=== PATIENT | female | born 1955 | race Caucasian/White ===

== ENCOUNTER 2016-05-26 08:57 | Emergency (ER) | payer OTHER ==
[2016-05-26] MEDS ORDERED: AMMONIA AROMATIC INHALANT (FLOOR STOCK) As Ordered ONE (08:59)
[2016-05-26] MEDS ORDERED: ONDANSETRON 4MG/2ML VIAL (J2405) As Ordered ONE (09:11)
[2016-05-26] MEDS ORDERED: fentaNYL 100 MCG/2 ML INJECTION (J3010) As Ordered ONE (09:12)
[2016-05-26 09:25] LABS: BASO % 0.4 % (0.0-1.0); EOS % 1.1 % (0.0-3.0); LARGE UNSTAINED CELL # 0.1 K/mm3 (0.0-0.4); LARGE UNSTAINED CELL % 2.2 % (0.0-4.0); LYMPH # 1.3 K/mm3 (1.5-4.5); LYMPH % 26.9 % (24.0-44.0); MEAN CORPUSCULAR HEMOGLOBIN 31.4 pg (27.0-33.0); MEAN CORPUSCULAR VOLUME 92.4 fl (80.0-96.0); MONO # 0.3 K/mm3 (0.0-0.8); NEUTROPHILS % 63.5 % (36.0-66.0); PLATELET COUNT, AUTOMATED 248 k/mm3 (150-450); RED CELL DISTRIBUTION WIDTH 11.7 % (11.5-14.5); WHITE BLOOD COUNT 4.7 K/mm3 (4.0-10.0)
--- NOTE | 2016-05-26 09:47 | REP ---
Left foot series: Four views. History: Lateral malleolar pain after a fall. Findings: Four views of the left foot show some diffuse osteopenia. There is osteoarthritis at the first MTP joint with spurring. Mild plantar calcaneal spurring is noted. No foot fracture is appreciated. Impression: Osteoarthritis and diffuse osteopenia. No foot fracture seen. Signed by Korey Miguel MD 05/26/2016 06:32 P
--- NOTE | 2016-05-26 09:48 | REP ---
Left ankle series: Four views. History: Lateral malleolar pain after fall. Findings: There is a chip fracture nondisplaced involving the tip of the lateral malleolus seen on the frontal radiographs. Ankle mortise is intact. No tibial fracture is seen. There is some midfoot osteoarthritis and mild heel spurring is seen. Impression: Nondisplaced lateral malleolar fracture with associated swelling. Midfoot osteoarthritis. Signed by Korey Miguel MD 05/26/2016 06:33 P
[2016-05-26 09:56] LABS: ANION GAP 7 MEQ/L (8-16); BLOOD UREA NITROGEN 18 MG/DL (7-18); CALCIUM LEVEL 8.8 MG/DL (8.8-10.2); CARBON DIOXIDE LEVEL 32 MEQ/L (21-32); CHLORIDE LEVEL 103 MEQ/L (98-107); CREATININE FOR GFR 0.95 MG/DL (0.55-1.02); GLOMERULAR FILTRATION RATE > 60.0 (>45); GLUCOSE, FASTING 85 MG/DL (80-110); POTASSIUM SERUM 3.8 MEQ/L (3.5-5.1); SODIUM LEVEL 142 MEQ/L (136-145)
--- NOTE | 2016-05-26 10:41 | EDDOCDS ---
Physician Documentation [facility] Name: Fiordaliza Albert Age: 60 yrs Sex: Female : 1955 Arrival Date: 05/26/2016 Time: 08:57 Bed 2 Private MD: Анна Hauser Disposition: 05/26/16 10:26 Discharged to Home/Self Care. Impression: Stress fracture, left ankle. - Condition is Stable. - Discharge Instructions: Ankle Fracture, Ankle Pain. - Prescriptions for Percocet 5- 325 mg Oral Tablet - take 1 tablet by ORAL route every 8 hours As needed MDD: 4 tabs; 15 tablet. - Medication Reconciliation, Work Release Form - 3 day, Local Pharmacy Hours form. - Follow up: Darvin Sandoval; When: Call to arrange an appointment; Reason: Continuance of care. - Problem is new. - Symptoms have improved. Historical: - Allergies: SULFA (SULFONAMIDES); - Home Meds: 1. Citalopram 15 mg Oral 1 tab nightly (Last dose: 05/25/2016) - PMHx: Depression; - PSHx: Tubal ligation; - Social history: Smoking status: Patient states was never smoker of tobacco. No barriers to communication noted, The patient speaks fluent [place] Leonean, Speaks appropriately for age. - Family history: Not pertinent. - : The pt / caregiver states he / she is not on anticoagulants. Home medication list is obtained from the patient. - Exposure Risk Screening:: None identified. Vital Signs: 05/26 09:06 BP 152 / 87; Pulse 85; Resp 18; Temp 97.9(O); Pulse Ox 100% on R/A; Weight 81.65 kg / jrd 180.01 lbs (R); Height 5 ft. 8 in. (172.72 cm) (R); Pain 9/10; 09:15 BP 136 / 75 (auto/); dsf 09:16 Pulse Ox 94% ; dsf 09:31 BP 149 / 88 (auto/); dsf 09:31 Pulse Ox 97% ; dsf 09:45 Pain 2/10; dsf 09:46 BP 139 / 79 (auto/); dsf 09:46 Resp 16; Pulse Ox 97% on R/A; dsf 09:47 BP 144 / 81 (auto/); dsf 09:47 Pulse Ox 97% ; dsf 10:01 BP 137 / 77 (auto/); dsf 10:02 Pulse 67; Resp 20; Temp 98.2(O); Pulse Ox 98% on R/A; Pain 0/10; dsf 10:16 BP 138 / 82 (auto/); dsf 10:16 Pulse Ox 98% ; dsf 09:06 Body Mass Index 27.37 (81.65 kg, 172.72 cm) jrd Procedures: 10:30 Fracture care/splinting: (Stabilizing Care) Splint applied to left leg using Orthoglass fg splint, applied by tech. Examined by me, post splint application: neurovascular intact, brisk capillary refill noted, Patient tolerated well. MDM: 09:06 IV Saline Lock ordered. fg 09:06 fentaNYL (PF) 25 mcg IVP once ordered. fg 09:06 Ondansetron 4 mg IVP once ordered. fg 09:07 CBC with Diff Ordered. EDMS 09:07 Basic Metabolic Profile Ordered. EDMS 09:08 Ankle, Complete Ordered. EDMS 09:08 Foot, Complete Ordered. EDMS 10:04 Financial registration complete. lg 10:37 [facility] Payment Agreement was scanned into [employer] and attached to record. lg Administered Medications: 09:17 Drug: fentaNYL (PF) 25 mcg [fentanyl (PF) 50 mcg/mL injection solution (0.5 mL)] Route: dsf IVP; Site: left antecubital; 09:45 Follow up: Pain 2/10 Adult; see charted VS dsf 09:17 Drug: Ondansetron 4 mg [ondansetron HCl 2 mg/mL intravenous solution (2 mL)] Route: dsf IVP; Site: left antecubital; Signatures: Dispatcher [employer] EDMS Jalen Delatorre, Reg Reg lg Judie Wilcox,RONIT RN dsf Mariia Lane MD MD fg The chart was reviewed and I authenticate all verbal orders and agree with the evaluation and treatment provided.Attachments: 10:37 [facility] Payment Agreement lg MTDD
--- NOTE | 2016-05-26 10:41 | EDDOCDS ---
Nurse's Notes [facility] Name: Fiordaliza Albert Age: 60 yrs Sex: Female : 1955 Arrival Date: 05/26/2016 Time: 08:57 Bed 2 Private MD: Анна Hauser Diagnosis: Stress fracture, left ankle Presentation: 05/26 09:00 Presenting complaint: EMS states: pt slipped and fell at the parking lot at work and dsf inured left ankle. Nurse gave pt 600 mg Motrin. Suicide/Homicide risk assessment- the patient denies having any suicidal and/or homicidal ideations and does not present with any other emotional, behavioral or mental health complaints. Transition of care: patient was not received from another setting of care. 09:00 Method Of Arrival: Ambulance dsf 09:00 Acuity: MARTIN Level 3 dsf 09:08 Adult Sepsis Screening: The patient does not have new or worsening altered mentation. dsf Patient's respiratory rate is less than 22. Systolic blood pressure is greater than 100. Patient has a qSOFA score of 0- Negative Sepsis Screen. Status: Patient is not a social services analyst or dependent. Triage Assessment: 09:05 General: Appears uncomfortable, Behavior is appropriate for age, cooperative. Pain: dsf Location: left lateral malleolus Pain currently is 8 out of 10 on a pain scale. Quality of pain is described as sharp. HIV screening NA for this visit Offered previously. The patient is triaged at the bedside. See Assessment in Nurses Notes section of ED record. Neurological: Level of Consciousness is awake, alert, Oriented to person, place, time. Cardiovascular: Capillary refill < 3 seconds Heart tones S1 S2 present. Respiratory: Airway is patent Respiratory effort is even, unlabored, Respiratory pattern is regular, symmetrical, Breath sounds are clear bilaterally. GI: Abdomen is non- distended Bowel sounds present X 4 quads. Abd is soft and non tender X 4 quads. Derm: Skin is pink, warm & dry. Musculoskeletal: Circulation, motion, and sensation intact Capillary refill < 3 seconds in left toes Range of motion limited in left ankle Reports pain in left lateral malleolus. Historical: - Allergies: SULFA (SULFONAMIDES); - Home Meds: 1. Citalopram 15 mg Oral 1 tab nightly (Last dose: 05/25/2016) - PMHx: Depression; - PSHx: Tubal ligation; - Social history: Smoking status: Patient states was never smoker of tobacco. No barriers to communication noted, The patient speaks fluent Libyan, Speaks appropriately for age. - Family history: Not pertinent. - : The pt / caregiver states he / she is not on anticoagulants. Home medication list is obtained from the patient. - Exposure Risk Screening:: None identified. Screenin:07 Screening information is obtained from the patient. Fall risk: At risk due to prior dsf history of falls, The following interventions are performed due to a positive Fall Risk Screen: Fall Risk is added to Special Handling on the patient Summary Screen. A Fall Risk Bracelet was applied to the patient. Side Rails are placed in the up position. A Call Verma is given with instruction to call for help when getting out of bed. Fall Alert bracelet is placed on the patient. Assistance ADL's: requires no assistance with activities of daily living. Abuse/DV Screen: The patient / caregiver reports he/she is: not in a situation that causes fear, pain or injury. Nutritional screening: No deficits noted. Advance Directives: Currently, there is a health care proxy, Ishan Epstein . home support is adequate. Assessment: 09:00 General: see triage assessment . dsf 09:54 General: Appears in no apparent distress, comfortable, Behavior is appropriate for age, dsf cooperative. Pain: Location: left lateral malleolus Pain currently is 2 out of 10 on a pain scale. Neurological: Level of Consciousness is awake, alert. Cardiovascular: Capillary refill < 3 seconds. Respiratory: Airway is patent Respiratory effort is even, unlabored, Respiratory pattern is regular, symmetrical. Derm: Skin is pink, warm & dry. 10:31 General: Appears in no apparent distress, comfortable, Behavior is appropriate for age, dsf cooperative. Pain: Denies pain. Neurological: Level of Consciousness is awake, alert. Cardiovascular: Capillary refill < 3 seconds. Respiratory: Airway is patent Respiratory effort is even, unlabored, Respiratory pattern is regular, symmetrical. GI: Abdomen is non- distended. Derm: Skin is pink, warm & dry. Musculoskeletal: Capillary refill < 3 seconds in left toes. Vital Signs: 09:06 BP 152 / 87; Pulse 85; Resp 18; Temp 97.9(O); Pulse Ox 100% on R/A; Weight 81.65 kg jrd (R); Height 5 ft. 8 in. (172.72 cm) (R); Pain 9/10; 09:15 BP 136 / 75 (auto/); dsf 09:16 Pulse Ox 94% ; dsf 09:31 BP 149 / 88 (auto/); dsf 09:31 Pulse Ox 97% ; dsf 09:45 Pain 2/10; dsf 09:46 BP 139 / 79 (auto/); dsf 09:46 Resp 16; Pulse Ox 97% on R/A; dsf 09:47 BP 144 / 81 (auto/); dsf 09:47 Pulse Ox 97% ; dsf 10:01 BP 137 / 77 (auto/); dsf 10:02 Pulse 67; Resp 20; Temp 98.2(O); Pulse Ox 98% on R/A; Pain 0/10; dsf 10:16 BP 138 / 82 (auto/); dsf 10:16 Pulse Ox 98% ; dsf 09:06 Body Mass Index 27.37 (81.65 kg, 172.72 cm) [facility] Vitals: 09:05 Log In Time N/A - ambulance arrival. dsf ED Course: 08:58 Patient visited by Bhumika Mathews, Nurse Navigator. lbd 08:58 Анна Hauser is Private Physician. lbd 08:58 Patient moved to Waiting lbd 08:59 Tamara Ashley,RN is Primary Nurse. lbd 08:59 Patient moved to 2 lbd 09:02 Triage Initiated dsf 09:[address] MD is Attending Physician. fg 09:05 Patient visited by Mariia Lane MD. fg 09:17 Basic Metabolic Profile Sent. dsf 09:17 Inserted saline lock: 20 gauge in left antecubital area and blood collected. The kc3 patient tolerated the procedure well. Labs drawn. (by ED staff). Sent per order to lab. 09:18 CBC with Diff Sent. dsf 09:23 Patient moved to Radiology dsf 09:35 Patient moved to 2 [facility] 09:54 Patient visited by Judie Wilcox,RONIT. dsf 10:16 Foot, Complete Returned. EDMS 10:16 Ankle, Complete Returned. EDMS 10:24 Darvin Sandoval is Referral Physician. fg 10:25 Patient visited by Maryan Whitaker PCA. rs6 10:25 Assist provider with fracture care. rs6 10:31 Discontinued lock intact, bleeding controlled, pressure dressing applied, No dsf redness/swelling at site. No procedures done that require assistance. Posterior lower leg splint applied on left leg. Patient with positive distal sensation and brisk distal capillary refill after application. 10:32 The patient / caregiver is instructed regarding the plan of care and ED course. dsf 10:37 Patient visited by Jalen Delatorre Reg. lg 10:37 [facility] Payment Agreement was scanned into [employer] and attached to record. lg Administered Medications: 09:17 Drug: fentaNYL (PF) 25 mcg [fentanyl (PF) 50 mcg/mL injection solution (0.5 mL)] Route: dsf IVP; Site: left antecubital; 09:45 Follow up: Pain 2/10 Adult; see charted VS dsf 09:17 Drug: Ondansetron 4 mg [ondansetron HCl 2 mg/mL intravenous solution (2 mL)] Route: dsf IVP; Site: left antecubital; Intake: Order Results: Lab Order: CBC with Diff; SPEC'M 05/26/16 09:16 Test: WHITE BLOOD COUNT; Value: 4.7; Range: 4.0-10.0; Units: K/mm3; Status: F Test: RED BLOOD COUNT; Value: 4.82; Range: 4.00-5.40; Units: M/mm3; Status: F Test: HEMOGLOBIN; Value: 15.1; Range: 12.0-16.0; Units: g/dl; Status: F Test: HEMATOCRIT; Value: 44.5; Range: 36.0-47.0; Units: %; Status: F Test: MEAN CORPUSCULAR VOLUME; Value: 92.4; Range: 80.0-96.0; Units: fl; Status: F Test: MEAN CORPUSCULAR HEMOGLOBIN; Value: 31.4; Range: 27.0-33.0; Units: pg; Status: F Test: MEAN CORPUSCULAR HGB CONC; Value: 34.0; Range: 32.0-36.5; Units: g/dl; Status: F Test: RED CELL DISTRIBUTION WIDTH; Value: 11.7; Range: 11.5-14.5; Units: %; Status: F Test: PLATELET COUNT, AUTOMATED; Value: 248; Range: 150-450; Units: k/mm3; Status: F Test: NEUTROPHILS %; Value: 63.5; Range: 36.0-66.0; Units: %; Status: F Test: LYMPH %; Value: 26.9; Range: 24.0-44.0; Units: %; Status: F Test: MONO %; Value: 6.0; Range: 0.0-5.0; Abnormal: Above high normal; Units: %; Status: F Test: EOS %; Value: 1.1; Range: 0.0-3.0; Units: %; Status: F Test: BASO %; Value: 0.4; Range: 0.0-1.0; Units: %; Status: F Test: LARGE UNSTAINED CELL %; Value: 2.2; Range: 0.0-4.0; Units: %; Status: F Test: NEUTROPHILS #; Value: 3.0; Range: 1.8-7.7; Units: K/mm3; Status: F Test: LYMPH #; Value: 1.3; Range: 1.5-4.5; Abnormal: Below low normal; Units: K/mm3; Status: F Test: MONO #; Value: 0.3; Range: 0.0-0.8; Units: K/mm3; Status: F Test: EOS #; Value: 0.0; Range: 0.0-0.50; Units: K/mm3; Status: F Test: BASO #; Value: 0.0; Range: 0.0-0.2; Units: K/mm3; Status: F Test: LARGE UNSTAINED CELL #; Value: 0.1; Range: 0.0-0.4; Units: K/mm3; Status: F Lab Order: Basic Metabolic Profile; SPEC'M 05/26/16 09:16 Test: GLUCOSE, FASTING; Value: 85; Range: 80-110; Units: MG/DL; Status: F Test: BLOOD UREA NITROGEN; Value: 18; Range: 7-18; Units: MG/DL; Status: F Test: CREATININE FOR GFR; Value: 0.95; Range: 0.55-1.02; Units: MG/DL; Status: F Test: GLOMERULAR FILTRATION RATE; Value: > 60.0; Range: >45; Status: F Test: SODIUM LEVEL; Value: 142; Range: 136-145; Units: MEQ/L; Status: F Test: POTASSIUM SERUM; Value: 3.8; Range: 3.5-5.1; Units: MEQ/L; Status: F Test: CHLORIDE LEVEL; Value: 103; Range: 98-107; Units: MEQ/L; Status: F Test: CARBON DIOXIDE LEVEL; Value: 32; Range: 21-32; Units: MEQ/L; Status: F Test: ANION GAP; Value: 7; Range: 8-16; Abnormal: Below low normal; Units: MEQ/L; Status: F Test: CALCIUM LEVEL; Value: 8.8; Range: 8.8-10.2; Units: MG/DL; Status: F Test Note: ; Units are mL/min/1.73 m2 Chronic Kidney Disease Staging per NKF: Stage I & II GFR >=60 Normal to Mildly Decreased Stage III GFR 30-59 Moderately Decreased Stage IV GFR 15-29 Severely Decreased Stage V GFR <15 Very Little GFR Left ESRD GFR <15 on CLINICAL MICROBIOLOGIST Radiology Order: Ankle, Complete Test: Ankle, Complete REASON FOR EXAMINATION: lateral mal pain after fall; Left ankle series: Four views.; ; History: Lateral malleolar pain after fall.; ; Findings: There is a chip fracture nondisplaced involving the tip of the lateral; malleolus seen on the frontal radiographs. Ankle mortise is intact. No tibial; fracture is seen. There is some midfoot osteoarthritis and mild heel spurring is; seen.; ; Impression:; ; Nondisplaced lateral malleolar fracture with associated swelling. Midfoot; osteoarthritis.; ; ; ; ; Unreviewed; Radiology Order: Foot, Complete Test: Foot, Complete REASON FOR EXAMINATION: lateral mal pain after fall; Left foot series: Four views.; ; History: Lateral malleolar pain after a fall.; ; Findings: Four views of the left foot show some diffuse osteopenia. There is; osteoarthritis at the first MTP joint with spurring. Mild plantar calcaneal; spurring is noted. No foot fracture is appreciated.; ; Impression:; ; Osteoarthritis and diffuse osteopenia. No foot fracture seen.; ; ; ; ; Unreviewed; Outcome: 10:26 Discharge ordered by Provider. fg 10:32 No special radiology studies were completed. Property sent home with patient. dsf 10:39 Discharge Assessment: Patient awake, alert and oriented x 3. No cognitive and/or dsf functional deficits noted. Patient verbalized understanding of disposition instructions. patient administered narcotics - yes. Pt provided with safe discharge. The following High Risk Discharge criteria are identified: None. Discharged to home via wheelchair, with family. Condition: stable. Discharge instructions given to patient, family, Instructed on discharge instructions, follow up and referral plans. medication usage, no driving heavy equipment, crutch walking, Demonstrated understanding of instructions, crutch walking, pt had her own crutches Pt was receptive of discharge instructions/ teaching. Prescriptions given X 1, Work note provided to patient. 10:40 Patient left the ED. dsf Signatures: Dispatcher [employer] EDMS Bhumika Mathews, Nurse Navigator Unit lbd Jalen Delatorre, Eloy Reg Michaela Lee 4 Judie Wilcox,RONIT RN dsf Jared Olivas, FIRE SAFETY MANAGER FIRE SAFETY MANAGER jrd Maryan Whitaker, FIRE SAFETY MANAGER FIRE SAFETY MANAGER rs6 Mariia [address] MD MD fg Crane, Kelsi,RN RN kc3 Corrections: (The following items were deleted from the chart) 09:08 09:00 Acuity: MARTIN Level 4 dsf dsf 09:53 09:46 Pulse Ox 97%; dsf dsf MTDD
--- NOTE | 2016-05-28 11:41 | EDDOCDS ---
Nurse's Notes [facility] Name: Fiordaliza Albert Age: 60 yrs Sex: Female : 1955 Arrival Date: 05/26/2016 Time: 08:57 Bed 2 Private MD: Анна Hauser Diagnosis: Stress fracture, left ankle Presentation: 05/26 09:00 Presenting complaint: EMS states: pt slipped and fell at the parking lot at work and dsf inured left ankle. Nurse gave pt 600 mg Motrin. Suicide/Homicide risk assessment- the patient denies having any suicidal and/or homicidal ideations and does not present with any other emotional, behavioral or mental health complaints. Transition of care: patient was not received from another setting of care. 09:00 Method Of Arrival: Ambulance dsf 09:00 Acuity: MARTIN Level 3 dsf 09:08 Adult Sepsis Screening: The patient does not have new or worsening altered mentation. dsf Patient's respiratory rate is less than 22. Systolic blood pressure is greater than 100. Patient has a qSOFA score of 0- Negative Sepsis Screen. 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 Triage Assessment: 09:05 General: Appears uncomfortable, Behavior is appropriate for age, cooperative. Pain: dsf Location: left lateral malleolus Pain currently is 8 out of 10 on a pain scale. Quality of pain is described as sharp. HIV screening NA for this visit Offered previously. The patient is triaged at the bedside. See Assessment in Nurses Notes section of ED record. Neurological: Level of Consciousness is awake, alert, Oriented to person, place, time. Cardiovascular: Capillary refill < 3 seconds Heart tones S1 S2 present. Respiratory: Airway is patent Respiratory effort is even, unlabored, Respiratory pattern is regular, symmetrical, Breath sounds are clear bilaterally. GI: Abdomen is non- distended Bowel sounds present X 4 quads. Abd is soft and non tender X 4 quads. Derm: Skin is pink, warm & dry. Musculoskeletal: Circulation, motion, and sensation intact Capillary refill < 3 seconds in left toes Range of motion limited in left ankle Reports pain in left lateral malleolus. Historical: - Allergies: SULFA (SULFONAMIDES); - Home Meds: 1. Citalopram 15 mg Oral 1 tab nightly (Last dose: 05/25/2016) - PMHx: Depression; - PSHx: Tubal ligation; - Social history: Smoking status: Patient states was never smoker of tobacco. No barriers to communication noted, The patient speaks fluent Gibraltarian, Speaks appropriately for age. - Family history: Not pertinent. - : The pt / caregiver states he / she is not on anticoagulants. Home medication list is obtained from the patient. - Exposure Risk Screening:: None identified. Screenin:07 Screening information is obtained from the patient. Fall risk: At risk due to prior dsf history of falls, The following interventions are performed due to a positive Fall Risk Screen: Fall Risk is added to Special Handling on the patient Summary Screen. A Fall Risk Bracelet was applied to the patient. Side Rails are placed in the up position. A Call Verma is given with instruction to call for help when getting out of bed. Fall Alert bracelet is placed on the patient. Assistance ADL's: requires no assistance with activities of daily living. Abuse/DV Screen: The patient / caregiver reports he/she is: not in a situation that causes fear, pain or injury. Nutritional screening: No deficits noted. Advance Directives: Currently, there is a health care proxy, Ishan Epstein . home support is adequate. Assessment: 09:00 General: see triage assessment . dsf 09:54 General: Appears in no apparent distress, comfortable, Behavior is appropriate for age, dsf cooperative. Pain: Location: left lateral malleolus Pain currently is 2 out of 10 on a pain scale. Neurological: Level of Consciousness is awake, alert. Cardiovascular: Capillary refill < 3 seconds. Respiratory: Airway is patent Respiratory effort is even, unlabored, Respiratory pattern is regular, symmetrical. Derm: Skin is pink, warm & dry. 10:31 General: Appears in no apparent distress, comfortable, Behavior is appropriate for age, dsf cooperative. Pain: Denies pain. Neurological: Level of Consciousness is awake, alert. Cardiovascular: Capillary refill < 3 seconds. Respiratory: Airway is patent Respiratory effort is even, unlabored, Respiratory pattern is regular, symmetrical. GI: Abdomen is non- distended. Derm: Skin is pink, warm & dry. Musculoskeletal: Capillary refill < 3 seconds in left toes. Vital Signs: 09:06 BP 152 / 87; Pulse 85; Resp 18; Temp 97.9(O); Pulse Ox 100% on R/A; Weight 81.65 kg jrd (R); Height 5 ft. 8 in. (172.72 cm) (R); Pain 9/10; 09:15 BP 136 / 75 (auto/); dsf 09:16 Pulse Ox 94% ; dsf 09:31 BP 149 / 88 (auto/); dsf 09:31 Pulse Ox 97% ; dsf 09:45 Pain 2/10; dsf 09:46 BP 139 / 79 (auto/); dsf 09:46 Resp 16; Pulse Ox 97% on R/A; dsf 09:47 BP 144 / 81 (auto/); dsf 09:47 Pulse Ox 97% ; dsf 10:01 BP 137 / 77 (auto/); dsf 10:02 Pulse 67; Resp 20; Temp 98.2(O); Pulse Ox 98% on R/A; Pain 0/10; dsf 10:16 BP 138 / 82 (auto/); dsf 10:16 Pulse Ox 98% ; dsf 09:06 Body Mass Index 27.37 (81.65 kg, 172.72 cm) [facility] Vitals: 09:05 Log In Time N/A - ambulance arrival. dsf ED Course: 08:58 Patient visited by Bhumika Mathews, Water Reclamation Systems Operator. lbd 08:58 Анна Hauser is Private Physician. lbd 08:58 Patient moved to Waiting lbd 08:59 Tamara Ashley,RN is Primary Nurse. lbd 08:59 Patient moved to 2 lbd 09:02 Triage Initiated dsf 09:[address] MD is Attending Physician. fg 09:05 Patient visited by Mariia Lane MD. fg 09:17 Basic Metabolic Profile Sent. dsf 09:17 Inserted saline lock: 20 gauge in left antecubital area and blood collected. The kc3 patient tolerated the procedure well. Labs drawn. (by ED staff). Sent per order to lab. 09:18 CBC with Diff Sent. dsf 09:23 Patient moved to Radiology dsf 09:35 Patient moved to 2 [facility] 09:54 Patient visited by Judie Wilcox,RONIT. dsf 10:16 Foot, Complete Returned. EDMS 10:16 Ankle, Complete Returned. EDMS 10:24 Darvin Sandoval is Referral Physician. fg 10:25 Patient visited by Maryan Whitaker PCA. rs6 10:25 Assist provider with fracture care. rs6 10:31 Discontinued lock intact, bleeding controlled, pressure dressing applied, No dsf redness/swelling at site. No procedures done that require assistance. Posterior lower leg splint applied on left leg. Patient with positive distal sensation and brisk distal capillary refill after application. 10:32 The patient / caregiver is instructed regarding the plan of care and ED course. dsf 10:37 Patient visited by Jalen Delatorre Reg. lg 10:37 [facility] Payment Agreement was scanned into [employer] and attached to record. lg 14:04 T-Sheet-- Draft Copy was scanned into [employer] and attached to record. gb Administered Medications: 09:17 Drug: fentaNYL (PF) 25 mcg [fentanyl (PF) 50 mcg/mL injection solution (0.5 mL)] Route: dsf IVP; Site: left antecubital; 09:45 Follow up: Pain 2/10 Adult; see charted VS dsf 09:17 Drug: Ondansetron 4 mg [ondansetron HCl 2 mg/mL intravenous solution (2 mL)] Route: dsf IVP; Site: left antecubital; Intake: Order Results: Lab Order: CBC with Diff; SPEC'M 05/26/16 09:16 Test: WHITE BLOOD COUNT; Value: 4.7; Range: 4.0-10.0; Units: K/mm3; Status: F Test: RED BLOOD COUNT; Value: 4.82; Range: 4.00-5.40; Units: M/mm3; Status: F Test: HEMOGLOBIN; Value: 15.1; Range: 12.0-16.0; Units: g/dl; Status: F Test: HEMATOCRIT; Value: 44.5; Range: 36.0-47.0; Units: %; Status: F Test: MEAN CORPUSCULAR VOLUME; Value: 92.4; Range: 80.0-96.0; Units: fl; Status: F Test: MEAN CORPUSCULAR HEMOGLOBIN; Value: 31.4; Range: 27.0-33.0; Units: pg; Status: F Test: MEAN CORPUSCULAR HGB CONC; Value: 34.0; Range: 32.0-36.5; Units: g/dl; Status: F Test: RED CELL DISTRIBUTION WIDTH; Value: 11.7; Range: 11.5-14.5; Units: %; Status: F Test: PLATELET COUNT, AUTOMATED; Value: 248; Range: 150-450; Units: k/mm3; Status: F Test: NEUTROPHILS %; Value: 63.5; Range: 36.0-66.0; Units: %; Status: F Test: LYMPH %; Value: 26.9; Range: 24.0-44.0; Units: %; Status: F Test: MONO %; Value: 6.0; Range: 0.0-5.0; Abnormal: Above high normal; Units: %; Status: F Test: EOS %; Value: 1.1; Range: 0.0-3.0; Units: %; Status: F Test: BASO %; Value: 0.4; Range: 0.0-1.0; Units: %; Status: F Test: LARGE UNSTAINED CELL %; Value: 2.2; Range: 0.0-4.0; Units: %; Status: F Test: NEUTROPHILS #; Value: 3.0; Range: 1.8-7.7; Units: K/mm3; Status: F Test: LYMPH #; Value: 1.3; Range: 1.5-4.5; Abnormal: Below low normal; Units: K/mm3; Status: F Test: MONO #; Value: 0.3; Range: 0.0-0.8; Units: K/mm3; Status: F Test: EOS #; Value: 0.0; Range: 0.0-0.50; Units: K/mm3; Status: F Test: BASO #; Value: 0.0; Range: 0.0-0.2; Units: K/mm3; Status: F Test: LARGE UNSTAINED CELL #; Value: 0.1; Range: 0.0-0.4; Units: K/mm3; Status: F Lab Order: Basic Metabolic Profile; SPEC'M 05/26/16 09:16 Test: GLUCOSE, FASTING; Value: 85; Range: 80-110; Units: MG/DL; Status: F Test: BLOOD UREA NITROGEN; Value: 18; Range: 7-18; Units: MG/DL; Status: F Test: CREATININE FOR GFR; Value: 0.95; Range: 0.55-1.02; Units: MG/DL; Status: F Test: GLOMERULAR FILTRATION RATE; Value: > 60.0; Range: >45; Status: F Test: SODIUM LEVEL; Value: 142; Range: 136-145; Units: MEQ/L; Status: F Test: POTASSIUM SERUM; Value: 3.8; Range: 3.5-5.1; Units: MEQ/L; Status: F Test: CHLORIDE LEVEL; Value: 103; Range: 98-107; Units: MEQ/L; Status: F Test: CARBON DIOXIDE LEVEL; Value: 32; Range: 21-32; Units: MEQ/L; Status: F Test: ANION GAP; Value: 7; Range: 8-16; Abnormal: Below low normal; Units: MEQ/L; Status: F Test: CALCIUM LEVEL; Value: 8.8; Range: 8.8-10.2; Units: MG/DL; Status: F Test Note: ; Units are mL/min/1.73 m2 Chronic Kidney Disease Staging per NKF: Stage I & II GFR >=60 Normal to Mildly Decreased Stage III GFR 30-59 Moderately Decreased Stage IV GFR 15-29 Severely Decreased Stage V GFR <15 Very Little GFR Left ESRD GFR <15 on [employer] Radiology Order: Ankle, Complete Test: Ankle, Complete REASON FOR EXAMINATION: lateral mal pain after fall; Left ankle series: Four views.; ; History: Lateral malleolar pain after fall.; ; Findings: There is a chip fracture nondisplaced involving the tip of the lateral; malleolus seen on the frontal radiographs. Ankle mortise is intact. No tibial; fracture is seen. There is some midfoot osteoarthritis and mild heel spurring is; seen.; ; Impression:; ; Nondisplaced lateral malleolar fracture with associated swelling. Midfoot; osteoarthritis.; ; ; Signed by; Korey Miguel MD 05/26/2016 06:33 P; Radiology Order: Foot, Complete Test: Foot, Complete REASON FOR EXAMINATION: lateral mal pain after fall; Left foot series: Four views.; ; History: Lateral malleolar pain after a fall.; ; Findings: Four views of the left foot show some diffuse osteopenia. There is; osteoarthritis at the first MTP joint with spurring. Mild plantar calcaneal; spurring is noted. No foot fracture is appreciated.; ; Impression:; ; Osteoarthritis and diffuse osteopenia. No foot fracture seen.; ; ; Signed by; Korey Miguel MD 05/26/2016 06:32 P; Outcome: 10:26 Discharge ordered by Provider. fg 10:32 No special radiology studies were completed. Property sent home with patient. dsf 10:39 Discharge Assessment: Patient awake, alert and oriented x 3. No cognitive and/or dsf functional deficits noted. Patient verbalized understanding of disposition instructions. patient administered narcotics - yes. Pt provided with safe discharge. The following High Risk Discharge criteria are identified: None. Discharged to home via wheelchair, with family. Condition: stable. Discharge instructions given to patient, family, Instructed on discharge instructions, follow up and referral plans. medication usage, no driving heavy equipment, crutch walking, Demonstrated understanding of instructions, crutch walking, pt had her own crutches Pt was receptive of discharge instructions/ teaching. Prescriptions given X 1, Work note provided to patient. 10:40 Patient left the ED. dsf Signatures: Dispatcher [employer] EDMS Bhumika Mathews, Water Reclamation Systems Operator Unit lbd Estelle Jacob, Reg Reg gb Jalen Delatorre, Reg Reg lg Michaela Lee 4 Judie Wilcox,RONIT RN dsf Jared Olivas, EMERGENCY MANAGEMENT COORDINATOR EMERGENCY MANAGEMENT COORDINATOR d Maryan Whitaker, EMERGENCY MANAGEMENT COORDINATOR EMERGENCY MANAGEMENT COORDINATOR rs6 Mariia Lane MD MD fg Crane, Kelsi,RN RN kc3 Corrections: (The following items were deleted from the chart) 09:08 09:00 Acuity: MARTIN Level 4 dsf dsf 09:53 09:46 Pulse Ox 97%; dsf dsf Chart Complete MTDD
--- NOTE | 2016-05-28 11:41 | EDDOCDS ---
Physician Documentation [facility] Name: Fiordaliza Albert Age: 60 yrs Sex: Female : 1955 Arrival Date: 05/26/2016 Time: 08:57 Bed 2 Private MD: Анна Hauser Disposition: 05/26/16 10:26 Discharged to Home/Self Care. Impression: Stress fracture, left ankle. - Condition is Stable. - Discharge Instructions: Ankle Fracture, Ankle Pain. - Prescriptions for Percocet 5- 325 mg Oral Tablet - take 1 tablet by ORAL route every 8 hours As needed MDD: 4 tabs; 15 tablet. - Medication Reconciliation, Work Release Form - 3 day, Local Pharmacy Hours form. - Follow up: Darvin Sandoval; When: Call to arrange an appointment; Reason: Continuance of care. - Problem is new. - Symptoms have improved. Historical: - Allergies: SULFA (SULFONAMIDES); - Home Meds: 1. Citalopram 15 mg Oral 1 tab nightly (Last dose: 05/25/2016) - PMHx: Depression; - PSHx: Tubal ligation; - Social history: Smoking status: Patient states was never smoker of tobacco. No barriers to communication noted, The patient speaks fluent Estonian, Speaks appropriately for age. - Family history: Not pertinent. - : The pt / caregiver states he / she is not on anticoagulants. Home medication list is obtained from the patient. - Exposure Risk Screening:: None identified. Vital Signs: 05/26 09:06 BP 152 / 87; Pulse 85; Resp 18; Temp 97.9(O); Pulse Ox 100% on R/A; Weight 81.65 kg / jrd 180.01 lbs (R); Height 5 ft. 8 in. (172.72 cm) (R); Pain 9/10; 09:15 BP 136 / 75 (auto/); dsf 09:16 Pulse Ox 94% ; dsf 09:31 BP 149 / 88 (auto/); dsf 09:31 Pulse Ox 97% ; dsf 09:45 Pain 2/10; dsf 09:46 BP 139 / 79 (auto/); dsf 09:46 Resp 16; Pulse Ox 97% on R/A; dsf 09:47 BP 144 / 81 (auto/); dsf 09:47 Pulse Ox 97% ; dsf 10:01 BP 137 / 77 (auto/); dsf 10:02 Pulse 67; Resp 20; Temp 98.2(O); Pulse Ox 98% on R/A; Pain 0/10; dsf 10:16 BP 138 / 82 (auto/); dsf 10:16 Pulse Ox 98% ; dsf 09:06 Body Mass Index 27.37 (81.65 kg, 172.72 cm) jrd Procedures: 10:30 Fracture care/splinting: (Stabilizing Care) Splint applied to left leg using Orthoglass fg splint, applied by tech. Examined by me, post splint application: neurovascular intact, brisk capillary refill noted, Patient tolerated well. MDM: 09:06 IV Saline Lock ordered. fg 09:06 fentaNYL (PF) 25 mcg IVP once ordered. fg 09:06 Ondansetron 4 mg IVP once ordered. fg 09:07 CBC with Diff Ordered. EDMS 09:07 Basic Metabolic Profile Ordered. EDMS 09:08 Ankle, Complete Ordered. EDMS 09:08 Foot, Complete Ordered. EDMS 10:04 Financial registration complete. lg 10:37 [facility] Payment Agreement was scanned into [employer] and attached to record. lg 14:04 T-Sheet-- Draft Copy was scanned into [employer] and attached to record. gb Administered Medications: 09:17 Drug: fentaNYL (PF) 25 mcg [fentanyl (PF) 50 mcg/mL injection solution (0.5 mL)] Route: dsf IVP; Site: left antecubital; 09:45 Follow up: Pain 2/10 Adult; see charted VS dsf 09:17 Drug: Ondansetron 4 mg [ondansetron HCl 2 mg/mL intravenous solution (2 mL)] Route: dsf IVP; Site: left antecubital; Signatures: Dispatcher [employer] EDMS Estelle Jacob, Reg Reg gb Jalen Delatorre, Reg Reg lg Judie Wilcox,RN RN dsf Mariia Lane MD MD fg The chart was reviewed and I authenticate all verbal orders and agree with the evaluation and treatment provided.Attachments: 10:37 [facility] Payment Agreement lg 14:04 T-Sheet-- Draft Copy gb Chart Complete MTDD
--- NOTE | 2016-05-28 11:41 | EDDOCDS ---
Physician Documentation [facility] Name: Fiordaliza Albert Age: 60 yrs Sex: Female : 1955 Arrival Date: 05/26/2016 Time: 08:57 Bed 2 Private MD: Анна Hauser Disposition: 05/26/16 10:26 Discharged to Home/Self Care. Impression: Stress fracture, left ankle. - Condition is Stable. - Discharge Instructions: Ankle Fracture, Ankle Pain. - Prescriptions for Percocet 5- 325 mg Oral Tablet - take 1 tablet by ORAL route every 8 hours As needed MDD: 4 tabs; 15 tablet. - Medication Reconciliation, Work Release Form - 3 day, Local Pharmacy Hours form. - Follow up: Darvin Sandoval; When: Call to arrange an appointment; Reason: Continuance of care. - Problem is new. - Symptoms have improved. Historical: - Allergies: SULFA (SULFONAMIDES); - Home Meds: 1. Citalopram 15 mg Oral 1 tab nightly (Last dose: 05/25/2016) - PMHx: Depression; - PSHx: Tubal ligation; - Social history: Smoking status: Patient states was never smoker of tobacco. No barriers to communication noted, The patient speaks fluent Dominican, Speaks appropriately for age. - Family history: Not pertinent. - : The pt / caregiver states he / she is not on anticoagulants. Home medication list is obtained from the patient. - Exposure Risk Screening:: None identified. Vital Signs: 05/26 09:06 BP 152 / 87; Pulse 85; Resp 18; Temp 97.9(O); Pulse Ox 100% on R/A; Weight 81.65 kg / jrd 180.01 lbs (R); Height 5 ft. 8 in. (172.72 cm) (R); Pain 9/10; 09:15 BP 136 / 75 (auto/); dsf 09:16 Pulse Ox 94% ; dsf 09:31 BP 149 / 88 (auto/); dsf 09:31 Pulse Ox 97% ; dsf 09:45 Pain 2/10; dsf 09:46 BP 139 / 79 (auto/); dsf 09:46 Resp 16; Pulse Ox 97% on R/A; dsf 09:47 BP 144 / 81 (auto/); dsf 09:47 Pulse Ox 97% ; dsf 10:01 BP 137 / 77 (auto/); dsf 10:02 Pulse 67; Resp 20; Temp 98.2(O); Pulse Ox 98% on R/A; Pain 0/10; dsf 10:16 BP 138 / 82 (auto/); dsf 10:16 Pulse Ox 98% ; dsf 09:06 Body Mass Index 27.37 (81.65 kg, 172.72 cm) jrd Procedures: 10:30 Fracture care/splinting: (Stabilizing Care) Splint applied to left leg using Orthoglass fg splint, applied by tech. Examined by me, post splint application: neurovascular intact, brisk capillary refill noted, Patient tolerated well. MDM: 09:06 IV Saline Lock ordered. fg 09:06 fentaNYL (PF) 25 mcg IVP once ordered. fg 09:06 Ondansetron 4 mg IVP once ordered. fg 09:07 CBC with Diff Ordered. EDMS 09:07 Basic Metabolic Profile Ordered. EDMS 09:08 Ankle, Complete Ordered. EDMS 09:08 Foot, Complete Ordered. EDMS 10:04 Financial registration complete. lg 10:37 [facility] Payment Agreement was scanned into [employer] and attached to record. lg 14:04 T-Sheet-- Draft Copy was scanned into [employer] and attached to record. gb Administered Medications: 09:17 Drug: fentaNYL (PF) 25 mcg [fentanyl (PF) 50 mcg/mL injection solution (0.5 mL)] Route: dsf IVP; Site: left antecubital; 09:45 Follow up: Pain 2/10 Adult; see charted VS dsf 09:17 Drug: Ondansetron 4 mg [ondansetron HCl 2 mg/mL intravenous solution (2 mL)] Route: dsf IVP; Site: left antecubital; Signatures: Dispatcher [employer] EDMS Estelle Jacob, Reg Reg gb Jalen Delatorre, Reg Reg lg Judie Wilcox,RN RN dsf Mariia Lane MD MD fg The chart was reviewed and I authenticate all verbal orders and agree with the evaluation and treatment provided.Attachments: 10:37 [facility] Payment Agreement lg 14:04 T-Sheet-- Draft Copy gb Chart Complete MTDD
== END 2016-05-26 10:40 | disposition home or self-care (01) ==
LOC: M ED 08:57
DX: S82.65XA Nondisplaced fracture of lateral malleolus of left fibula, initial encounter for closed fracture (principal); W01.0XXA Fall on same level from slipping, tripping and stumbling without subsequent striking against object, initial encounter; Y92.481 Parking lot as the place of occurrence of the external cause; Y93.89 Activity, other specified; Y99.8 Other external cause status; F32.9 Major depressive disorder, single episode, unspecified; Z79.899 Other long term (current) drug therapy; Z88.2 Allergy status to sulfonamides
CPT/HCPCS: 29515; 36415; 73610; 73630; 80048; 85025; 96374; 96375; 99285; J2405; J3010

== ENCOUNTER → 2018-02-22 | Outpatient (CLI) | payer OTHER | LOC: M WUC 17:36 | DX: R91.8 Other nonspecific abnormal finding of lung field (principal); J20.9 Acute bronchitis, unspecified; R06.02 Shortness of breath | CPT/HCPCS: 71046 ==

== ENCOUNTER 2018-06-08 17:05 | Emergency (ER) | payer OTHER ==
[~2018-06-08] VITALS: Ht 170.2 cm; Wt 77.3 kg
[2018-06-08] MEDS ORDERED: CITA10TA5 (17:16)
[2018-06-08] MEDS ORDERED: ONDANSETRON 4MG/2ML VIAL (J2405) IV ONE (17:30)
[2018-06-08] MEDS ORDERED: MORPHINE 4 MG/ML 1ML VIAL/SYRINGE (J2270) IV ONE (17:30)
--- NOTE | 2018-06-08 18:15 | REP ---
RIGHT SHOULDER, THREE VIEWS: HISTORY: Trauma. COMPARISON: 05/17/2006. There is a nondisplaced fracture of the proximal humerus. There is no dislocation. IMPRESSION:Nondisplaced fracture of the proximal humerus. Electronically Signed by Jer García MD 06/08/2018 06:34 P
[2018-06-08] MEDS ORDERED: NORCOTAB PO (18:23)
[2018-06-08 19:01] VITALS: BP 133/68
== END 2018-06-08 19:05 | disposition home or self-care (01) ==
LOC: EDBD 17:05 → EDSEX 17:05 → M ED 17:05
DX: S42.291A Other displaced fracture of upper end of right humerus, initial encounter for closed fracture (principal); W00.9XXA Unspecified fall due to ice and snow, initial encounter; Y92.099 Unspecified place in other non-institutional residence as the place of occurrence of the external cause; Y93.9 Activity, unspecified; Y99.9 Unspecified external cause status; F32.9 Major depressive disorder, single episode, unspecified; Z79.899 Other long term (current) drug therapy; Z88.2 Allergy status to sulfonamides
CPT/HCPCS: 73030; 96374; 96375; 99284; J2270; J2405

== ENCOUNTER → 2018-12-28 | Outpatient (REF) | payer OTHER ==
[~2018-12-28] MED LIST: ANAS1TAB2 PO; B-12100011 SL; CALC600C3 PO; CBD OIL; CITA10TA5; D 50CAP3 PO; FISH1CAP23 PO; HYDR-3715 PO; KELP150T2 PO; MULTCAP PO; VITA100020 PO
== END ==
LOC: M LAB REF 13:14
PROVIDERS: ATTEND Radiology Diagnostic Radiology
DX: D05.12 Intraductal carcinoma in situ of left breast (principal)

== ENCOUNTER → 2019-04-13 | Outpatient (CLI) | payer OTHER ==
[~2019-04-13] MED LIST changes: -ANAS1TAB2 PO
--- NOTE | 2019-04-16 10:13 | MEDONC ---
MEDICAL ONCOLOGY CLINIC NOTE DATE OF ENCOUNTER: 04/13/2019 IDENTIFICATION AND CHIEF COMPLAINT: Fiordaliza Rangel is a 63-year-old woman with recently-diagnosed infiltrating ductal carcinoma of the left breast, estrogen receptor positive, progesterone receptor positive, HER2/lisha non-overexpressing, stage I, [id number], who returns to the medical oncology practice for an additional brief discussion regarding adjuvant therapy. The patient reports "I see the radiation oncologist later today. I'm not sure why I had to come to see you, since you don't have all the results back yet." HISTORY OF PRESENT ILLNESS: Fiordaliza Rangel is a 63-year-old woman who was in her usual state of health until December 26, 2018, when she underwent screening mammography in [place], [place]. Findings were of a suspicious 5-mm nodule in the lower inner quadrant of the left breast. She underwent stereotactic core biopsy on December 28, 2018, under the care of Earl Abreu MD. The specimen was submitted to [facility], (Accession number [id number]), and examination of this reported well-differentiated invasive ductal carcinoma of the breast. The greatest linear extent of tumor was reported at 4 mm, with a tubular differentiation score of 2, nuclear pleomorphism score of 1, and mitotic rate score of 1. Angiolymphatic invasion was not seen. Estrogen receptors were positive at 99%, and progesterone receptors were positive at 95%. HER2/lisha was negative by immunohistochemistry. The patient was referred to Felicia Mccray MD, of the department of surgery in [place] and was initially evaluated on January 12, 2019. The patient was then taken to the operating room by Dr. Mccray for a lumpectomy with sentinel node dissection on March 23, 2019. Pathology report from that procedure was a focal ductal, solid, cribriform, and micropapillary types, with nuclear grade 2, and margins of resection negative. Left axillary sentinel lymph node biopsy was negative for metastatic carcinoma. The patient tolerated the surgery well but did experience local dehiscence at the surgical site in the left axilla and in the medial aspect of the breast, requiring repeat Steri-Strip placement. She has had no infectious complications and reports that she continues to recover well from surgery. She returns at this time for a brief additional discussion regarding adjuvant therapy. She was initially evaluated by medical oncology as an outpatient on April 06, 2019. She has had no fevers, chills, nor sweats; and her Karnofsky performance is estimated at 100%. ALLERGIES: The patient reports allergy to SULFA DRUGS. CURRENT MEDICATIONS: Vitamin D3 5000 units p.o. q. day, citalopram 15 mg p.o. q. day, vitamin B12 1 mg sublingually every day, Kelp 150 mcg p.o. q. day, multivitamin one tablet p.o. q. day, vitamin E 1000 units p.o. q. day, fish oil 1360 mg by mouth daily. PAST MEDICAL HISTORY: The patient has past history significant for hyperlipidemia, as well as osteopenia. There is history of fracture of the right arm in June 2018 status post repair and history of inguinal hernia status post repair while in high school. She has undergone bilateral knee arthroscopies for degenerative joint disease. She is 6, para 2, with 5 miscarriages and two healthy children. There is a distant history of cyst removal from the back. She reports that her right arm fracture has left her with residual decreased sensation in the right hand. There is a history of early-stage breast cancer as detailed above. 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 She is , and her two children are grown, one son living in [place] and a daughter living in the [facility]. Tobacco: The patient has never used tobacco. Alcohol: The patient rarely consumes alcohol. Illicit drugs: No history of illicit drug use. FAMILY HISTORY: The patient's parents in a motor vehicle accident in their 50s. The patient has seven siblings, three with multiple sclerosis and one with a diagnosis of lupus. REVIEW OF SYSTEMS: Neurologic: The patient reports decreased sensation in the right hand. No history of seizure disorder. No other focal neurologic deficits. No tremor. Respiratory: No history of tuberculosis. No cough. No shortness of breath. No chest pain. Cardiac: No history of myocardial infarction. No exertional chest pressure. No orthopnea. No leg edema. Gastrointestinal: No recent nausea, vomiting, abdominal pain, or diarrhea. No history of jaundice. Genitourinary: No report of hematuria. No report of nephrolithiases. No dysuria. Endocrine: No intolerance of heat or cold and no reported polyuria, polydipsia, polyphagia. Constitutional: No recent fevers, chills, or sweats. Weight has been stable. The remainder of the review of systems was obtained and was negative. PHYSICAL EXAMINATION: The patient is a well-developed, well-nourished woman, awake, alert, and fully oriented, friendly and cooperative, in no distress. Temperature 97.0, pulse 77, respirations 18, blood pressure 141/84, oxygen saturation 98% on room air. Skin: Full turgor, anicteric, and without lesions. HEENT examination: Normocephalic, atraumatic. Pupils equal, round, reactive to light and accommodate. Extraocular muscles intact. Sclerae anicteric. Oropharynx without lesions. Neck: Supple without thyromegaly. Lymphatics: No pathologic lymphadenopathy noted. No cervical, supraclavicular, axillary, nor inguinal regions. Lungs: Clear to auscultation. Spine: Nontender. Cardiac examination: Regular rhythm. Point of maximal impulse nondisplaced. S1, S2, without gallop, rub, or murmur appreciated. Full pulses. Breast examination: The breast examination was performed previously on April 06, 2019. At that time, there was no dominant mass in the right breast. The left breast was significant for a 4-cm healing incision in the left axilla and a 3.5-cm incision in the 9 o'clock position relative to the nipple. The incision site was firm but without discrete masses and was nontender without erythema. Abdomen: Active bowel sounds, soft, nontender without appreciable organomegaly. No guarding or rebound elicited. The liver percusses to 11 cm. The spleen is not palpable and percusses to 6 cm. Pelvic examination: Deferred. Rectal examination: Deferred. Extremities: Without clubbing, cyanosis, or edema. Neurological examination: Mental status intact. Cranial nerves intact. Motor and sensory intact aside from decreased sensation in the right fingertips. LABORATORY DATA: Breast biopsy at [facility], Accession number [id number], reports focal ductal carcinoma in situ as detailed above. Left axillary sentinel lymph node biopsy was negative for metastatic carcinoma. Comments regarding the pathology of the breast tissue report "There is no evidence of residual invasive carcinoma in the re-excision. Focal ductal carcinoma in situ, largest focus is 5 mm identified. This is 1 mm from the inferior margin and 3 mm from the posterior margin. All other margins are negative." Pathology from [facility] consultation report regarding breast specimen received at [facility] on January 12, 2019, reports well-differentiated invasive ductal carcinoma CBC dated April 06, 2019, includes white blood count 6800 per mcL, hemoglobin 14.6 g/dL, hematocrit 44.7%, platelet count 257,000, BUN 17, creatinine 0.90 mg per dL, calcium 9.7 mg per dL, total bilirubin 0.3 mg per dL, AST 19, ALT 24, alkaline phosphatase normal at 58, albumin 3.5, CEA level 0.6 ng/mL. IMPRESSION: Invasive ductal carcinoma of the left breast, [id number], status post lumpectomy and axillary sentinel node dissection. The patient has a very favorable prognosis, as she is hormone receptor positive, HER2/lisha nonoverexpressing with a primary lesion less than 0.5 cm in maximal dimension. This presentation has been reviewed in a peer-reviewed paper by [employer] (Clinical Breast Cancer 2010; Volume 11, Number 5, pages 325-331). An analysis of patients with these features showed a greater than 96% disease-free survival at 5 years for this population. NCCN guidelines recommend no adjuvant chemotherapy for this population with hormone receptor positive, node negative, HER2/lisha non-overexpressing tumors less than 0.5 cm in maximal dimension. It does, however, remains useful to obtain an Oncotype DX analysis, and this has been requested. However, the patient reports that she is unlikely to proceed with chemotherapy, and it is not anticipated that chemotherapy would be recommended unless the Oncotype DX score was very high. Consequently, anastrozole will be prescribed at this time, although the patient will not begin anastrozole until the Oncotype DX score has been reported and reviewed with her. PLAN: Mrs. Rangel will proceed with radiation oncology evaluation at this time. Oncotype DX score is pending. Anastrozole 1 mg by mouth daily has been prescribed, and it is anticipated she will be using this agent for a minimum of 5 years. She was scheduled to return to this practice for reevaluation in 2 months' time or sooner if the need arises. She requested to be contacted by telephone when the Oncotype DX score is available, and this will be done. Electronically Signed by Fidel Lopes MD 04/16/2019 06:03 P DD: Fidel Lopes MD 04/13/2019 12:41 P DT: aml 04/16/2019 09:34 A CC: ESTHER Carballo MD
== END ==
LOC: M ONCR 12:35
PROVIDERS: ATTEND Radiology Radiation Oncology
DX: C50.912 Malignant neoplasm of unspecified site of left female breast (principal)

== ENCOUNTER → 2019-05-01 | Outpatient (RCR) | payer OTHER ==
--- NOTE | 2019-04-20 16:25 | RADONC ---
RADIATION ONCOLOGY SIMULATION NOTE DATE: 04/18/2019 CHART NUMBER: [id number] SIMULATION NOTE: Ms. Rangel was taken to the CT scan for CT simulation of her left breast field. CT was accomplished without difficulty or discomfort. Radiation treatment planning is underway and radiation treatments will begin subsequently. An immobilization device was created without difficulty or discomfort. It will be used throughout the course of treatment. I was physically present throughout the course of CT simulation.
== END ==
LOC: M ONCR 04-18 14:18
PROVIDERS: ATTEND Radiology Radiation Oncology
DX: C50.312 Malignant neoplasm of lower-inner quadrant of left female breast (principal)

== ENCOUNTER 2019-05-28 07:50 | Outpatient (RCR) | payer OTHER ==
--- NOTE | 2019-05-08 06:41 | RADONC ---
RADIATION ONCOLOGY PROGRESS NOTE DATE: 05/07/2019 CHART #: [id number] Ms. Rangel is presently at a dose of 900 cGy to her left breast and is tolerating treatments quite well at this point with no significant difficulties related to her radiation therapy. She is having no breast or bone pain. REVIEW OF SYSTEMS: The patient's review of systems is noncontributory. Denies nausea, vomiting, fevers, chills, night sweats, diplopia, headaches, anxiety or depression, anorexia, weight loss, visual disturbances, chest pain, urinary or bowel difficulties, bone pain, or neurological problems. PHYSICAL EXAMINATION: The patient's skin is in good condition with no evidence of moist or dry desquamation. The remainder of her physical exam remains unchanged. Ms. Rangel is tolerating treatments quite well and radiation will continue as scheduled.
--- NOTE | 2019-05-15 08:20 | RADONC ---
RADIATION ONCOLOGY PROGRESS NOTE DATE: 05/14/2019 CHART NUMBER: [id number] Ms. Rangel is presently at a dose of 1800 cGy to her left breast and is tolerating treatments quite well at this point with no complaints related to her radiation therapy. She is having no breast or bone pain. REVIEW OF SYSTEMS: The patient's review of systems is noncontributory. She denies nausea, vomiting, fevers, chills, night sweats, diplopia, headaches, anxiety or depression, anorexia, weight loss, visual disturbances, chest pain, urinary or bowel difficulties, bone pain, or neurological problems. PHYSICAL EXAMINATION: The patient's skin is in good condition with no evidence of moist or dry desquamation. The remainder of her physical exam remains unchanged. Ms. Ranegl is tolerating treatments quite well and radiation will continue as scheduled.
--- NOTE | 2019-05-21 08:45 | RADONC ---
RADIATION ONCOLOGY PROGRESS NOTE DATE: 05/21/2019 CHART NUMBER: [id number] Ms. Rangel is presently at a dose of 2700 cGy to her left breast and overall is tolerating treatments quite well with no significant difficulties related to her radiation therapy other than anxiety and depression. The patient's review of systems is noncontributory except for some emotional breakdowns. She denies nausea, vomiting, fevers, chills, night sweats, diplopia, headaches, anxiety or depression, anorexia, weight loss, visual disturbances, chest pain, urinary or bowel difficulties, bone pain, or neurological problems. PHYSICAL EXAMINATION: The patient's skin is in good condition with no evidence of moist or dry desquamation. The remainder of her physical exam remains unchanged. Ms. Rangel is tolerating treatments well and radiation will continue as scheduled. I have brought in our nurse navigator Tyra to see if we can set her up with some support groups or counseling. I hope we can be of some benefit to her with this. Once again the meantime radiation will continue as scheduled and we will be as supportive as possible here.
[~2019-05-28 07:50] MED LIST changes: +ANAS1TAB2 PO
--- NOTE | 2019-05-29 14:28 | RADONC ---
RADIATION ONCOLOGY PROGRESS NOTE DATE: 05/28/2019 CHART #: [id number] Ms. Rangel is thus far at a dose of 3420 cGy to her left breast and is presenting today before treatment complaining of discomfort especially in the inframammary region. She is having no bone pain or other complaints. REVIEW OF SYSTEMS: The patient's review of systems is positive for some breast discomfort but is otherwise noncontributory. Denies nausea, vomiting, fevers, chills, night sweats, diplopia, headaches, anxiety or depression, anorexia, weight loss, visual disturbances, chest pain, urinary or bowel difficulties, bone pain, or neurological problems. PHYSICAL EXAMINATION: The patient's skin shows brisk tanning and erythema over the entire breast region. In the inframammary area, There is the beginnings dry desquamation. The remainder of her physical exam remains unchanged. In light of the fact that the patient is allergic to sulfa drugs and therefore Silvadene, I have given the option of taking a treatment break. I let her know in detail that this will continue to worsen, especially if she continues with radiation it can become quite painful. 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 After a lengthy discussion, the patient decided to take off at least today and tomorrow. She will see how she is feeling on Tuesday or . I let her know that if she needs the whole week off it would be reasonable. She still has almost 3 weeks of treatment to go.
== END 2019-06-01 ==
LOC: M ONCR 07:50
PROVIDERS: ATTEND Radiology Radiation Oncology
DX: C50.312 Malignant neoplasm of lower-inner quadrant of left female breast (principal)

== ENCOUNTER 2019-06-11 08:24 | Inpatient (IN) | payer OTHER ==
[~2019-06-11] VITALS: Ht 170.2 cm; Wt 83.9 kg
[~2019-06-11 08:24] MED LIST changes: -CITA10TA5; +CITA10TA5 PO
[2019-06-11] MEDS ORDERED: AMMONIA AROMATIC INHALANT (FLOOR STOCK) As Ordered ONE (08:28)
[2019-06-11 08:51] LABS: BASO % 0.4 % (0.0-1.0); EOS # 0.1 10^3/uL (0.0-0.5); EOS % 2.4 % (0.0-3.0); HEMATOCRIT 46.3 % (36.0-47.0); MEAN CORPUSCULAR HEMOGLOBIN 30.4 pg (27.0-33.0); MEAN CORPUSCULAR HGB CONC 32.4 g/dl (32.0-36.5); MEAN CORPUSCULAR VOLUME 93.9 fl (80.0-96.0); MONO # 0.6 10^3/uL (0.0-0.8); NEUTROPHILS # 3.2 10^3/uL (1.5-8.5); NEUTROPHILS % 64.8 % (36.0-66.0); PLATELET COUNT, AUTOMATED 206 10^3/uL (150-450); RED BLOOD COUNT 4.93 10^6/uL (4.00-5.40)
--- NOTE | 2019-06-11 08:57 | REP ---
Clinical: Syncope . Comparison: 05/17/2006 . Findings: The ventricles, sulci, and cisterns are normal in position and appearance. Lofton-white differentiation is maintained. No acute intracranial hemorrhage, mass/mass effect, pathology or trauma/injury. No evidence for acute infarction. No extra-axial fluid collection. Calvarium is intact. Paranasal sinuses and mastoid air cells are clear. Impression: Normal noncontrast head CT. No evidence for acute intracranial pathology or trauma/injury. Electronically Signed by Cristian Myles MD 06/11/2019 08:48 A
[2019-06-11] MEDS: DOCUSATE SODIUM 100 MG CAP PO SCH ×2 (09:00→20:52)
[2019-06-11 09:18] LABS: BLOOD UREA NITROGEN 15 MG/DL (7-18); CALCIUM LEVEL 9.7 MG/DL (8.8-10.2); CARBON DIOXIDE LEVEL 28 MEQ/L (21-32); CHLORIDE LEVEL 106 MEQ/L (98-107); CK-MB VALUE MASS < 1.0 NG/ML (<3.6); CPK CREATINE PHOSPHOKINASE 81 U/L (26-192); CREATININE FOR GFR 0.89 MG/DL (0.55-1.30); FREE T4 1.07 NG/DL (0.76-1.46); GLOMERULAR FILTRATION RATE > 60.0 (>45); GLUCOSE, FASTING 100 MG/DL (70-100); MB/CK RELATIVE INDEX 1.23 (< OR =4); POTASSIUM SERUM 3.4 MEQ/L (3.5-5.1); SODIUM LEVEL 139 MEQ/L (136-145); TROPONIN I < 0.02 NG/ML (< 0.10)
[2019-06-11 09:33] LABS: INR 1.02; PROTHROMBIN TIME 13.2 SECONDS (11.8-14.0)
[2019-06-11 09:34] LABS: PARTIAL THROMBOPLASTIN TIME 28.4 SECONDS (25.0-38.4)
[2019-06-11] MEDS ORDERED: B-12100010 PO (10:14)
[2019-06-11] MEDS ORDERED: VITA500079 PO (10:14)
[2019-06-11] MEDS ORDERED: OMEG10002 PO (10:14)
[2019-06-11] MEDS ORDERED: MAALOX 30 ML SUSP *UDC PO PRN (10:45)
--- NOTE | 2019-06-11 12:12 | HPEPDOC ---
General Date of Admission Jun 11, 2019 at 10:38 Date of Service: Jun 11, 2019 Chief Complaint The patient is a 63-year-old female admitted with a reason for visit of Breast Cancer,Syncope. Source: Patient History of Present Illness 53 year old female with PMH of left breast cancer s/p lumpectomy in dec 2018 with axillary lymph node dissection currently undergoing radiation therapy was at the radiation therapy suite this am. SHe just finished her treatment and was waiting in the waiting room to see the oncologist when thee nurse found her slumped over in the chair non responsive. Hugh stock was called and patient transferred to the ED. SHe had pulse and spontaneous respirations. As per ED physician on first presentation she was non responsive her eyes were closed and flickering she did not respond to smelling salt. Her vitals were stable. She was admitted for Syncope. The pateint says that she remembers feeling dizzy after she got out of the radiation table and remembers going o the waiting room and sitting in the chair. Then the next thing she remembers is seeing lots of people around her being lifted to a stretcher and then remembers the ED clearly. She did have a headache this morning which as per is due to her sinuses which she often has when the weather changes. The headache is mostly at the back of the eyes and feeling like heaviness. SHe did not loose control of bowel or bladder, no noted seizure like activity. She did have 3 other episodes of passing out in her life. She is being admitted for evaluation for syncope. Home Medications Scheduled Anastrozole (Anastrozole) 1 Mg Tablet, 1 MG PO DAILY for breast cancer adjuvant therapy Take 1 mg po daily for at least 5 years Calcium Carbonate/Vitamin D3 (Calcium 600+D Softgel) 1 Each Capsule, 1 CAP PO DAILY, (Reported) Cholecalciferol (Vitamin D3) (Vitamin D3) 5,000 Unit Tab.rapdis, 5,000 UNIT PO DAILY, (Reported) Citalopram Hydrobromide (Citalopram HBr) 10 Mg Tab, 20 MG PO QHS, (Reported) Cyanocobalamin (Vitamin B-12) (Vitamin B-12) 1,000 Mcg Capsule, 1,000 MCG PO DAILY, (Reported) Iodine (Kelp) 150 Mcg Tablet, 150 MCG PO DAILY, (Reported) Multivitamin (Multivitamins) 1 Each Capsule, 1 CAP PO DAILY, (Reported) [place]-3/Dha/Epa/Fish Oil (Fish Oil 1,000 mg Softgel) 1 Each Capsule, 2,000 MG PO DAILY, (Reported) Vitamin E Acetate (Vitamin E) 1,000 Unit Capsule, 1,000 UNIT PO DAILY, (Reported) Allergies Coded Allergies: Sulfa (Sulfonamide Antibiotics) (Verified Allergy, Intermediate, hives, 04/13/19) Past Medical History Medical History Left breast cancer s/p lumpectomy and axillary dissection now getting RT, judy callahan disease, sinus problems, arthritis Surgical History Bilateral knee arthroscopies and meniscus surgeries, occipital injections for headache, abdominal hernia repair, abril;mpectomy left breast with left axillary lymph node dissection. Family History Significant Family History: Other (MS in 2 brothers, 1 sister, Father with stroke, Another sister with autoimmune diesease, another sister with SLE.) Social History * Smoker: non-smoker Alcohol: rarely Drugs: denies A-FIB/CHADSVASC A-FIB History Current/History of A-Fib/PAF?: No Review of Systems Constitutional: Denies: Chills, Fever, Night Sweats Eyes: Denies: Pain, Vision change ENT: Reports: Head Aches Skin: Reports: Rash (on the left breast after radiation like sunburn); Denies: Lesions, Breakdown Pulmonary: Denies: Dyspnea, Cough Cardiovascular: Reports: Lt Headedness; Denies: Chest Pain, Palpitations, Orthopnea, Paroxysmal Noc. Dyspnea Gastrointestinal: Denies: Nausea, Vomiting, Abdominal Pain, Diarrhea Genitourinary: Denies: Dysuria, Frequency, Incontinence, Retention Hematologic: Denies: Bruising, Bleeding Excessively Musculoskeletal: Reports: Neck Pain, Joint Pain Neurological: Denies: Weakness, Numbness, Change in speech, Confusion Psych: Reports: Mood Normal; Denies: Depression, Memory Issues Physical Examination General Exam: Positive: Alert, Cooperative, No Acute Distress Eye Exam: Positive: PERRLA, Conjunctiva & lids normal, EOMI; Negative: Sclera icteric ENT Exam: Positive: Atraumatic, Mucous membr. moist/pink, Pharynx Normal Neck Exam: Positive: Supple; Negative: JVD, thyromegaly Chest Exam: Positive: Clear to auscultation, Normal air movement Heart Exam: Positive: Rate Normal, Regular Rhythm, Normal S1, Normal S2; Negative: Murmurs, Rubs Abdomen Exam: Positive: Normal bowel sounds, Soft; Negative: Tenderness, Hepatospenomegaly Extremity Exam: Positive: Normal pulses; Negative: Clubbing, Cyanosis, Edema Skin Exam: Positive: Other skin issue (left breast with erythema) Neuro Exam: Positive: Normal Speech, Normal Tone, Sensation Intact Psych Exam: Positive: Mental status NL, Mood NL, Oriented x 3 Vital Signs Vital Signs Date Time Temp Pulse Resp B/P (MAP) Pulse Ox O2 Delivery O2 Flow Rate FiO2 06/11/19 11:22 64 99 06/11/19 11:00 171/82 (111) 06/11/19 10:22 16 06/11/19 08:51 Room Air 06/11/19 08:36 98.8 Laboratory Data Labs 24H Laboratory Tests 2 06/11/19 08:35: Bedside Glucose (Misc Panel) 113 06/11/19 08:38: Immature Granulocyte % (Auto) 0.4, Neutrophils (%) (Auto) 64.8, Lymphocytes (%) (Auto) 20.0L, Monocytes (%) (Auto) 12.0H, Eosinophils (%) (Auto) 2.4, Basophils (%) (Auto) 0.4, Neutrophils # (Auto) 3.2, Lymphocytes # (Auto) 1.0L, Monocytes # (Auto) 0.6, Eosinophils # (Auto) 0.1, Basophils # (Auto) 0.0, Nucleated Red Blood Cells % (auto) 0.0, Prothrombin Time 13.2, Prothromb Time International Ratio 1.02, Activated Partial Thromboplast Time 28.4, Anion Gap 5L, Glomerular Filtration Rate > 60.0, Calcium Level 9.7, Total Creatine Kinase 81, Creatine Kinase MB < 1.0, Creatine Kinase MB Relative Index 1.23, Troponin I < 0.02, Thyroid Stimulating Hormone (TSH) 1.250, Free Thyroxine 1.07 CBC/BMP Laboratory Tests 06/11/19 08:38 Assessment/Plan 53 year old female with PMH of left breast cancer s/p lumpectomy in dec 2018 wi th axillary lymph node dissection currently undergoing radiation therapy was at the radiation therapy suite this am. SHe just finished her treatment and was waiting in the waiting room to see the oncologist when thee nurse found her slumped over in the chair non responsive. Max cart was called and patient transferred to the ED. SHe had pulse and spontaneous respirations. As per ED physician on first presentation she was non responsive her eyes were closed and flickering she did not respond to smelling salt. Her vitals were stable. She was admitted for Syncope. Syncope most probably vasovagal or orthostatic will check orthostatic vitals CT head negative in view of breast Ca i did a MRi brain with contrast which is also negative will monitor on telemetry for 24 hours for any cardiac events. Ekg normal sinus rhythm with RBBB. Breast ca s/p lumpectomy now undergoing radiation therapy will continue tomorrow. Hypokalemia replaced. Plan / VTE VTE Prophylaxis Ordered?: Yes MARLA HICKMAN MD Jun 11, 2019 12:12
--- NOTE | 2019-06-11 12:33 | REP ---
Clinical: Syncope/near-syncopal episode . Comparison: None . Findings: The mediastinum and cardiac silhouette are stable and within normal limits for portable technique. The lung hankins are clear without acute consolidation, effusion, or pneumothorax. Skeletal structures are intact. Impression: No acute cardiopulmonary process appreciated. Electronically Signed by Cristian Myles MD 06/11/2019 12:23 P
[2019-06-11 14:36] VITALS: BP_SYST 134; BP_SYST 136; BP_DIAS 72; BP_DIAS 73
[2019-06-11 16:00] VITALS: BP 136/72
[2019-06-11] MEDS ORDERED: POTASSIUM CHLORIDE 10 MEQ SR TABLET PO ONE (16:00)
[2019-06-11] MEDS ORDERED: PROHANCE 279.3MG/ML 15ML VIAL (A9576) As Ordered ONE (18:13)
--- NOTE | 2019-06-11 19:38 | ECGEPIP ---
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
--- NOTE | 2019-06-11 20:53 | REPVR ---
PROCEDURE INFORMATION: Exam: MR Head Without and With Contrast Exam date and time: 06/11/2019 7:07 PM Age: 63 years old Clinical indication: Dizziness and syncope and collapse; Patient HX: Dizziness, syncope, HX breast CA; Additional info: Syncope with h/o breast cancer TECHNIQUE: Imaging protocol: MR of the head without and with intravenous contrast. Contrast material: PROHANCE; Contrast volume: 14 ml; Contrast route: 22G; COMPARISON: CT Head without contrast 06/11/2019 8:40 AM FINDINGS: Mild age-related volume loss. Major vascular flow voids at the skull base are preserved. No extra-axial fluid collection. No midline shift or intracranial mass effect. Mild nonspecific white matter gliosis, probable chronic microvascular ischemia. No diffusion restriction. No pathologic intracranial enhancement. Incidental developmental venous anomalies involving the high posterior right frontal lobe and the right occipital lobe. Minimal paranasal sinus disease. No mastoid effusion. IMPRESSION: No acute intracranial abnormality. Electronically signed by: Sukumar Mills On 06/11/2019 20:53:47 PM
[2019-06-11] MEDS ORDERED: CitaloPRAM (CeleXA) 20 MG TAB PO SCH (21:00)
[2019-06-12 06:34] LABS: BASO % 0.5 % (0.0-1.0); EOS # 0.1 10^3/uL (0.0-0.5); EOS % 3.5 % (0.0-3.0); HEMATOCRIT 47.5 % (36.0-47.0); HEMOGLOBIN 15.3 g/dl (12.0-15.5); LYMPH % 26.5 % (24.0-44.0); MEAN CORPUSCULAR HEMOGLOBIN 30.7 pg (27.0-33.0); MEAN CORPUSCULAR HGB CONC 32.2 g/dl (32.0-36.5); MEAN CORPUSCULAR VOLUME 95.4 fl (80.0-96.0); MONO # 0.4 10^3/uL (0.0-0.8); MONO % 11.5 % (0.0-5.0); NEUTROPHILS # 2.2 10^3/uL (1.5-8.5); NEUTROPHILS % 57.7 % (36.0-66.0); PLATELET COUNT, AUTOMATED 194 10^3/uL (150-450); RED BLOOD COUNT 4.98 10^6/uL (4.00-5.40); WHITE BLOOD COUNT 3.7 10^3/uL (4.0-10.0)
[2019-06-12 06:57] LABS: BLOOD UREA NITROGEN 15 MG/DL (7-18); CALCIUM LEVEL 9.1 MG/DL (8.8-10.2); CARBON DIOXIDE LEVEL 26 MEQ/L (21-32); CHLORIDE LEVEL 108 MEQ/L (98-107); CREATININE FOR GFR 0.86 MG/DL (0.55-1.30); GLOMERULAR FILTRATION RATE > 60.0 (>45); GLUCOSE, FASTING 84 MG/DL (70-100); POTASSIUM SERUM 4.3 MEQ/L (3.5-5.1); SODIUM LEVEL 140 MEQ/L (136-145)
[2019-06-12] MEDS: DOCUSATE SODIUM 100 MG CAP PO SCH (07:56)
[2019-06-12 08:00] VITALS: BP 138/76
[2019-06-12] MEDS ORDERED: ENOXAPARIN 40 MG/0.4 ML SYRINGE (J1650) SC SCH (09:00)
[2019-06-12] MEDS ORDERED: CYANOCOBALAMIN 500 MCG TAB PO SCH (09:00)
--- NOTE | 2019-06-12 12:41 | DS.PDOC ---
Discharge Summary General Date of Admission Jun 11, 2019 at 10:38 Date of Discharge 06/12/19 Discharge Summary PROCEDURES PERFORMED DURING STAY: [None]. DISCHARGE DIAGNOSES: Vasovagal syncope Hypokalemia SECONDARY DIAGNOSIS: Breast cancers/p lumpectomy and axillary dissection undergoing Radiation therapy . COMPLICATIONS/CHIEF COMPLAINT: Breast Cancer,Syncope. HISTORY OF PRESENT ILLNESS: See history and physical exam. HOSPITAL COURSE: 53 year old female with PMH of left breast cancer s/p lumpectom y in dec 2018 with axillary lymph node dissection currently undergoing radiation therapy was at the radiation therapy suite this am. SHe just finished her treatment and was waiting in the waiting room to see the oncologist when thee nurse found her slumped over in the chair non responsive. Max cart was called and patient transferred to the ED. She had pulse and spontaneous respirations. As per ED physician on first presentation she was non responsive her eyes were closed and flickering she did not respond to smelling salt. Her vitals were stable. She was admitted for Syncope. Syncope most probably vasovagal orthostatic vitals were negative. CT head negative MRi brain with and without contranst was negative Telemetry no cardiac events in 24 hours. Breast ca s/p lumpectomy now undergoing radiation therapy will continue tomorrow. Hypokalemia replaced. DISCHARGE MEDICATIONS: Please see below. ALLERGIES: Please see below. PHYSICAL EXAMINATION ON DISCHARGE: VITAL SIGNS: Please see below. GENERAL: Awake alert oriented x 3, sitting up in chair in distress. HEENT: Normocephalic atraumatic , moist mucous membranes, anicteric eyes. NECK: Supple , no JVD, CARDIOVASCULAR EXAMINATION: S1, S2 regular no rub, murmur or gallop RESPIRATORY EXAMINATION: bilateral vesicular breath sounds. clear to auscultation ABDOMINAL EXAMINATION: Soft nontender, no organomegaly, normal bowel sounds EXTREMITIES: No edema NEUROLOGICAL EXAMINATION: No focal neurodeficits. LABORATORY DATA: Please see below. ACTIVITY: [As tolerated]. DIET: As tolerated DISCHARGE PLAN: home DISPOSITION: 01 Home, Self-Care. DISCHARGE INSTRUCTIONS: PMD in 2 weeks Radiation and oncology as per outpatient schedule DISCHARGE CONDITION: [Stable]. TIME SPENT ON DISCHARGE: 35 minutes. Vital Signs/I&Os Vital Signs Date Time Temp Pulse Resp B/P (MAP) Pulse Ox O2 Delivery O2 Flow Rate FiO2 06/12/19 08:00 98.1 77 19 138/76 (96) 99 Room Air I&O- Last 24 Hours up to 6 AM 06/12/19 06:00 Intake Total 600 ml Output Total 2050 ml Balance -1450 ml Laboratory Data Labs 24H Laboratory Tests 2 06/12/19 05:57: Immature Granulocyte % (Auto) 0.3, Neutrophils (%) (Auto) 57.7, Lymphocytes (%) (Auto) 26.5, Monocytes (%) (Auto) 11.5H, Eosinophils (%) (Auto) 3.5H, Basophils (%) (Auto) 0.5, Neutrophils # (Auto) 2.2, Lymphocytes # (Auto) 1.0L, Monocytes # (Auto) 0.4, Eosinophils # (Auto) 0.1, Basophils # (Auto) 0.0, Nucleated Red Blood Cells % (auto) 0.0, Anion Gap 6L, Glomerular Filtration Rate > 60.0, Calcium Level 9.1 CBC/BMP Laboratory Tests 06/12/19 05:57 Discharge Medications Scheduled Anastrozole (Anastrozole) 1 Mg Tablet, 1 MG PO DAILY for breast cancer adjuvant therapy Take 1 mg po daily for at least 5 years Calcium Carbonate/Vitamin D3 (Calcium 600+D Softgel) 1 Each Capsule, 1 CAP PO DAILY, (Reported) Cholecalciferol (Vitamin D3) (Vitamin D3) 5,000 Unit Tab.rapdis, 5,000 UNIT PO DAILY, (Reported) Citalopram Hydrobromide (Citalopram HBr) 10 Mg Tab, 20 MG PO QHS, (Reported) Cyanocobalamin (Vitamin B-12) (Vitamin B-12) 1,000 Mcg Capsule, 1,000 MCG PO DAILY, (Reported) Iodine (Kelp) 150 Mcg Tablet, 150 MCG PO DAILY, (Reported) Multivitamin (Multivitamins) 1 Each Capsule, 1 CAP PO DAILY, (Reported) [place]-3/Dha/Epa/Fish Oil (Fish Oil 1,000 mg Softgel) 1 Each Capsule, 2,000 MG PO DAILY, (Reported) Vitamin E Acetate (Vitamin E) 1,000 Unit Capsule, 1,000 UNIT PO DAILY, (Reported) Allergies Coded Allergies: Sulfa (Sulfonamide Antibiotics) (Verified Allergy, Intermediate, hives, 04/13/19) MARLA HICKMAN MD Jun 12, 2019 11:55
== END 2019-06-12 10:37 | disposition home or self-care (01) | DRG 312 ==
LOC: M ED 08:24 → M ED INP 10:38 → ENRESERV 13:54 → M PCU 14:37
PROVIDERS: ADMIT Internal Medicine Nephrology; ATTEND Internal Medicine Nephrology
DX: R55 Syncope and collapse (principal); E87.6 Hypokalemia; Z79.899 Other long term (current) drug therapy; Z88.2 Allergy status to sulfonamides; C50.912 Malignant neoplasm of unspecified site of left female breast

== ENCOUNTER 2019-06-27 07:55 | Outpatient (RCR) | payer OTHER ==
--- NOTE | 2019-06-04 12:30 | RADONC ---
RADIATION ONCOLOGY PROGRESS NOTE DATE: 06/04/2019 CHART NUMBER: [id number] PROGRESS NOTE: Ms. Rangel is thus far at a dose of 3420 cGy and was last treated on 05/25/2019. I saw her last Tuesday and the patient was complaining of tenderness and pain of the skin. She had a brisk skin reaction with bright erythema and tanning present. The patient has been on rest for a week and is here now for reevaluation. The patient is complaining of continued breast pain, although she reports it is better. She tells me she had difficulty sleeping and is quite anxious about the thought of restarting radiation today. I have given the patient an additional couple of days on treatment break. We will reevaluate her either on Tuesday or the choices hers. I said I prefer not to let her have two full weeks off. PHYSICAL EXAMINATION: The patient's skin actually is in good condition. There is erythema and tanning present but no evidence of moist or dry desquamation. The remainder of her physical exam remains unchanged. Once again, Ms. Rangel will remain on rest til either Tuesday or , and radiation should resume at that point. We will be undertaking clinical setup of her electron beam boost field at that time as well.
--- NOTE | 2019-06-07 13:58 | RADONC ---
RADIATION ONCOLOGY SIMULATION NOTE DATE: 06/07/2019 CHART #: [id number] Ms. Rangel was taken to the linear accelerator today for clinical setup of her electron beam left breast boost field. Setup was accomplished without difficulty or discomfort. Radiation treatment planning is underway and radiation treatments will begin subsequently. An immobilization device was created and will be used throughout the course of this treatment. I was physically present throughout the course of clinical setup simulation.
--- NOTE | 2019-06-19 08:10 | RADONC ---
RADIATION ONCOLOGY DATE: 06/18/2019 CHART NUMBER: [id number] Ms. Cadet is a 63 year old woman carries diagnosis of left breast ca. So far she received 4680 cGy to the left chest wall. She is doing very well. She has no complaints. Last week, she had a syncopal attack, She was evaluated. There is no cause for it on examination. SYSTEMIC REVIEW; She denies fever headache dizziness chills or fatigue. PHYSICAL EXAMINATION There is moderate edema of the skin in the left breast and there is hyperpigmentation in the intramammary area and left axilla. She is using aloe from the plant and also using cornstarch for the intramammary area. ASSESMENT & PLAN Overall, she is doing fine and she is going to start boost after one more treatment. She will continue treatment as planned. MTDD
--- NOTE | 2019-06-26 08:55 | RADONC ---
RADIATION ONCOLOGY PROGRESS NOTE DATE: 06/25/2019 CHART #: [id number] Ms. Rangel is presently at a dose of 5660 cGy to her left breast primary site and is tolerating treatments quite well at this point with no complaints related to radiation therapy. She is having no breast or bone pain. REVIEW OF SYSTEMS: The patient's review of systems is noncontributory. Denies nausea, vomiting, fevers, chills, night sweats, diplopia, headaches, anxiety or depression, anorexia, weight loss, visual disturbances, chest pain, urinary or bowel difficulties, bone pain, or neurological problems. PHYSICAL EXAMINATION: The patient's skin is in good condition with no evidence of moist or dry desquamation. The remainder of her physical exam remains unchanged. Ms. Rangel is tolerating treatments quite well and radiation is scheduled for completion on Tuesday.
[~2019-06-27 07:55] MED LIST changes: +B-12100010 PO; +OMEG10002 PO; +VITA500079 PO
--- NOTE | 2019-06-28 10:45 | RADONC ---
RADIATION ONCOLOGY TREATMENT SUMMARY: DATE: 06/26/2019 CHART NUMBER: [id number] DIAGNOSIS: Left breast cancer. STAGE: I A, T1a, N0, M0, well-differentiated grade 1, ER positive, AK positive, HER2/lisha negative. ECOG PERFORMANCE STATUS: 0 Ms. Rangel is a delightful 63-year-old white female with the diagnosis what appears to be a stage I A, T1a, N0, M0 well-differentiated infiltrating ductal carcinoma of the left breast which is ER positive, AK positive and HER2/lisha negative, for consideration of postoperative radiation therapy for conservative breast management. We treated the patient to the left breast for a total dose of 4860 cGy delivered in 27 fractions of 180 cGy each over 50 elapsed days from 04/30/2019 through 06/19/2019. The patient's left breast was treated on a linear accelerator utilizing a combination of 6X and 10X photon beams utilizing a 3D conformal technique with medial and lateral tangential hankins. Following completion of 4860 cGy of the entire left breast, the primary site was boosted for an additional 1200 cGy delivered in 6 fractions of 200 cGy each over 7 elapsed days from 06/20/2019 to 06/27/2019. The primary site boost was treated on the linear accelerator utilizing a 12 MEV electron beam prescribed to the 90% isodose line via en face technique. This brought the primary site to a total dose of 6060 cGy delivered in 33 fractions over 57 elapsed days from 04/30/2019 through 06/27/2019. Ms. Rangel tolerated her treatments fairly well but she did require short treatment break secondary to skin reaction. She was then able to complete therapy as prescribed. I have scheduled the patient to see me again in 1 month for further followup. She will also continue to be followed by her other physicians as well. Thank you for allowing us to participate in the care of this very pleasant woman. If I could be of any further assistance or provide you any information, please free to contact me anytime. As always warm regards, cc: MD Анна Cartagena NP Kara Kort, MD
== END 2019-06-30 ==
LOC: M ONCR 07:55
PROVIDERS: ATTEND Radiology Radiation Oncology
DX: C50.312 Malignant neoplasm of lower-inner quadrant of left female breast (principal)

== ENCOUNTER → 2019-10-30 | Outpatient (CLI) | payer OTHER ==
[~2019-10-30] MED LIST changes: +FISH OIL TRIPLE1 CA1 PO; -FISH1CAP23 PO
[2019-10-30 11:57] LABS: BASO % 0.5 % (0.0-1.0); EOS # 0.1 10^3/uL (0.0-0.5); EOS % 2.4 % (0.0-3.0); HEMATOCRIT 43.5 % (36.0-47.0); HEMOGLOBIN 13.9 g/dl (12.0-15.5); LYMPH # 1.3 10^3/uL (1.5-5.0); LYMPH % 29.8 % (24.0-44.0); MEAN CORPUSCULAR HEMOGLOBIN 30.9 pg (27.0-33.0); MEAN CORPUSCULAR VOLUME 96.7 fl (80.0-96.0); MONO # 0.4 10^3/uL (0.0-0.8); MONO % 10.2 % (0.0-5.0); NEUTROPHILS # 2.4 10^3/uL (1.5-8.5); NEUTROPHILS % 56.9 % (36.0-66.0); PLATELET COUNT, AUTOMATED 217 10^3/uL (150-450); WHITE BLOOD COUNT 4.2 10^3/uL (4.0-10.0)
[2019-10-30 12:52] LABS: ALBUMIN 3.2 GM/DL (3.2-5.2); ALT/SGPT 22 U/L (12-78); BILIRUBIN,TOTAL 0.4 MG/DL (0.2-1.0); BLOOD UREA NITROGEN 15 MG/DL (7-18); CARBON DIOXIDE LEVEL 29 MEQ/L (21-32); CHLORIDE LEVEL 106 MEQ/L (98-107); CREATININE FOR GFR 0.89 MG/DL (0.55-1.30); GLOMERULAR FILTRATION RATE > 60.0 (>45); GLUCOSE, FASTING 94 MG/DL (70-100); POTASSIUM SERUM 4.5 MEQ/L (3.5-5.1); SODIUM LEVEL 138 MEQ/L (136-145)
== END ==
LOC: M PLALAB 09:39
PROVIDERS: ATTEND Internal Medicine Hematology
DX: C50.919 Malignant neoplasm of unspecified site of unspecified female breast (principal)

== ENCOUNTER → 2020-02-07 | Outpatient (REF) | payer OTHER ==
[2020-02-07 17:08] LABS: C REACTIVE PROTEIN QUANTITATIV < 0.30 MG/DL (0.00-0.30); RHEUMATOID FACTOR QUANT < 10.0 IU/ML (<15.0)
[2020-02-09 13:11] LABS: ANTINUCLEAR ANTIBODIES DIRECT Negative (Negative)
== END ==
LOC: M LAB REF 16:15
PROVIDERS: ATTEND Internal Medicine
DX: M25.50 Pain in unspecified joint (principal)

== ENCOUNTER → 2020-03-08 | Outpatient (CLI) | payer OTHER ==
[~2020-03-08] MED LIST changes: +CBD OIL TOP; +VITA1CAP25 PO
== END ==
LOC: M LABSMTC 10:41
PROVIDERS: ATTEND Orthopaedic Surgery
DX: Z01.812 Encounter for preprocedural laboratory examination (principal); Z20.828 Contact with and (suspected) exposure to other viral communicable diseases
CPT/HCPCS: C9803; U0003

== ENCOUNTER → 2020-12-09 | Outpatient (REF) | payer OTHER | LOC: M LAB REF 16:14 | PROVIDERS: ATTEND Internal Medicine | DX: R20.2 Paresthesia of skin (principal) ==

== ENCOUNTER → 2020-12-10 | Outpatient (CLI) | payer OTHER ==
--- NOTE | 2020-12-10 15:49 | REP ---
INDICATION: DYSPENA. COMPARISON: None. TECHNIQUE: Two views FINDINGS: The lungs are clear. The heart is not enlarged. There is no failure or PE the mediastinum, pleural surfaces and bony structures are unremarkable. No interval change compared the previous study 06/11/2019. IMPRESSION: No active process. <Electronically signed by Edinson Raymundo > 12/10/20 [id number]
== END ==
LOC: M WUC 15:28
PROVIDERS: ATTEND Internal Medicine
DX: R06.00 Dyspnea, unspecified (principal)

== ENCOUNTER → 2020-12-24 | Outpatient (CLI) | payer OTHER ==
--- NOTE | 2020-12-24 08:43 | REPMRS ---
Patient History The patient states she had a clinical breast exam in 11/2020. Patient is postmenopausal, has history of cancer in the left breast at age 63, had previous chest radiation therapy at age 63, and had first child at age 33. Family history of colorectal cancer at age 75 in paternal grandmother. Malignant stereotactic core biopsy of the left breast, December 28, 2018. Took hormonal contraceptives for 4 years. Taking tamoxifen for 2 years. Patient states no breast complaints today. Patient has signed MRS History Sheet. Digital Woman Screen Mammo: December 24, 2020 - Exam #: [id number] Bilateral CC and MLO view(s) were taken. Technologist: Chantel Ny, Technologist Prior study comparison: December 20, 2019, bilateral digital mammo screening bilat, performed at [facility]. December 18, 2018, bilateral digital mammo screening bilat, performed at [facility]. December 11, 2017, bilateral digital mammo screening bilat, performed at [facility]. FINDINGS: There are scattered fibroglandular densities. The Volpara volumetric breast density category is:B. Post treatment dermal thickening and stromal thickening have improved. There has been no change in the appearance of the mammogram from the prior studies. There is a mild amount of scattered fibroglandular density which is fairly symmetric. There is no interval development of dominant mass, architectural distortion, or grouped microcalcification suggestive of malignancy. 3-D tomosynthesis shows no additional findings. Assessment: BI-RADS/ACR category 2 mammogram. Benign Findings. Recommendation Routine screening mammogram of both breasts in 1 year (for women over age 40). This mammogram was interpreted with the aid of an FDA-approved computer-aided dectection system. Electronically Signed By: Dimitri Miguel MD 12/24/20 0843
== END ==
LOC: M WHC 07:12
PROVIDERS: ATTEND Internal Medicine Hematology & Oncology
DX: Z12.31 Encounter for screening mammogram for malignant neoplasm of breast (principal); Z85.3 Personal history of malignant neoplasm of breast; Z92.3 Personal history of irradiation; Z80.0 Family history of malignant neoplasm of digestive organs

== ENCOUNTER → 2020-12-24 | Outpatient (CLI) | payer OTHER ==
--- NOTE | 2020-12-24 08:57 | DEXAMM ---
INDICATION: M85.80 [facility] OF BONE DENSITY AND STRUCTURE. COMPARISON: December 18, 2018 and November 11, 2006. Comparison study TECHNIQUE: Bone density was measured using dual-energy x-ray absorptionmetry (DEXA). FINDINGS: AP SPINE L1-L4 BMD 1.102 g/cm2 Young Adult T-Score -0.7 Age Matched Z-Score 0.9. LT FEMUR, TOTAL BMD 0.911 g/cm2 Young Adult T-Score -0.8 Age Matched Z-Score 0.5. LT NECK BMD 0.845 g/cm2 Young Adult T-Score -1.4 Age Matched Z-Score 0.1. RT FEMUR, TOTAL BMD 0.890 g/cm2 Young Adult T-Score -0.9 Age Matched Z-Score 0.3. RT NECK BMD 0.836 g/cm2 Young Adult T-Score -1.5 Age Matched Z-Score 0.1. IMPRESSION: There is normal bone density of the spine. There is low bone density of the left hip. There is low bone density of the right hip. The density of the spine has decreased 3.9% since the initial exam on November 14, 2006. The density of the spine decreased 4.1% since most recent exam on December 18, 2018. The density of the left hip has decreased 11.8% since initial exam on November 14, 2006. The density of the left hip has increased 0.9% since most recent exam on December 18, 2018. The density of the right hip has decreased 12.5% since the initial exam on November 14, 2006. The density of the right hip has increased 2.9% since the most recent exam on December 18, 2018. FOLLOW-UP: Recommendation for the next bone density exam: 2 years. <Electronically signed by Dimitri Miguel > 12/24/20 0830
== END ==
LOC: M WHC 07:22
PROVIDERS: ATTEND Internal Medicine
DX: M85.852 Other specified disorders of bone density and structure, left thigh (principal); M85.851 Other specified disorders of bone density and structure, right thigh

== ENCOUNTER → 2021-01-17 | Outpatient (CLI) | payer OTHER ==
[2021-01-17 10:51] LABS: ALBUMIN 3.3 GM/DL (3.2-5.2); ALT/SGPT 19 U/L (12-78); BILIRUBIN,TOTAL 0.6 MG/DL (0.2-1.0); BLOOD UREA NITROGEN 19 MG/DL (7-18); CALCIUM LEVEL 8.7 MG/DL (8.8-10.2); CARBON DIOXIDE LEVEL 29 MEQ/L (21-32); CHLORIDE LEVEL 106 MEQ/L (98-107); CHOLESTEROL LEVEL 192 MG/DL (<200); CHOLESTEROL RISK RATIO 2.285 (<5); CREATININE FOR GFR 0.89 MG/DL (0.55-1.30); GLOMERULAR FILTRATION RATE > 60.0 (>45); GLUCOSE, FASTING 86 MG/DL (70-100); HDL CHOLESTEROL 84 MG/DL (>40); LDL CHOLESTEROL 91 MG/DL (<100); NON-HDL-C 108 MG/DL; POTASSIUM SERUM 4.4 MEQ/L (3.5-5.1); SODIUM LEVEL 141 MEQ/L (136-145); TOTAL PROTEIN 5.9 GM/DL (6.4-8.2); TRIGLYCERIDES LEVEL 84 MG/DL (<150)
== END ==
LOC: M LAB 08:43
PROVIDERS: ATTEND Internal Medicine
DX: E78.00 Pure hypercholesterolemia, unspecified (principal)

== ENCOUNTER 2021-04-02 15:54 | Observation (INO) | payer OTHER ==
[~2021-04-02] VITALS: Ht 170.2 cm; Wt 79.5 kg
--- OUTSIDE RECORDS SUMMARY | 2021-04-02 15:59 | CCD | Continuity of Care Document ---
Author Author Fiordaliza Greene M.D. Organization Unknown Address [phone] [address] Phone [phone] Care Team Providers Care Director Volunteer Services Name Role Phone Milad Carsonllmark [employer] AUTM [phone] Problems Active Problems Provider Date Osteopenia Danielle Greene M.D. Onset: 7 Elevated blood-pressure reading without diagnosis of h ypertension Dominique Carson, PIPE LINE INSPECTOR Onset: 02/07/2020 Pure hypercholesterolemia Dominique Carson, PIPE LINE INSPECTOR Onset: 020 Vitamin D deficiency Dominique Sarabiara, PIPE LINE INSPECTOR Onset: 02/07/2020 Overweight Dominique Carson, PIPE LINE INSPECTOR Onset: 02/07/2020 Malignant neoplasm of lower-inner quadrant of female breast Анна Hauser,PIPE LINE INSPECTOR Onset: 02/07/2020 Social History Type Date Description Comments Sex Unknown ETOH Use Occasionally consumes wine ETOH Use Denies alcohol use 12/10/20 Tobacco Use Start: Unknown Patient has never smoked Allergies, Adverse Reactions, Alerts Active Allergies Criticality Reaction | Severity Comments Date Sulfa Unable to assess criticality RASH 11/10/2010 Tomatoes Unable to assess criticality 12/10/2019 Papaya Extract Unable to assess criticality 12/10/2019 Cashews Unable to assess criticality 12/10/2019 Atorvastatin Unable to assess criticality myalgias 02/07/2020 Pistachios Unable to assess criticality Facial swelling, Hives 12/10/2020 Medications Active Medications SIG Qnty Indications Ordering Provide r Date Citalopram Hydrobromide 20mg Table ts take 1 by mouth every day 90tabs Danielle Greene M.D. 03/2021 Rosuvastatin Calcium 5mg Tablets 1 by mouth every day 90tabs Danielle Greene M.D. 12/11/19 21 Kelp 100mg Tablets 550mg a da y Danielle Greene M.D. 12/10/2020 Co Q 10 100mg Capsules 1 by mouth every day Danielle Greene M.D. 12/11/19 21 CBD Cream apply to areas of pain as needed [facility] 12/18/2018 Vitamin D Tablets more in winter than summer Анна Hauser FNP 12/09/2017 Calcium 600+D 600-400 Tablets 2 qd po [facility] 2015 Multivitamins Tablets 1 po q d Анна Hauser FNP 11/10/2010 Fish Oil 1200mg Capsules 2 po qd Анна Hauser FNP 11/10/2010 Vitamin B Complex Capsules 1 qd [facility] 11/10/2010 Anastrozole 1mg Tablets qd Danielle Greene M.D. History Medications Gabapentin 100mg Capsules 1-2 po qhs 30caps Danielle Greene M.D. 12/10/2020 - Medications Administered in Office Medication SIG Qnty Indications Ordering Provider Date Immunization Adminstration,1 Vaccine/Tox oid Injection Danielle Greene M.D. 11/30 Immunizations CPT Code Status Date Vaccine Lot # [id number] Given 12/30/2020 Influenza,Unspecified [id number] Given 12/10/2020 Adacel- Tetanus Diphtheria P ertussis [id number] U-Flu Given 12/18/2018 Influenza,Unspecified 32847 Given 11/10/2010 Adacel- Tetanus Diphtheria P ertussis [id number] Vital Signs Date Vital Result Comment 01/26/2021 1:33pm BP Systolic 112 mmHg RT Arm BP Diastolic 68 mmHg RT Arm Heart Rate 80 /min Height 66.75 inches 5'6.75" Weight 182.00 lb BMI (Body Mass Index) 28.7 kg/m2 12/10/2020 10:25am BP Systolic 132 mmHg RT Arm BP Diastolic 90 mmHg RT Arm Heart Rate 76 /min Height 66.75 inches 5'6.75" Weight 184.38 lb O2 Saturation Level with Exercise 95 % RM Air BMI (Body Mass Index) 29.1 kg/m2 Results Test Acquired Date Facility Test Result H/L Range Note CMP W/Egfr 01/17/2021 [facility] [address] [place] [address] [phone] Glucose, Fasting 86 mg/dL Normal 70-100 Blood Urea Nitrogen 19 mg/dL High 7-18 Creatinine For GFR 0.89 mg/dL Normal 0.55-1.30 Glomerular Filtration Rate > 60.0 Normal >45 1 Sodium Level 141 mEq/L Normal 136-145 Potassium Serum 4.4 mEq/L Normal 3.5-5.1 Chloride Level 106 mEq/L Normal 98-107 Carbon Dioxide Level 29 mEq/L Normal 21-32 Anion Gap 6 mEq/L Low 8-16 Calcium Level 8.7 mg/dL Low 8.8-10.2 Ast/Sgot 20 U/L Normal 7-37 Alt/SGPT 19 U/L Normal 12-78 Alkaline Phosphatase 49 U/L Normal 45-117 Bilirubin,Total 0.6 mg/dL Normal 0.2-1.0 Total Protein 5.9 GM/DL Low 6.4-8.2 Albumin 3.3 GM/DL Normal 3.2-5.2 Albumin/Globulin Ratio 1.3 Normal 1.2-2.2 Lipid Profile 01/17/[address] [address] [phone] Triglycerides Level 84 mg/dL Normal <150 Cholesterol Level 192 mg/dL Normal <200 HDL Cholesterol 84 mg/dL Normal >40 LDL Cholesterol 91 mg/dL Normal <100 Non-HDL-C 108 mg/dL Normal Cholesterol Risk Ratio 2.285 Normal <5 Laboratory test finding 12/25/2020 [place] [facility] demetrio lockhart Financial Operations Analyst: [place] [address] [phone] Fecal Immunochemical Test NEGATIVE Negati ve Laboratory test finding 12/09/2020 [place] [facility] demetrio lockhart Financial Operations Analyst: [place] [address] [phone] Vitamin D 25-Hydroxy 59.7 ng/ml 24.0 - 80.0 2 Complete Blood Count 12/09/2020 [facility] Financial Operations Analyst: [place] [address] [phone] WBC 4.2 x10*3/UL 4.1 - 10.9 RBC 4.76 x10*6/UL 4.20 - 6.30 Hemoglobin 14.8 g/dL 12.0 - 18.0 Hematocrit 43.7 % 37.0 - 51.0 MCV 91.8 fL 80.0 - 97.0 MCH 31.1 pg 26.0 - 32.0 MCHC 33.9 g/dL 31.0 - 38.0 RDW 12.8 % 11.6 - 13.7 PLT 240 x10*3/UL 140 - 440 MPV 7.7 FL Low 7.8 - 11.0 Lymph % 33.6 % 10.0 - 58.5 Mid % 7.0 % 1.7 - 9.3 Neut % 59.4 % 37.0 - 92.0 Lymph # 1.4 x10*3/UL 0.6 - 4.1 Mid # 0.3 x10*3/UL 0.1 - 0.6 Neut # 2.5 x10*3/UL 2.0 - 7.8 Basic Metabolic Panel 12/09/2020 [facility] Financial Operations Analyst: [place] [address] [phone] Glucose 89 mg/dL 74 - 99 3 BUN 20 mg/dL High 7 - 18 Creatinine 1.0 mg/dL 0.6 - 1.3 Sodium 142 mEq/L 136 - 145 Potassium 4.1 mEq/L 3.5 - 5.1 Chloride 104 mEq/L 98 - 107 Carbon Dioxide 29 mEq/L 21 - 32 Calcium 9.6 mg/dL 8.5 - 10.1 GFR 55 mL/min Low >60 GFR >= 60 mL/min >60 4 Lipid Profile 12/09/2020 [facility] Financial Operations Analyst: [place] [address] [phone] Cholesterol 282 mg/dL High 131 - 200 Triglycerides 101 mg/dL 30 - 150 HDL Cholesterol 76 mg/dL High 35 - 60 LDL (Calculated) 186 CALC High 50 - 159 Laboratory test finding 12/09/2020 [place] [facility] demetrio lockhart Financial Operations Analyst: [place] [address] [phone] Thyroid Stimulating Hormone 1.34 uIU/mL 0.3 6 - 3.74 Laboratory test finding 12/09/2020 [place] [facility] demetrio lockhart Financial Operations Analyst: [place] [address] [phone] Magnesium 2.3 mg/dL 1.8 - 2.4 Laboratory test finding 12/09/2020 [facility] [address] [place], [place] [address] [phone] Vitamin B12 Level 1003 pg/mL High 247-911 5 1 Units are mL/min/1.73 m2 Chronic Kidney Disease Staging per NKF: Stage I & II GFR >=60 Normal to Mildly Decreased Stage III GFR 30-59 Moderately Decreased Stage IV GFR 15-29 Severely Decreased Stage V GFR <15 Very Little GFR Left ESRD GFR <15 on EVP BUSINESS DEVELOPMENT 2 This test was performed V[employer]ight Vitamin D immunoassay kit. Values obtained with different assay methods should not be used interchangeably. 3 100-125 mg/dL PRE-DIABET ES/FASTING >126 mg/dL DIABETES/FASTING 4 CHRONIC KIDNEY DISEASE STAGI NG PER NKF STAGE I & II GFR >= 60 NORMAL TO MILDLY DECREASED STAGE III GFR 30-59 MODERATELY DECREASED STAGE IV GFR 15-29 SEVERELY DECREASED STAGE V GFR <15 VERY LITTLE GFR LEFT ESRD GFR <15 ON EVP BUSINESS DEVELOPMENT 5 VITAMIN B12 NORMAL RANGE NORMAL 247 - 911 PG/ML INDETERMINATE 211 - 246 PG/ML DEFICIENT LESS THAN 211 PG/ML Procedures Date Code Description Status 12/24/2020 [id number] Mammogram Completed 12/24/2020 [id number] Bone Mineral Density Test Comple popeye 12/10/2020 19196 Brief Emotional/Beha v Assessment W/ Scoring Doc Per Standard Inst Completed 12/10/2020 52293 Est Prevent Med (65Yrs&Ovr) Comp leted 12/10/2020 11931 EKG/Interpretation & Report Comp leted 12/20/2019 [id number] Mammogram Completed 12/28/2018 [id number] Mammogram Completed 12/26/2018 [id number] Mammogram Completed 12/18/2018 [id number] Bone Mineral Density Test Comple popeye 12/18/2018 [id number] Mammogram Completed 12/12/2017 [id number] Mammogram Completed 12/09/2016 [id number] Bone Mineral Density Test Comple popeye 12/09/2016 [id number] Mammogram Completed 12/09/2015 [id number] Mammogram Completed 12/06/2014 [id number] Mammogram Completed 12/05/2013 [id number] Bone Mineral Density Test Comple popeye 12/05/2013 [id number] Mammogram Completed 12/04/2012 [id number] Mammogram Completed 12/02/2011 [id number] Mammogram Completed 11/30/2010 [id number] Mammogram Completed 11/27/2008 [id number] Mammogram Completed 11/27/2008 [id number] Bone Mineral Density Test Comple popeye 11/27/2007 [id number] Mammogram Completed 11/14/2006 [id number] Mammogram Completed Medical Devices Description No Information Available Encounters Type Date Location Provider Dx Diagnosis Office Visit 12/10/2020 10:30a [facility] Maykel Greene M.D. Z00.00 Encntr for general adult med ical exam w/o abnormal findings E16.2 Hypoglycemia, unspecified R06.00 Dyspnea, unspecified E78.00 Pure hypercholesterolemia, u nspecified G62.9 Polyneuropathy, unspecified F32.89 Other specified depressive e pisodes Z68.29 Body mass index [BMI] 29.0-2 9.9, adult E66.09 Other obesity due to excess calories C50.312 Malig neoplasm of lower-inne r quadrant of left female breast I12.9 Hypertensive chronic kidney disease w stg 1-4/unsp chr kdny N18.31 Chronic kidney disease, stag e 3a Z23 Encounter for immunization M85.80 Oth disrd of bone density an d structure, unspecified site Assessments Date Code Description Provider 12/25/2020 Z12.12 Encounter for screening for guru gnant neoplasm of rectum Dominique Carson, MADY 12/10/2020 Z00.00 Encounter for genera l adult medical examination without abnormal findings Danielle Greene M.D. 12/10/2020 E16.2 Hypoglycemia, unspecified Danielle Greene M.D. 12/10/2020 R06.00 Dyspnea, unspecified Danielle Arcos M.D. 12/10/2020 E78.00 Pure hypercholesterolemia, unspe cified Danielle Greene M.D. 12/10/2020 G62.9 Polyneuropathy, unspecified Yulissa Greene M.D. 12/10/2020 F32.89 Other specified depressive episo bjorn Danielle Greene M.D. 12/10/2020 Z68.29 Body mass index [BMI] 29.0-29.9, adult Danielle Greene M.D. 12/10/2020 E66.09 Other obesity due to excess jeff carrie Danielle Greene M.D. 12/10/2020 C50.312 Malignant neoplasm o f lower-inner quadrant of left female breast Danielle Greene M.D. 12/10/2020 I12.9 Hypertensive chronic kidney disease with stage 1 through stage 4 chronic kidney disease, or unspecified chronic kidney disease Danielle Greene M.D. 12/10/2020 N18.31 Chronic kidney disease, stage 3a Danielle Greene M.D. 12/10/2020 Z23 Encounter for immunization Danielle Greene M.D. 12/10/2020 M85.80 Other specified diso rders of bone density and structure, unspecified site Danielle Greene M.D. 12/09/2020 E78.00 Pure hypercholesterolemia, unspe cified Danielle Greene M.D. 12/09/2020 E78.00 Pure hypercholesterolemia, unspe cified Lab Schedule 12/09/2020 R20.2 Paresthesia of skin Danielle singer M.D. 12/09/2020 R20.2 Paresthesia of skin Lab Schedule 12/09/2020 E16.2 Hypoglycemia, unspecified Danielle Greene M.D. 12/09/2020 E16.2 Hypoglycemia, unspecified Lab Sc hedule 12/09/2020 E55.9 Vitamin D deficiency, unspecifie d Danielle Greene M.D. 12/09/2020 E55.9 Vitamin D deficiency, unspecifie d Lab Schedule Plan of Treatment Future Appointment(s):* 12/16/2021 8:00 am - Danielle Greene M.D. at [facility] Functional Status Description No Information Available Mental Status Description No Information Available Referrals Refer to Dr Reason for Referral Status Appt Date [facility] EXERCISE NUCLEAR STRESS TEST DX: DYSPNEA ON EXERTION NO PRIOR AUTH REQ PER MARITZA Navarrete AT [facility] Created [address] Peters [address] [place] [id number] [phone]
--- OUTSIDE RECORDS SUMMARY | 2021-04-02 15:59 | CCD | Continuity of Care Document ---
Author Author Lab Schedule, Fiordaliza Organization Unknown Address [address] [address] Phone Unavailable Care Team Providers Care Container Filler Name Role Phone Dominique Carson AUTM [phone] Problems Active Problems Provider Date Osteopenia Danielle Greene M.D. Onset: 7 Elevated blood-pressure reading without diagnosis of h ypertension Dominique Yamileth, KINDERGARTEN PREP TEACHER Onset: 02/07/2020 Pure hypercholesterolemia Dominique Yamileth, KINDERGARTEN PREP TEACHER Onset: 020 Vitamin D deficiency Dominique Yamileth, KINDERGARTEN PREP TEACHER Onset: 02/07/2020 Overweight Dominique Carson, KINDERGARTEN PREP TEACHER Onset: 02/07/2020 Malignant neoplasm of lower-inner quadrant of female breast Анна Hauser FNP Onset: 02/07/2020 Social History Type Date Description [...] r Date Citalopram Hydrobromide 20mg Table ts Take 1/2-1 By Mouth Every Day 90tabs Danielle Greene M.D. 12/10/2020 Gabapentin 100mg Capsules 1-2 po qhs 30caps Danielle Greene M.D. 12/10/2020 Rosuvastatin Calcium 5mg Tablets 1 by mouth every day 30tabs Danielle Greene M.D. 12/11/19 21 Kelp 100mg Tablets 550mg a da y Danielle Greene M.D. 12/10/2020 Co Q 10 100mg Capsules 1 by mouth every day Danielle Greene M.D. 12/11/19 21 CBD Cream apply to areas of pain as needed [facility] 12/18/2018 Vitamin D Tablets more in winter than summer [facility] 12/09/2017 Calcium 600+D 600-400 Tablets 2 qd po [facility] 2015 Multivitamins Tablets 1 po q d [facility] 11/10/2010 Fish Oil 1200mg Capsules 2 po qd [facility] 11/10/2010 Vitamin B Complex Capsules 1 qd [facility] 11/10/2010 Anastrozole 1mg Tablets qd Danielle Greene M.D. Medications Administered in Office Medication SIG Qnty Indications Ordering Provider Date Immunization Adminstration,1 Vaccine/Tox oid Injection Danielle Greene M.D. 11/30 Immunizations CPT Code Status Date Vaccine Lot # [id number] Given 12/10/2020 Adacel- Tetanus Diphtheria P ertussis (Age64 & Under) [id number] U-Flu Given 12/18/2018 Influenza,Unspecified 67927 Given 11/10/2010 Adacel- Tetanus Diphtheria P ertussis (Age64 & Under) [id number] Vital Signs Date Vital Result Comment 12/10/2020 10:25am BP Systolic 132 mmHg RT Arm BP Diastolic 90 mmHg RT Arm Heart Rate 76 /min Height 66.75 inches 5'6.75" Weight 184.38 lb O2 Saturation Level with Exercise 95 % RM Air BMI (Body Mass Index) 29.1 kg/m2 04/23/2020 1:59pm BP Systolic 128 mmHg LT Arm BP Diastolic 86 mmHg LT Arm Heart Rate 88 /min Height 66.75 inches 5'6.75" Weight 187.50 lb BMI (Body Mass Index) 29.6 kg/m2 Results Test Acquired Date Facility Test Result H/L Range Note Laboratory test finding 12/25/2020 [facility] Advisor demetrio lockhart Potato Seed Cutter: Dr Lisandro [place] [id number] [phone] Fecal Immunochemical Test NEGATIVE Negati ve Laboratory test finding 12/09/2020 [facility] Advisor demetrio lockhart Potato Seed Cutter: [place] [address] [phone] Vitamin D 25-Hydroxy 59.7 ng/ml 24.0 - 80.0 1 Complete Blood Count 12/09/2020 [facility] [facility] demetrio laguna Potato Seed Cutter: [place] [address] [phone] WBC 4.2 x10*3/UL 4.1 - 10.9 RBC [...] 2.0 - 7.8 Basic Metabolic Panel 12/09/2020 [facility] Potato Seed Cutter: [place] [address] [phone] Glucose 89 mg/dL 74 - 99 2 BUN 20 mg/dL High 7 - 18 Creatinine 1.0 mg/dL 0.6 - 1.3 Sodium 142 mEq/L 136 - 145 Potassium 4.1 mEq/L 3.5 - 5.1 Chloride 104 mEq/L 98 - 107 Carbon Dioxide 29 mEq/L 21 - 32 Calcium 9.6 mg/dL 8.5 - 10.1 GFR 55 mL/min Low >60 GFR >= 60 mL/min >60 3 Lipid Profile 12/09/2020 [facility] Potato Seed Cutter: Dr Lisandro Sanchez [place], [place] [id number] [phone] Cholesterol 282 mg/dL High 131 - 200 Triglycerides 101 mg/dL 30 - 150 HDL Cholesterol 76 mg/dL High 35 - 60 LDL (Calculated) 186 CALC High 50 - 159 Laboratory test finding 12/09/2020 [facility] Advisor demetrio lockhart Potato Seed Cutter: Dr Lisandro Sanchez [place], [place] [id number] [phone] Thyroid Stimulating Hormone 1.34 uIU/mL 0.3 6 - 3.74 Laboratory test finding 12/09/2020 [facility] Advisor demetrio lockhart Potato Seed Cutter: Dr Lisandro Sanchez [place], [place] [id number] [phone] Magnesium 2.3 mg/dL 1.8 - 2.4 Laboratory test finding 12/09/2020 [facility] [address] [place], [place] [address] [phone] Vitamin B12 Level 1003 pg/mL High 247-911 4 1 This test was performed usin [employer] IP Vitamin D immunoassay kit. Values obtained with different assay methods should not be used interchangeably. 2 100-125 mg/dL PRE-DIABET ES/FASTING >126 mg/dL DIABETES/FASTING 3 CHRONIC KIDNEY DISEASE STAGI NG PER NKF STAGE I & II GFR >= 60 NORMAL TO MILDLY DECREASED STAGE III GFR 30-59 MODERATELY DECREASED STAGE IV GFR 15-29 SEVERELY DECREASED STAGE V GFR <15 VERY LITTLE GFR LEFT ESRD GFR <15 ON PRODUCTION ILLUSTRATOR 4 VITAMIN B12 NORMAL RANGE NORMAL 247 - 911 PG/ML INDETERMINATE 211 - 246 PG/ML DEFICIENT LESS THAN 211 PG/ML Procedures Date Code Description Status 12/24/2020 [id number] Mammogram Completed 12/24/2020 [id number] Bone Mineral Density Test Comple popeye 12/10/2020 29982 Brief Emotional/Beha v Assessment W/ Scoring Doc Per Standard Inst Completed 12/10/2020 02600 Est Prevent Med (65Yrs&Ovr) Comp leted 12/10/2020 16098 EKG/Interpretation & Report Comp leted 12/20/2019 [id number] Mammogram Completed 12/28/2018 [id number] Mammogram Completed 12/26/2018 [id number] Mammogram Completed 12/18/2018 [id number] Bone Mineral Density Test Comple popeye 12/18/2018 [id number] Mammogram Completed 12/12/2017 [id number] Mammogram Completed 12/09/2016 [id number] Bone Mineral Density Test Comple popeye 12/09/2016 [id number] Mammogram Completed 12/09/2015 [id number] Mammogram Completed 12/06/2014 [id number] Mammogram Completed 12/05/2013 [id number] Bone Mineral Density Test Comple popeye 12/05/2013 [id number] Mammogram Completed 12/04/2012 [id number] Mammogram Completed 12/02/2011 [id number] Mammogram Completed 11/30/2010 [id number] Mammogram Completed 11/27/2008 [id number] Mammogram Completed 11/27/2008 [id number] Bone Mineral Density Test Comple popeye 11/27/2007 [id number] Mammogram Completed 11/14/2006 [id number] Mammogram Completed Medical Devices Description No Information Available Encounters Type Date Location Provider Dx Diagnosis Office Visit 12/10/2020 10:30a [facility] Z00.00 Encntr for general adult [...] guru gnant neoplasm of rectum Dominique Carson, KINDERGARTEN PREP TEACHER 12/10/2020 Z00.00 Encounter for genera l adult [...] Greene M.D. 12/09/2020 E78.00 Pure hypercholesterolemia, unspe cijulia Greene M.D. 12/09/2020 E78.00 Pure hypercholesterolemia, unspe cified Lab Schedule 12/09/2020 R20.2 Paresthesia of skin Danielle singer M.D. 12/09/2020 R20.2 Paresthesia of skin Lab Schedule 12/09/2020 E16.2 Hypoglycemia, unspecified Danielle Greene M.D. 12/09/2020 E16.2 Hypoglycemia, unspecified Lab Sc hedule 12/09/2020 E55.9 Vitamin D deficiency, unspecifie d Danielle Greene M.D. 12/09/2020 E55.9 Vitamin D deficiency, unspecifie d Lab Schedule Plan of Treatment Future Appointment(s):* 01/26/2021 1:30 pm - Danielle Greene M.D. at [facility] * 12/16/2021 8:00 am - [facility] 12/10/2020 - Danielle Greene M.D.* Z00.00 Encounter for general adult medical examination without abnormal findings * E16.2 Hypoglycemia, unspecified * R06.00 Dyspnea, unspecified * E78.00 Pure hypercholesterolemia, unspecified* New Labs:* Lipid Panel, Scheduled: 12/07/21 * CPK Creatine Phosphokinase, Scheduled: 12/07/21 * Comprehensive Metabolic Profil, Scheduled: 12/07/21 * G62.9 Polyneuropathy, unspecified * F32.89 Other specified depressive episodes * Z68.29 Body mass index [BMI] 29.0-29.9, adult * E66.09 Other obesity due to excess calories * C50.312 Malignant neoplasm of lower-inner quadrant of left female breast * I12.9 Hypertensive chronic kidney disease with stage 1 through stage 4 chronic kidney disease, or unspecified chronic kidney disease * N18.31 Chronic kidney disease, stage 3a * Z23 Encounter for immunization * M85.80 Other specified disorders of bone density and structure, unspecified site * All * New Medication:* Citalopram Hydrobromide 20 mg - Take 1/2-1 By Mouth Every Day * Gabapentin 100 mg - 1-2 po qhs * Rosuvastatin Calcium 5 mg - 1 by mouth every day * Kelp 100 mg - 550mg a day * Co Q 10 100 mg - 1 by mouth every day * Comments:* 12. Health maintenance. Due for bone density. Up to date with mammograms because of her h/o breast cancer. Due for FIT cards for colon cancer screening. Vaccines are recommended. She believes she had the Pneumovax last year, will try to get record for us. Adacel boostered today. She's had the shingles shots. She's had the COVID and she gets an annual flu shot. Diet/exercise, calcium, BSE reviewed. Functional Status Description No Information Available Mental Status Description No Information Available Referrals Refer to Dr Reason for Referral Status Appt Date [facility] EXERCISE NUCLEAR STRESS TEST DX: DYSPNEA ON EXERTION NO PRIOR AUTH REQ PER MARITZA Navarrete AT [facility] Created [address] Peters [address] [place] [address] [phone]
--- OUTSIDE RECORDS SUMMARY | 2021-04-02 15:59 | CCD | Continuity of Care Document ---
Author Author Fiordaliza Greene M.D. Organization Unknown Address [address] [address] Phone [phone] Care Team Providers Care Coat Padder Name Role Phone Milad Carsonllmark COATESP AUTM [phone] Problems Active Problems Provider Date Osteopenia Danielle Greene M.D. Onset: 7 Elevated blood-pressure reading without diagnosis of h ypertension Dominique Carson, COLD ROLL PACKER SHEET IRON Onset: 02/07/2020 Pure hypercholesterolemia Dominique Carson, COLD ROLL PACKER SHEET IRON Onset: 020 Vitamin D deficiency Dominique Sarabiara, COLD ROLL PACKER SHEET IRON Onset: 02/07/2020 Overweight Dominique Carson, COLD ROLL PACKER SHEET IRON Onset: 02/07/2020 Malignant neoplasm of lower-inner quadrant of female breast Анна Hauser,COLD ROLL PACKER SHEET IRON Onset: 02/07/2020 Social History Type Date Description [...] to areas of pain as needed Анна Hilliard FNP 12/18/2018 Vitamin D Tablets more in winter than summer Анна Hauser FNP 12/09/2017 Calcium 600+D 600-400 Tablets 2 qd po Анна Hauser FNP 2015 Multivitamins Tablets 1 po q d Анна Hauser FNP 11/10/2010 Fish Oil 1200mg Capsules 2 po qd Анна Hauser FNP 11/10/2010 Vitamin B Complex Capsules 1 qd Анна Hauser FNP 11/10/2010 Anastrozole 1mg Tablets qd Danielle Greene M.D. Medications Administered in Office Medication SIG Qnty Indications Ordering Provider Date Immunization Adminstration,1 Vaccine/Tox oid Injection Danielle Greene M.D. 11/30 Immunizations CPT Code Status Date Vaccine Lot # [id number] Given 12/10/2020 Adacel- Tetanus Diphtheria P ertussis [id number] U-Flu Given 12/18/2018 Influenza,Unspecified [id number] Given 11/10/2010 Adacel- Tetanus Diphtheria P ertussis [id number] Vital Signs Date Vital Result Comment 12/10/2020 [...] Result H/L Range Note CMP W/Egfr 01/17/[address] [address] [phone] Glucose, Fasting 86 mg/dL Normal 70-100 Blood [...] Ratio 1.3 Normal 1.2-2.2 Lipid Profile 01/17/[address] [address] [phone] Triglycerides Level 84 mg/dL Normal <150 Cholesterol Level 192 mg/dL Normal <200 HDL Cholesterol 84 mg/dL Normal >40 LDL Cholesterol 91 mg/dL Normal <100 Non-HDL-C 108 mg/dL Normal Cholesterol Risk Ratio 2.285 Normal <5 Laboratory test finding 12/25/2020 [facility] [employer] demetrio lockhart Cash Processing Specialist: [place] [address] [phone] Fecal Immunochemical Test NEGATIVE Negati ve Laboratory test finding 12/09/2020 [facility] [employer] [facility]et[employer] lockhart Cash Processing Specialist: [place] [address] [phone] Vitamin D 25-Hydroxy 59.7 ng/ml 24.0 - 80.0 2 Complete Blood Count 12/09/2020 [facility] Cash Processing Specialist: [place] [address] [phone] WBC 4.2 x10*3/UL 4.1 - 10.9 RBC [...] 2.0 - 7.8 Basic Metabolic Panel 12/09/2020 [facility] Cash Processing Specialist: [place] [address] [phone] Glucose 89 mg/dL 74 - 99 3 [...] 60 mL/min >60 4 Lipid Profile 12/09/2020 [facility] Cash Processing Specialist: [place] [address] [phone] Cholesterol 282 mg/dL High 131 - 200 Triglycerides 101 mg/dL 30 - 150 HDL Cholesterol 76 mg/dL High 35 - 60 LDL (Calculated) 186 CALC High 50 - 159 Laboratory test finding 12/09/2020 [facility] [employer] demetrio lockhart Cash Processing Specialist: [place] [address] [phone] Thyroid Stimulating Hormone 1.34 uIU/mL 0.3 6 - 3.74 Laboratory test finding 12/09/2020 [facility] [employer] demetrio lockhart Cash Processing Specialist: [place] [address] [phone] Magnesium 2.3 mg/dL 1.8 - 2.4 Laboratory test finding 12/09/2020 [facility] [address] [place] [address] [phone] Vitamin B12 Level 1003 pg/mL High 247-911 5 1 Units are mL/min/1.73 m2 Chronic Kidney Disease Staging per NKF: Stage I & II GFR >=60 Normal to Mildly Decreased Stage III GFR 30-59 Moderately Decreased Stage IV GFR 15-29 Severely Decreased Stage V GFR <15 Very Little GFR Left ESRD GFR <15 on AEROSOL SUPERVISOR 2 This test was performed [employer] Vitamin D immunoassay kit. Values obtained with [...] LITTLE GFR LEFT ESRD GFR <15 ON AEROSOL SUPERVISOR 5 VITAMIN B12 NORMAL RANGE NORMAL 247 - 911 PG/ML INDETERMINATE 211 - 246 PG/ML DEFICIENT LESS THAN 211 PG/ML Procedures Date Code Description Status 12/24/2020 [id number] Mammogram Completed 12/24/2020 [id number] Bone Mineral Density Test Comple popeye 12/10/2020 68609 Brief Emotional/Beha v Assessment W/ Scoring Doc Per Standard Inst Completed 12/10/2020 52626 Est Prevent Med (65Yrs&Ovr) Comp leted 12/10/2020 88078 EKG/Interpretation & Report Comp leted 12/20/2019 [id number] Mammogram Completed 12/28/2018 [id number] Mammogram Completed 12/26/2018 [id number] Mammogram Completed 12/18/2018 [id number] Bone Mineral Density Test Comple popeye 12/18/2018 [id number] Mammogram Completed 12/12/2017 [id number] Mammogram Completed 12/09/2016 [id number] Bone Mineral Density Test Comple popeye 12/09/2016 [id number] Mammogram Completed 12/09/2015 [id number] Mammogram Completed 12/06/2014 [id number] Mammogram Completed 12/05/2013 [id number] Bone Mineral Density Test Comple popeye 12/05/2013 [id number] Mammogram Completed 12/04/2012 [id number] Mammogram Completed 12/02/2011 [id number] Mammogram Completed 11/30/2010 [id number] Mammogram Completed 11/27/2008 [id number] Mammogram Completed 11/27/2008 [id number] Bone Mineral Density Test Comple popeye 11/27/2007 [id number] Mammogram Completed 11/14/2006 [id number] Mammogram Completed Medical Devices Description No Information Available Encounters Type Date Location Provider Dx Diagnosis Office Visit 12/10/2020 10:30a [facility] Maykel Greene M.D. Z00.00 Encntr [...] screening for guru gnant neoplasm of rectum MADY Rueda 12/10/2020 Z00.00 Encounter for genera l adult [...] 1:30 pm - Danielle Greene M.D. at [facility] * 12/16/2021 8:00 am - [facility] 12/10/2020 - Danielle Greene [...] Dr Reason for Referral Status Appt Date [facility] EXERCISE NUCLEAR STRESS TEST DX: DYSPNEA ON EXERTION NO PRIOR AUTH REQ PER MARITZA Navarrete AT [facility] Created [address] Peters [address] [place] [address] [phone]
--- OUTSIDE RECORDS SUMMARY | 2021-04-02 15:59 | CCD | Continuity of Care Document ---
Author Author Fiordaliza Greene M.D. Organization Unknown Address [address] [address] Phone [phone] Care Team Providers Care Gas Meter Repairer Name Role Phone Milad Carsonllmark COATESP AUTM [phone] Problems Active Problems Provider Date Osteopenia Danielle Greene M.D. Onset: 7 Elevated blood-pressure reading without diagnosis of h ypertension Dominique Carson, BOOKSTORE MANAGER Onset: 02/07/2020 Pure hypercholesterolemia Dominique Carson, BOOKSTORE MANAGER Onset: 020 Vitamin D deficiency Dominique Sarabiara, BOOKSTORE MANAGER Onset: 02/07/2020 Overweight Dominique Carson, BOOKSTORE MANAGER Onset: 02/07/2020 Malignant neoplasm of lower-inner quadrant of female breast Анна Hauser,BOOKSTORE MANAGER Onset: 02/07/2020 Social History Type Date Description [...] to areas of pain as needed [facility] 12/18/2018 Vitamin D Tablets more in winter than summer Анна Hauser FNP 12/09/2017 Calcium 600+D 600-400 Tablets 2 qd po [facility] 2015 Multivitamins Tablets 1 po q d Анна Hauser FNP 11/10/2010 Fish Oil 1200mg Capsules 2 po qd Анна Hauser FNP 11/10/2010 Vitamin B Complex Capsules 1 qd [facility] 11/10/2010 Anastrozole 1mg Tablets qd Danielle Greene M.D. History Medications Gabapentin 100mg Capsules 1-2 po qhs 30caps Danielle Greene M.D. 12/10/2020 - Medications Administered in Office Medication SIG Qnty Indications Ordering Provider Date Immunization Adminstration,1 Vaccine/Tox oid Injection Danielle Greene M.D. 11/30 Immunizations CPT Code Status Date Vaccine Lot # U-[id number] Given 12/30/2020 Influenza,Unspecified [id number] Given 12/10/2020 Adacel- Tetanus Diphtheria P ertussis [id number] U-Flu Given 12/18/2018 Influenza,Unspecified 10636 Given 11/10/2010 Adacel- Tetanus Diphtheria P ertussis [id number] Vital Signs Date Vital Result Comment 01/26/2021 [...] Result H/L Range Note CMP W/Egfr 01/17/2021 [facility] [address] [place] [address] [phone] Glucose, Fasting 86 mg/dL Normal 70-100 Blood [...] Ratio 1.3 Normal 1.2-2.2 Lipid Profile 01/17/[address] [address] [phone] Triglycerides Level 84 mg/dL Normal <150 Cholesterol Level 192 mg/dL Normal <200 HDL Cholesterol 84 mg/dL Normal >40 LDL Cholesterol 91 mg/dL Normal <100 Non-HDL-C 108 mg/dL Normal Cholesterol Risk Ratio 2.285 Normal <5 Laboratory test finding 12/25/2020 [place] [employer] demetrio lockhart Dog Day Care Attendant: [place] [address] [phone] Fecal Immunochemical Test NEGATIVE Negati ve Laboratory test finding 12/09/2020 [place] [employer] demetrio lockhart Dog Day Care Attendant: [place] [address] [phone] Vitamin D 25-Hydroxy 59.7 ng/ml 24.0 - 80.0 2 Complete Blood Count 12/09/2020 [place] [facility] Dog Day Care Attendant: [place] [address] [phone] WBC 4.2 x10*3/UL 4.1 - 10.9 RBC [...] 2.0 - 7.8 Basic Metabolic Panel 12/09/2020 [facility] Dog Day Care Attendant: [place] [address] [phone] Glucose 89 mg/dL 74 - 99 3 [...] 60 mL/min >60 4 Lipid Profile 12/09/2020 [facility] Dog Day Care Attendant: [place] [address] [phone] Cholesterol 282 mg/dL High 131 - 200 Triglycerides 101 mg/dL 30 - 150 HDL Cholesterol 76 mg/dL High 35 - 60 LDL (Calculated) 186 CALC High 50 - 159 Laboratory test finding 12/09/2020 [place] [employer] demetrio lockhart Dog Day Care Attendant: [place] [address] [phone] Thyroid Stimulating Hormone 1.34 uIU/mL 0.3 6 - 3.74 Laboratory test finding 12/09/2020 [place] [employer] demetrio lockhart Dog Day Care Attendant: [place] [address] [phone] Magnesium 2.3 mg/dL 1.8 - 2.4 Laboratory test finding 12/09/2020 [facility] [address] [place], [place] [address] [phone] Vitamin B12 Level 1003 pg/mL High 247-911 5 1 Units are mL/min/1.73 m2 Chronic Kidney Disease Staging per NKF: Stage I & II GFR >=60 Normal to Mildly Decreased Stage III GFR 30-59 Moderately Decreased Stage IV GFR 15-29 Severely Decreased Stage V GFR <15 Very Little GFR Left ESRD GFR <15 on SCHOOL TRAFFIC SUPERVISOR 2 This test was performed [employer] Vitamin D immunoassay kit. Values obtained with [...] LITTLE GFR LEFT ESRD GFR <15 ON SCHOOL TRAFFIC SUPERVISOR 5 VITAMIN B12 NORMAL RANGE NORMAL 247 - 911 PG/ML INDETERMINATE 211 - 246 PG/ML DEFICIENT LESS THAN 211 PG/ML Procedures Date Code Description Status 01/26/2021 58682 Office/Outpatient Established Mo d MDM 30-39 Min Completed 12/24/2020 [id number] Mammogram Completed 12/24/2020 [id number] Bone Mineral Density Test Comple popeye 12/10/2020 08255 Est Prevent Med (65Yrs&Ovr) Comp leted 12/10/2020 75984 Brief Emotional/Beha v Assessment W/ Scoring Doc Per Standard Inst Completed 12/10/2020 67756 EKG/Interpretation & Report Comp leted 12/20/2019 [id number] Mammogram Completed 12/28/2018 [id number] Mammogram Completed 12/26/2018 [id number] Mammogram Completed 12/18/2018 [id number] Bone Mineral Density Test Comple popeye 12/18/2018 [id number] Mammogram Completed 12/12/2017 [id number] Mammogram Completed 12/09/2016 [id number] Bone Mineral Density Test Comple popeye 12/09/2016 [id number] Mammogram Completed 12/09/2015 [id number] Mammogram Completed 12/06/2014 [id number] Mammogram Completed 12/05/2013 [id number] Bone Mineral Density Test Comple popeye 12/05/2013 [id number] Mammogram Completed 12/04/2012 [id number] Mammogram Completed 12/02/2011 [id number] Mammogram Completed 11/30/2010 [id number] Mammogram Completed 11/27/2008 [id number] Mammogram Completed 11/27/2008 [id number] Bone Mineral Density Test Comple popeye 11/27/2007 [id number] Mammogram Completed 11/14/2006 [id number] Mammogram Completed Medical Devices Description No Information Available Encounters Type Date Location Provider Dx Diagnosis Office Visit 01/26/2021 1:30p [place] [facility] M.D. R06.00 Dyspnea, unspecified E16.2 Hypoglycemia, unspecified E78.00 Pure hypercholesterolemia, u nspecified G62.9 Polyneuropathy, unspecified Z68.28 Body mass index [BMI] 28.0-2 8.9, adult E66.09 Other obesity due to excess calories F32.89 Other specified depressive e pisodes C50.312 Malig neoplasm of lower-inne r quadrant of left female breast M85.80 Oth disrd of bone density an d structure, unspecified site I10 Essential (primary) hyperten nesha Office Visit 12/10/2020 10:30a [place] Intern[facility] lockhart M.D. Z00.00 Encntr for general adult med [...] unspecified site Assessments Date Code Description Provider 01/26/2021 R06.00 Dyspnea, unspecified Danielle Arcos M.D. 01/26/2021 E16.2 Hypoglycemia, unspecified Danielle Greene M.D. 01/26/2021 E78.00 Pure hypercholesterolemia, unspe cified Danielle Greene M.D. 01/26/2021 G62.9 Polyneuropathy, unspecified Yulissa Greene M.D. 01/26/2021 Z68.28 Body mass index [BMI] 28.0-28.9, adult Danielle Greene M.D. 01/26/2021 E66.09 Other obesity due to excess jeff carrie Danielle Greene M.D. 01/26/2021 F32.89 Other specified depressive episo bjorn Danielle Greene M.D. 01/26/2021 C50.312 Malignant neoplasm o f lower-inner quadrant of left female breast Danielle Greene M.D. 01/26/2021 M85.80 Other specified diso rders of bone density and structure, unspecified site Danielle Greene M.D. 01/26/2021 I10 Essential (primary) hypertension Danielle Greene M.D. 12/25/2020 Z12.12 Encounter for screening for guru [...] Lab Schedule Plan of Treatment Future Appointment(s):* 05/18/2021 8:30 am - Danielle Greene M.D. at [facility] * 12/16/2021 8:00 am - Danielle Greene M.D. at [facility] 01/26/2021 - Danielle Greene M.D.* R06.00 Dyspnea, unspecified * E16.2 Hypoglycemia, unspecified * E78.00 Pure hypercholesterolemia, unspecified* New Labs:* Lipid Profile, Scheduled: 05/18/21 * G62.9 Polyneuropathy, unspecified * Z68.28 Body mass index [BMI] 28.0-28.9, adult * E66.09 Other obesity due to excess calories * F32.89 Other specified depressive episodes * C50.312 Malignant neoplasm of lower-inner quadrant of left female breast * M85.80 Other specified disorders of bone density and structure, unspecified site * I10 Essential (primary) hypertension * All * Comments:* 10. Health Maintenance. I have approved the COVID booster for her. She has already had the flu shot. FIT cards are negative. She is up to date with her Mammogram, bone density as above. She has had the Adacel, she has had Shingrix. She believe she has had the pneumonia shots but we have not yet gotten any documentation of that. Functional Status Description No Information Available Mental Status Description No Information Available Referrals Refer to Dr Reason for Referral Status Appt Date [facility] EXERCISE NUCLEAR STRESS TEST DX: DYSPNEA ON EXERTION NO PRIOR AUTH REQ PER MARITZA Navarrete AT [facility] Created [address] [place] [address] [phone]
--- OUTSIDE RECORDS SUMMARY | 2021-04-02 16:00 | CCD ---
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 Name Role Phone Iéns Greene MD Unavailable Unavailable Inés Greene MD Unavailable Unavailable Inés Greene MD Unavailable Unavailable Inés Greene MD Unavailable Unavailable Inés Greene MD Unavailable Unavailable Inés Greene MD Unavailable Unavailable Inés Greene MD Unavailable Unavailable Inés Greene MD Unavailable Unavailable Inés Greene MD Unavailable Unavailable Inés Greene MD Unavailable Unavailable Inés Greene MD Unavailable Unavailable Inés Greene MD Unavailable Unavailable Inés Greene MD Unavailable Unavailable Inés Greene MD Unavailable Unavailable Inés Greene MD Unavailable Unavailable Inés Greene MD Unavailable Unavailable Inés Greene MD Unavailable Unavailable Inés Greene MD Unavailable Unavailable Inés Greene MD Unavailable Unavailable Inés Greene MD Unavailable Unavailable Inés Greene MD Unavailable Unavailable Inés Greene MD Unavailable Unavailable Inés Greene MD Unavailable Unavailable Inés Greene MD Unavailable Unavailable Inés Greene MD Unavailable Unavailable JcInés MD Unavailable Unavailable JcInés MD Unavailable Unavailable JcInés MD Unavailable Unavailable JcInés MD Unavailable Unavailable JcInés MD Unavailable Unavailable JcInés MD Unavailable Unavailable JcInés MD Unavailable Unavailable JcInés singer MD Unavailable Unavailable JcInés MD Unavailable Unavailable Inés Greene MD Unavailable Unavailable JcInés MD Unavailable Unavailable JcInés MD Unavailable Unavailable JcInés MD Unavailable Unavailable JcInés MD Unavailable Unavailable JcInés MD Unavailable Unavailable JcInés MD Unavailable Unavailable JcInés MD Unavailable Unavailable JcInés foster MD Unavailable Unavailable JcInés MD Unavailable Unavailable JcInés MD Unavailable Unavailable Inés Greene MD Unavailable Unavailable Inés Greene MD Unavailable Unavailable Inés Greene MD Unavailable Unavailable Inés Greene MD Unavailable Unavailable Inés Greene MD Unavailable Unavailable Inés rGeene MD Unavailable Unavailable Inés Greene MD Unavailable Unavailable Inés Greene MD Unavailable Unavailable Inés Greene MD Unavailable Unavailable Inés Greene MD Unavailable Unavailable Inés Greene MD Unavailable Unavailable Inés Greene MD Unavailable Unavailable Inés Greene MD Unavailable Unavailable Inés Greene MD Unavailable Unavailable Inés Greene MD Unavailable Unavailable Inés Greene MD Unavailable Unavailable Inés Greene MD Unavailable Unavailable Inés Greene MD Unavailable Unavailable Inés Greene MD Unavailable Unavailable Inés Greene MD Unavailable Unavailable Inés Greene MD Unavailable Unavailable Inés Greene MD Unavailable Unavailable Inés Greene MD Unavailable Unavailable Inés Greene MD Unavailable Unavailable Inés Greene MD Unavailable Unavailable Inés Greene MD Unavailable Unavailable Inés Greene MD Unavailable Unavailable Inés Greene MD Unavailable Unavailable Inés Greene MD Unavailable Unavailable JcInés foster MD Unavailable Unavailable JcInés MD Unavailable Unavailable JcInés MD Unavailable Unavailable JcInés MD Unavailable Unavailable JcInés MD Unavailable Unavailable JcInés MD Unavailable Unavailable JcInés MD Unavailable Unavailable JcInés MD Unavailable Unavailable JcInés singer MD Unavailable Unavailable JcInés MD Unavailable Unavailable Inés Greene MD Unavailable Unavailable CjInés MD Unavailable Unavailable JcInés MD Unavailable Unavailable JcInés MD Unavailable Unavailable JcInés MD Unavailable Unavailable JcInés MD Unavailable Unavailable JcInés MD Unavailable Unavailable JcInés MD Unavailable Unavailable JcInés foster MD Unavailable Unavailable JcInés MD Unavailable Unavailable JcInés MD Unavailable Unavailable Inés Greene MD Unavailable Unavailable Inés Greene MD Unavailable Unavailable Inés Greene MD Unavailable Unavailable Inés Greene MD Unavailable Unavailable Inés Greene MD Unavailable Unavailable Inés Greene MD Unavailable Unavailable Inés Greene MD Unavailable Unavailable Inés Greene MD Unavailable Unavailable Inés Greene MD Unavailable Unavailable Inés Greene MD Unavailable Unavailable Inés Greene MD Unavailable Unavailable Inés Greene MD Unavailable Unavailable Inés Greene MD Unavailable Unavailable Inés Greene MD Unavailable Unavailable Inés Greene MD Unavailable Unavailable Inés Greene MD Unavailable Unavailable Inés Greene MD Unavailable Unavailable Inés Greene MD Unavailable Unavailable Inés Greene MD Unavailable Unavailable Inés Greene MD Unavailable Unavailable Inés Greene MD Unavailable Unavailable Inés Greene MD Unavailable Unavailable Inés Greene MD Unavailable Unavailable Inés Greene MD Unavailable Unavailable Inés Greene MD Unavailable Unavailable Inés Greene MD Unavailable Unavailable Inés Greene MD Unavailable Unavailable Inés Greene MD Unavailable Unavailable Inés Greene MD Unavailable Unavailable JcInés foster MD Unavailable Unavailable JcInés MD Unavailable Unavailable JcInés MD Unavailable Unavailable Inés Greene MD Unavailable Unavailable Inés Greene MD Unavailable Unavailable JcInés MD Unavailable Unavailable JcInés MD Unavailable Unavailable JcInés MD Unavailable Unavailable Inés Greene MD Unavailable Unavailable JcInés MD Unavailable Unavailable Inés Greene MD Unavailable Unavailable JcInés MD Unavailable Unavailable JcInés MD Unavailable Unavailable JcInés MD Unavailable Unavailable JcInés MD Unavailable Unavailable JcInés MD Unavailable Unavailable JcInés MD Unavailable Unavailable JcInés MD Unavailable Unavailable JcInés MD Unavailable Unavailable JcInés MD Unavailable Unavailable JcInés MD Unavailable Unavailable Inés Greene MD Unavailable Unavailable Inés Greene MD Unavailable Unavailable Inés Greene MD Unavailable Unavailable Inés Greene MD Unavailable Unavailable Inés Greene MD Unavailable Unavailable Inés Greene MD Unavailable Unavailable Inés Greene MD Unavailable Unavailable Inés Greene MD Unavailable Unavailable Insé Greene MD Unavailable Unavailable Inés Greene MD Unavailable Unavailable Inés Greene MD Unavailable Unavailable Inés Greene MD Unavailable Unavailable Inés Greene MD Unavailable Unavailable Inés Greene MD Unavailable Unavailable Inés Greene MD Unavailable Unavailable Inés Greene MD Unavailable Unavailable Inés Greene MD Unavailable Unavailable Inés Greene MD Unavailable Unavailable Inés Greene MD Unavailable Unavailable Inés Greene MD Unavailable Unavailable Inés Greene MD Unavailable Unavailable Inés Greene MD Unavailable Unavailable Inés Greene MD Unavailable Unavailable Inés Greene MD Unavailable Unavailable Inés Greene MD Unavailable Unavailable Renetta Reeder MD Unavailable Unavailable Renetta Reeder MD Unavailable Unavailable Renetta Reeder MD Unavailable Unavailable Renetta Reeder MD Unavailable Unavailable Renetta Reeder MD Unavailable Unavailable Vaneenenaam, Renetta Boston MD Unavailable Unavailable Vaneenenaam, Renetta Boston MD Unavailable Unavailable Vaneenenaam, Renetta Boston MD Unavailable Unavailable Vaneenenaam, Renetta Boston MD Unavailable Unavailable Vaneenenaam, Renetta Boston MD Unavailable Unavailable Vaneenenaam, Renetta Boston MD Unavailable Unavailable Vaneenenaam, Renetta Boston MD Unavailable Unavailable Vaneenenaam, Renetta Boston MD Unavailable Unavailable Vaneenenaam, Renetta Boston MD Unavailable Unavailable Vaneenenaam, Renetta Boston MD Unavailable Unavailable Vaneenenaam, Renetta Boston MD Unavailable Unavailable Vaneenenaam, Renetta Boston MD Unavailable Unavailable Vaneenenaam, Renetta Boston MD Unavailable Unavailable Vaneenenaam, Renetta Boston MD Unavailable Unavailable Vaneenenaam, Renetta Boston MD Unavailable Unavailable Vaneenenaam, Renetta Boston MD Unavailable Unavailable Vaneenenaam, Renetta Boston MD Unavailable Unavailable Vaneenenaam, Renetta Boston MD Unavailable Unavailable Vaneenenaam, Renetta Boston MD Unavailable Unavailable Vaneenenaam, Renetta Boston MD Unavailable Unavailable Vaneenenaam, Renetta Boston MD Unavailable Unavailable Vaneenenaam, Renetta Boston MD Unavailable Unavailable Vaneenenaam, Renetta Boston MD Unavailable Unavailable Vaneenenaam, Renetta Boston MD Unavailable Unavailable Vaneenenaam, Renetta Boston MD Unavailable Unavailable Vaneenenaam, Renetta Boston MD Unavailable Unavailable Vaneenenaam, Renetta Boston MD Unavailable Unavailable Vaneenenaam, Renetta Boston MD Unavailable Unavailable Vaneenenaam, Renetta Boston MD Unavailable Unavailable Vaneenenaam, Renetta Boston MD Unavailable Unavailable Vaneenenaam, Renetta Boston MD Unavailable Unavailable Vaneenenaam, Renetta Boston MD Unavailable Unavailable Vaneenenaam, Renetta Boston MD Unavailable Unavailable Vaneenenaam, Renetta Boston MD Unavailable Unavailable Vaneenenaam, Renetta Boston MD Unavailable Unavailable Vaneenenaam, Renetta Boston MD Unavailable Unavailable Vaneenenaam, Renetta Boston MD Unavailable Unavailable Vaneenenaam, Renetta Boston MD Unavailable Unavailable Vaneenenaam, Renetta Boston MD Unavailable Unavailable Vaneenenaam, Renetta Boston MD Unavailable Unavailable Vaneenenaam, Renetta Boston MD Unavailable Unavailable Vaneenenaam, Renetta Boston MD Unavailable Unavailable Re-disclosure Warning The records that you are about to access may contain information from federally-assisted alcohol or drug abuse programs. If such information is present, then the following federally mandated warning applies: This information has been disclosed to you from records protected by federal confidentiality rules (42 CFR part 2). The federal rules prohibit you from making any further disclosure of this information unless further disclosure is expressly permitted by the written consent of the person to whom it pertains or as otherwise permitted by 42 CFR part 2. A general authorization for the release of medical or other information is NOT sufficient for this purpose. The Federal rules restrict any use of the information to criminally investigate or prosecute any alcohol or drug abuse patient.The records that you are about to access may contain highly sensitive health information, the redisclosure of which is protected by Article 27-F of the [facility] Public Health law. If you continue you may have access to information: Regarding HIV / AIDS; Provided by facilities licensed or operated by the [facility] Office of Mental Health; or Provided by the [facility] Office for People With Developmental Disabilities. If such information is present, then the following [facility] mandated warning applies: This information has been disclosed to you from confidential records which are protected by state law. State law prohibits you from making any further disclosure of this information without the specific written consent of the person to whom it pertains, or as otherwise permitted by law. Any unauthorized further disclosure in violation of state law may result in a fine or mcfp sentence or both. A general authorization for the release of medical or other information is NOT sufficient authorization for further disc losure. Family History Family Member Name Family Member Gender Family Member Status Date o f Status Description Data Source(s) Unknown Male Problem [facility] ([facility]) Unknown Female Problem [facility] ([facility] Unknown Female Problem [facility] ([facility]) Unknown Female Problem [facility] ([facility]) Unknown Female Problem [facility] ([facility]) Unknown Female Problem [facility] ([facility]) Encounters Encounter Providers Location Date Indications Data Source(s ) Outpatient Referrer: Danielle [email or web address] 09/2020 12:00:00 AM EDT - 02/04/2021 10:47:32 AM EDT [facility] Outpatient Attender: Danielle Hull 01:30:00 PM EDT [facility] ([facility] ) Outpatient Attender: Danielle Hull 10:30:00 AM EDT [facility] ([facility] ) Outpatient Attender: Danielle Hull 01:00:00 PM EST [facility] ([facility] ) Office Visit Attender: Renetta Reeder MD Physical Therap y 04/21/2020 08:30:00 AM EST [facility] ([facility]) Office Visit Attender: Renetta Reeder MD Physical Therap y 03/25/2020 09:30:00 AM EST [facility] ([facility]) Outpatient Attender: Danielle Hull 10:00:00 AM EDT [facility] ([facility] ) Immunizations Vaccine Date Status Description Data Source(s) COVID-19 VACCINE Pfizer 01/30/2021 12:00:00 AM EDT completed [facility] Vaccine Series Complete: YESThis Data wa s Submitted to [facility] Via [employer]. This CVX code allows reporting of a vacc ination when formulation is unknown (for example, when recording a Influenza vaccination when noted on a vaccination card) 12/30/2020 01:39:00 PM EDT completed MEDEN T ([facility]) Tdap 12/10/2020 11:43:00 AM EDT completed M EDENT ([facility]) COVID-19 VACCINE Pfizer 07/20/2020 12:00:00 AM EDT completed [facility] Vaccine Series Complete: YESThis Data wa s Submitted to [facility] Via [employer]. COVID-19 VACCINE Pfizer 06/29/2020 12:00:00 AM EST completed [facility] Vaccine Series Complete: NOThis Data was Submitted to [facility] Via [employer]. Medications Medication Brand Name Start Date Product Form Dose Route Admi nistrative Instructions Pharmacy Instructions Status Indications Reaction Description Data Source(s) Immunization Adminstration,1 Vaccine/Toxoid 12/10/2020 12:00 :00 AM EDT completed [facility] ([facility]) Medication administered onsite Kelp 12/10/2020 12:00:00 AM EDT active [facility] ([facility]) coenzyme Q10 100 MG Oral Capsule Co Q 10 12/10/2020 12:00:00 AM EDT ORAL active [facility] ([facility]) Rosuvastatin calcium 5 MG Oral Tablet Rosuvastatin Calcium 0 12/10/2020 12:00:00 AM EDT ORAL active [facility] ([facility]) Citalopram 20 MG Oral Tablet Citalopram Hydrobromide 12/10/2020 12:00:00 AM EDT ORAL active [facility] ( [facility]) gabapentin 100 MG Oral Capsule Gabapentin 12/10/2020 12:00:00 AM EDT ORAL completed [facility] ([facility]) Acetaminophen 325 MG / Hydrocodone Bitartrate 5 MG Ora l Tablet Hydrocodone-Acetaminophen 02/12/2020 12:00:00 AM EDT ORAL active [facility] ([facility]) Magnesium 02/07/2020 12:00:00 AM EDT active [facility] ([facility]) atorvastatin 20 MG Oral Tablet Atorvastatin Calcium 12/10/2019 1 2:00:00 AM EDT ORAL completed [facility] ([facility]) Insurance Providers Payer name Policy type / Coverage type Policy ID Covered alliance party ID Covered alliance party's relationship to pizano Policy P[place] Plan Information [facility] [id number] SP [id number] [facility] [id number] SP [id number] [facility] [id number] SP [id number] [employer] Compensation [id number] Self [id number] [employer] Workers Compensation [id number] Self [id number] [employer] Workers Compensation [id number] .[id number] Self [id number] [employer] Workers Compensation [id number] Self [employer] Workers Compensation [id number]2.0 Self [id number] [employer] Workers Compensation [id number] .840.1.857875.3.227.99.4595.7992.0 Self [id number] [employer] Workers Compensation [id number] 2.16.840.1.446489.3.227.99.991.349232.0 Self [id number] [employer] Workers Compensation [id number] 2.16.840.1.761580.3.227.99.991.634886.0 Self [id number] [employer] Workers Compensation [id number] 2.16.840.1.304890.3.227.99.991.798349.0 Self [id number] [employer] Workers Compensation [id number] 2.16.840.1.272952.3.227.99.991.781752.0 Self [id number] [facility] [employer] (NF) Workers Compensation 2.16.840.1.057643.3.227.99.991.582131.0 Self [employer] Workers Compensation [id number] Self [id number] [employer] Workers Compensation [id number] Self [id number] [employer] Workers Compensation [id number] Self [id number] [employer] Workers Compensation [id number] Self [id number] [employer] Workers Compensation [id number] 2.16.840.1.805527.3.227.99.991.681431.0 Self [id number] [employer] Workers Compensation [id number] 2.16.840.1.585676.3.227.99.991.303129.0 Self [id number] [employer] Workers Compensation [id number] 2.16.840.1.136153.3.227.99.991.536532.0 Self [id number] [facility] [employer] (NF) Workers Compensation [id number] 2.16.840.1.867842.3.227.99.991.795022.0 Self [id number] [facility] [employer] (NF) Workers Compensation [id number] 2.16.840.1.842347.3.227.99.991.472134.0 Self [id number] [facility] [employer] (NF) Workers Compensation [id number] 2.16.840.1.399068.3.227.99.991.472434.0 Self [id number] [facility] [employer] (NF) Workers Compensation [id number] 2.16.840.1.407916.3.227.99.991.350430.0 Self [id number] [employer] (pr) Medigap Part B [id number] 2.16.840.1.980047.3.227.99 .991.588955.0 Self [id number] [employer] (pr) Medigap Part B [id number] Self [id number] [employer] (pr) Medigap Part B [id number] 2.16840.1.751117.3.227.99 .991.639420.0 Self [id number] [employer] (pr) Medigap Part B [id number] 2.16.840.1.201330.3.227.99 .991.486834.0 Self [id number] [employer] (pr) Medigap Part B [id number] 2.16.840.1.459372.3.227.99 .991.318350.0 Self [id number] [employer] (pr) Medigap Part B [id number] 2.16.840.1.036074.3.227.99 .991.541226.0 Self [id number] [employer] (pr) Medigap Part B [id number] 2.16.840.1.725368.3.227.99 .991.422618.0 Self [id number] [employer] (pr) Commercial [id number] Self [employer] (pr) Medigap Part B [id number] 2.16.840.1.657566.3.227.99 .991.291329.0 Self [id number] [employer] (pr) Medigap Part B [id number] 2.16.840.1.019053.3.227.99 .991.178281.0 Self [id number] [employer] (pr) Medigap Part B [id number] 2.16.840.1.165386.3.227.99 .991.503923.0 Self [id number] [employer] (pr) Medigap Part B [id number] 2.16.840.1.261082.3.227.99 .991.327829.0 Self [id number] [employer] (pr) Medigap Part B [id number] 2.16.840.1.891466.3.227.99 .991.686249.0 Self [id number] [employer] (pr) Medigap Part B [id number] Self [id number] [employer] (pr) Medigap Part B [id number] Self [id number] [employer] (pr) Medigap Part B [id number] Self [id number] [employer] Workers Compensation 2.16.840.1.545281.3.227.99.991.067281.0 Self [employer] Workers Compensation [id number] Self [id number] [employer]) Workers Compensation 2.16.840.1.038390.3.227.99.991.859093.0 Self [employer] Workers Compensation [id number] Self [id number] UMR U [id number] Self [id number] UMR [facility] [id number] SP [id number] UMR [id number] Jessie [id number] UMR [id number] xxxxxxxxx [id number] Umr (New [employer]) Commercial [id number] 2.0.1.799753.3.227.9 9.4595.7992.0 Self [id number] [employer] (pr) Commercial [id number] Self [id number] UMR U [id number] Self [id number] [employer] COMP [id number] SP [id number] UMR O [id number] S [id number] UMR CO [id number] 18 [id number] Umr Commercial [id number] Self [id number] [facility] [id number] 2.0.1.647358.3.227.99.4595.7992.0 Self 0 [id number] [employer] (Old) Medigap Part B [id number] 2.840.1.642925.3.227 .99.4595.7992.0 Self [id number] [facility] Medigap Part B [id number] 2.840.1.985689.3.227.99.4595.7992.0 Self 0 [id number] [employer] (Old) Medigap Part B [id number] 2.840.1.369241.3.227 .99.4595.7992.0 Self [id number] [employer] (HMO) [id number] 2.16.840.1.633519.3.227.99.1767.212.0 Self [id number] [id number] [employer] (HMO) [id number] 2.16.840.1.442621.3.227.99.1767.212.0 Self [id number] [employer] (HMO) [id number] 2.16.840.1.095109.3.227.99.1767.212.0 Self [id number] [employer] Maintenance [employer] (HMO) [id number] 2.16.840.1.953728.3.227.99.1767.212.0 Self Y1 [id number] UMR O [id number] S [id number] UMR O [id number] S [id number] 300 [employer] Medigap Part B [id number] 2.16.840.1.083227.3.227.99.4595.7992.0 Self 0 [id number] [employer] (Old) Medigap Part B [id number] 2.16.840.1.679322.3.227 .99.4595.7992.0 Self [id number] UMR O [id number] S [id number] [employer] PPO O [id number] S [id number] [employer] Medigap Part B [id number] 2.16.840.1.611184.3.227.99.4595.7992.0 Self 0 [id number] [employer] Ppo Commercial [id number] 2.16.840.1.953542.3.227.99.4595.7992.0 Self [id number] [employer] COMP [id number] SP [id number] [facility] [employer] Medigap Part B [id number] 2.16.840.1.080723.3.227.99.4595.7992.0 Self 0 [id number] [employer] Ppo Commercial [id number] 2.16.840.1.126301.3.227.99.4595.7992.0 Self [id number] [employer] Commercial [id number] 2.16.840.1.476461.3.227.99.1767.212.0 S elf [id number] [employer] O [id number] S [id number] [employer] WORK COMP [id number] SP [id number] [facility] [employer] Medigap Part B [id number] Self [employer] Ppo Commercial [id number] Self [employer] [id number] SP [id number] [employer] Commercial 226 Self Problems, Conditions, and Diagnoses Code Display Name Description Problem Type Effective Dates Data Source(s) R06.00 Dyspnea, unspecified Dyspnea, unspecified Diagnosis 02/04/2021 07:10:16 AM EDT [facility] C50.312 Malignant neoplasm of lower-inner quadra nt of female breast Malignant neoplasm of lower-inner quadrant of female breast Problem 12/2019 12:00:00 AM EDT [facility] ([facility]) E66.3 Overweight Overweight Problem 02/07/2020 12:00:00 AM ED T [facility] ([facility]) E55.9 Vitamin D deficiency Vitamin D deficiency Problem 02/07/2020 12:00:00 AM EDT [facility] ([facility]) E78.00 Pure hypercholesterolemia Pure hypercholesterolemia Pr oblem 02/07/2020 12:00:00 AM EDT [facility] ([facility]) R03.0 Elevated blood-pressure reading without diagnosis of hypertension Elevated blood-pressure reading without diagnosis of hypertension Problem 02/07/2020 12:00:00 AM EDT [facility] ([facility]) Surgeries/Procedures Procedure Description Date Indications Data Source(s) OFFICE OUTPATIENT VISIT 25 MINUTES 01/26/2021 12:00:00 AM EDT [facility] ([facility]) Bone Mineral Density Test 12/24/2020 12:00:00 AM EDT [facility] ([facility]) Mammogram 12/24/2020 12:00:00 AM EDT M [facility]ENT ([facility]) ECG ROUTINE ECG W/LEAST 12 LDS W/I&R 12/10/2020 12:00: 00 AM EDT [facility] ([facility]) Brief Emotional/Behav Assessment W/ Scoring Doc Per Standard Inst 12/10/2020 12:00:00 AM EDT [facility] ([facility] ) PERIODIC PREVENTIVE MED EST PATIENT 65YRS&> 12/10/2020 12:00:00 AM EDT [facility] ([facility]) Transplant Tendon Forearm/Wrist 03/13/2020 12:00:00 AM EST [facility] ([facility]) Arthroplasty Interposition IC/CM JTS 03/13/2020 12:00: 00 AM EST [facility] ([facility]) ECG ROUTINE ECG W/LEAST 12 LDS W/I&R 02/07/2020 12:00: 00 AM EDT [facility] ([facility]) Results ID Date Data Source [id number] 01/17/2021 09:28:00 AM EDT [facility] ([facility]) Name Value Range Interpretation Code Description Data Irma rce(s) Supporting Document(s) Triglycerides Level 84 mg/dL [facility] ([facility]) Cholesterol Level 192 mg/dL [facility] ([facility]) LDL Cholesterol 91 mg/dL [facility] ([facility]) HDL Cholesterol 84 mg/dL [facility] ([facility]) Non-HDL-C 108 mg/dL [facility] ([facility]) Cholesterol Risk Ratio 2.285 [facility] ([facility]) ID Date Data Source [id number] 01/17/2021 09:28:00 AM EDT [facility] ([facility]) Name Value Range Interpretation Code Description Data Irma rce(s) Supporting Document(s) Glucose, Fasting 86 mg/dL 70-100 [facility] ([facility]) Blood Urea Nitrogen 19 mg/dL 7-18 [facility] ([facility]) Glomerular Filtration Rate Laboratory test result [facility] ([facility]) <content>Units are mL/min/1.73 m2</content>
<content></content>
<content>Chronic Kidney Disease Staging per NKF:</content>
<content></content>
<content>Stage I & II GFR >=60 Normal to Mildly Decreased</content>
<content>Stage III GFR 30-59 Moderately Decreased</content>
<content>Stage IV GFR 15-29 Severely Decreased</content>
<content>Stage V GFR <15 Very Little GFR Left</content>
<content>ESRD GFR <15 on MICA SPLITTER</content>
<content></content> Creatinine For GFR 0.89 mg/dL 0.55-1.30 [facility] ([facility]) Sodium Level 141 meq/L 136-145 [facility] ([facility]) Potassium Serum 4.4 meq/L 3.5-5.1 [facility] ([facility]) Chloride Level 106 meq/L 98-107 [facility] ([facility]) Carbon Dioxide Level 29 meq/L 21-32 [facility] ([facility]) Anion Gap 6 meq/L 8-16 [facility] ([facility]) Calcium Level 8.7 mg/dL 8.8-10.2 [facility] ([facility]) Ast/Sgot 20 U/L 7-37 [facility] ([facility]) Alt/SGPT 19 U/L 12-78 [facility] ([facility]) Alkaline Phosphatase 49 U/L 45-117 [facility] ([facility]) Bilirubin,Total 0.6 mg/dL 0.2-1.0 [facility] ([facility]) Total Protein 5.9 GM/DL 6.4-8.2 [facility] ([facility]) Albumin 3.3 GM/DL 3.2-5.2 [facility] ([facility]) Albumin/Globulin Ratio 1.3 1.2-2.2 [facility] ([facility]) ID Date Data Source [id number] 12/25/2020 11:34:00 AM EDT [facility] Name Value Range Interpretation Code Description Data Irma rce(s) Supporting Document(s) Hemoglobin.gastrointestinal [Presence] in Stool by Imm unologic method Laboratory test result [facility] ([facility] ID Date Data Source [id number] 12/09/2020 07:51:00 AM EDT [facility] ([facility] Name Value Range Interpretation Code Description Data Irma rce(s) Supporting Document(s) Calcidiol [Mass/volume] in Serum or Plasma 59.7 ng/mL 24.0-80.0 [facility] This test was performed using Fast[employer] I P Vitamin D immunoassay kit. Values obtained with different assay methods should not be used interchangeably. ID Date Data Source [id number] 12/09/2020 07:50:00 AM EDT [facility] Name Value Range Interpretation Code Description Data Irma rce(s) Supporting Document(s) Cobalamin (Vitamin B12) [Mass/volume] in Serum or Plasma 1003 pg/mL 2 47-911 [facility] VITAMIN B12 NORMAL RANGE NORMAL 247 - 911 PG/ML INDETERMINATE 211 - 246 PG/ML DEFICIENT LESS THAN 211 PG/ML ID Date Data Source [id number] 12/09/2020 07:50:00 AM EDT [facility] Name Value Range Interpretation Code Description Data Irma rce(s) Supporting Document(s) Magnesium 2.3 mg/dL 1.8-2.4 [facility]) ID Date Data Source [id number] 12/09/2020 07:50:00 AM EDT [facility] Name Value Range Interpretation Code Description Data Irma rce(s) Supporting Document(s) Thyrotropin [Units/volume] in Serum or Plasma by Detec tion limit <= 0.05 mIU/L 1.34 uIU/mL 0.36-3.74 [facility] ([facility] ) ID Date Data Source [id number] 12/09/2020 07:50:00 AM EDT [facility] ([facility]) Name Value Range Interpretation Code Description Data Irma rce(s) Supporting Document(s) Cholesterol [Mass/volume] in Serum or Plasma 282 mg/dL 131-200 [facility] ([facility]) Triglyceride [Mass/volume] in Serum or Plasma 101 mg/dL 30-150 [facility] ([facility]) Cholesterol in HDL [Mass/volume] in Serum or Plasma 76 mg/dL 35-60 [facility] ([facility]) Cholesterol in LDL [Mass/volume] in Serum or Plasma by calcu lation 186 CALC 50-159 [facility] ([facility]) ID Date Data Source [id number] 12/09/2020 07:50:00 AM EDT [facility] ([facility]) Name Value Range Interpretation Code Description Data Irma rce(s) Supporting Document(s) Glucose [Mass/volume] in Serum or Plasma 89 mg/dL 74-99 [facility] ([facility]) 100-125 mg/dL PRE-DIABETES/FASTING >126 mg/dL DIABETES/FASTING Urea nitrogen [Mass/volume] in Serum or Plasma 20 mg/dL 7-18 [facility] ([facility]) Sodium [Moles/volume] in Serum or Plasma 142 meq/L 136-145 [facility] ([facility]) Creatinine 1.0 mg/dL 0.6-1.3 [facility]) Chloride [Moles/volume] in Serum or Plasma 104 meq/L 98-107 [facility] ([facility]) Potassium [Moles/volume] in Serum or Plasma 4.1 meq/L 3.5-5.1 [facility] ([facility]) Carbon dioxide, total [Moles/volume] in Serum or Plasma 29 meq/L 21 -32 [facility] ([facility]) Calcium [Mass/volume] in Serum or Plasma 9.6 mg/dL 8.5-10.1 [facility] ([facility]) Glomerular filtration rate/1.73 sq M pre dicted among non-blacks [Volume Rate/Area] in Serum or Plasma by Creatinine-based formula (MDRD) 55 mL/min [facility] ([facility]) Glomerular filtration rate/1.73 sq M pre dicted among blacks [Volume Rate/Area] in Serum or Plasma by Creatinine-based formula (MDRD) Laboratory test result [facility] <content>CHRONIC KIDNEY DISEASE STAGING PER NKF</content>
<content></content>
<content>STAGE I & II GFR >= 60 NORMAL TO MILDLY DECREASED</content>
<content>STAGE III GFR 30-59 MODERATELY DECREASED</content>
<content>STAGE IV GFR 15-29 SEVERELY DECREASED</content>
<content>STAGE V GFR <15 VERY LITTLE GFR LEFT</content>
<content>ESRD GFR <15 ON MICA SPLITTER</content>
<content></content> ID Date Data Source [id number] 12/09/2020 07:50:00 AM EDT [facility] ([facility]) Name Value Range Interpretation Code Description Data Irma rce(s) Supporting Document(s) Erythrocytes [#/volume] in Blood by Automated count 4.76 x10*6/UL 4.2 0-6.30 [facility] ([facility]) Hemoglobin [Mass/volume] in Blood 14.8 g/dL 12.0-18.0 [facility] ([facility]) Leukocytes [#/volume] in Blood by Automated count 4.2 x10*3/UL 4.1-10 .9 [facility] Hematocrit [Volume Fraction] of Blood by Automated count 43.7 % 3 7.0-51.0 [facility] ([facility]) MCV 91.8 fL 80.0-97.0 [facility] ([facility]) MCH 31.1 pg 26.0-32.0 [facility] ([facility]) Platelets [#/volume] in Blood by Automated count 240 x10*3/UL 140-440 [facility] MCHC 33.9 g/dL 31.0-38.0 [facility] ([facility]) Erythrocyte distribution width [Ratio] by Automated count 12.8 % 11.6-13.7 [facility] ([facility]) Lymph % 33.6 % 10.0-58.5 [facility]) MPV 7.7 FL 7.8-11.0 [facility]) Neut % 59.4 % 37.0-92.0 [facility]) Mid % 7.0 % 1.7-9.3 [facility]) Lymph # 1.4 x10*3/UL 0.6-4.1 [facility] ([facility]) Neut # 2.5 x10*3/UL 2.0-7.8 [facility] ([facility]) Mid # 0.3 x10*3/UL 0.1-0.6 [facility] ([facility]) ID Date Data Source [id number] 04/23/2020 08:17:00 AM EST [facility] ([facility]) Name Value Range Interpretation Code Description Data Irma rce(s) Supporting Document(s) Cholesterol [Mass/volume] in Serum or Plasma 308 mg/dL 131-200 [facility] ([facility]) Triglyceride [Mass/volume] in Serum or Plasma 115 mg/dL 30-150 [facility] ([facility]) Cholesterol in HDL [Mass/volume] in Serum or Plasma 90 mg/dL 35-60 [facility] ([facility]) Cholesterol in LDL [Mass/volume] in Serum or Plasma by calcu lation 195 CALC 50-159 [facility] ([facility]) ID Date Data Source [id number] 04/23/2020 08:17:00 AM EST [facility] ([facility]) Name Value Range Interpretation Code Description Data Irma rce(s) Supporting Document(s) Glucose [Mass/volume] in Serum or Plasma 72 mg/dL 74-99 [facility] ([facility]) 100-125 mg/dL PRE-DIABETES/FASTING >126 mg/dL DIABETES/FASTING Urea nitrogen [Mass/volume] in Serum or Plasma 21 mg/dL 7-18 [facility] ([facility]) Creatinine 1.0 mg/dL 0.6-1.3 [facility]) Potassium [Moles/volume] in Serum or Plasma 4.1 meq/L 3.5-5.1 [facility] ([facility]) Sodium [Moles/volume] in Serum or Plasma 140 meq/L 136-145 [facility] ([facility]) Calcium [Mass/volume] in Serum or Plasma 9.3 mg/dL 8.5-10.1 [facility] Carbon dioxide, total [Moles/volume] in Serum or Plasma 31 meq/L 21 -32 [facility] ([facility]) Chloride [Moles/volume] in Serum or Plasma 103 meq/L 98-107 [facility] Glomerular filtration rate/1.73 sq M pre dicted among non-blacks [Volume Rate/Area] in Serum or Plasma by Creatinine-based formula (MDRD) 56 mL/min [facility] Glomerular filtration rate/1.73 sq M pre dicted among blacks [Volume Rate/Area] in Serum or Plasma by Creatinine-based formula (MDRD) Laboratory test result [facility] ([facility]) <content>CHRONIC KIDNEY DISEASE STAGING PER NKF</content>
<content></content>
<content>STAGE I & II GFR >= 60 NORMAL TO MILDLY DECREASED</content>
<content>STAGE III GFR 30-59 MODERATELY DECREASED</content>
<content>STAGE IV GFR 15-29 SEVERELY DECREASED</content>
<content>STAGE V GFR <15 VERY LITTLE GFR LEFT</content>
<content>ESRD GFR <15 ON MICA SPLITTER</content>
<content></content> ID Date Data Source [id number] 03/08/2020 12:00:00 PM EST [facility] Name Value Range Interpretation Code Description Data Irma rce(s) Supporting Document(s) SARS coronavirus 2 RNA [facility] This lab was ordered by [facility] and reported by [facility]. ID Date Data Source [id number] 02/07/2020 10:56:00 AM EDT [facility] ([facility] Name Value Range Interpretation Code Description Data Irma rce(s) Supporting Document(s) Rheumatoid Factor Quant Laboratory test result [facility] ([facility]) ID Date Data Source [id number] 02/07/2020 10:56:00 AM EDT [facility] ([facility]) Name Value Range Interpretation Code Description Data Irma rce(s) Supporting Document(s) Antinuclear Antibodies Direct Laboratory test result [facility] ([facility]) Performed at: RN - [facility] [address] [id number] Chaperon: Shala Nam MD, Phone: [phone] ID Date Data Source [id number] 02/07/2020 10:56:00 AM EDT [facility] ([facility]) Name Value Range Interpretation Code Description Data Irma rce(s) Supporting Document(s) C reactive protein [Mass/volume] in Serum or Plasma by High sensitivity method Laboratory test result 0.00-0.30 [facility] ([facility]) ID Date Data Source [id number] 02/07/2020 10:54:00 AM EDT [facility] ([facility]) Name Value Range Interpretation Code Description Data Irma rce(s) Supporting Document(s) Thyrotropin [Units/volume] in Serum or Plasma by Detec tion limit <= 0.05 mIU/L 1.15 uIU/mL 0.36-3.74 [facility] ([facility] ) Creatine kinase [Enzymatic activity/volume] in Serum or Plasma 100 U/L 26-192 [facility] ([facility]) ID Date Data Source [id number] 02/07/2020 10:54:00 AM EDT [facility] ([facility]) Name Value Range Interpretation Code Description Data Irma rce(s) Supporting Document(s) Triglyceride [Mass/volume] in Serum or Plasma 128 mg/dL 30-150 [facility] ([facility]) Cholesterol in HDL [Mass/volume] in Serum or Plasma 91 mg/dL 35-60 [facility] ([facility]) Cholesterol [Mass/volume] in Serum or Plasma 291 mg/dL 131-200 [facility] ([facility]) Cholesterol in LDL [Mass/volume] in Serum or Plasma by calcu lation 174 CALC 50-159 [facility] ([facility]) ID Date Data Source [id number] 02/07/2020 10:54:00 AM EDT [facility] ([facility]) Name Value Range Interpretation Code Description Data Irma rce(s) Supporting Document(s) Erythrocyte sedimentation rate by Westergren method 5 mm/hr 0-15 [facility] ([facility]) ID Date Data Source [id number] 02/07/2020 10:54:00 AM EDT [facility] ([facility]) Name Value Range Interpretation Code Description Data Irma rce(s) Supporting Document(s) Erythrocytes [#/volume] in Blood by Automated count 4.79 x10*6/UL 4.2 0-6.30 [facility] ([facility]) Leukocytes [#/volume] in Blood by Automated count 4.6 x10*3/UL 4.1-10 .9 [facility] ([facility]) Hemoglobin [Mass/volume] in Blood 15.1 g/dL 12.0-18.0 [facility] ([facility]) MCH 31.5 pg 26.0-32.0 [facility] ([facility]) MCV 91.0 fL 80.0-97.0 [facility] ([facility]) Hematocrit [Volume Fraction] of Blood by Automated count 43.6 % 3 7.0-51.0 [facility] Platelets [#/volume] in Blood by Automated count 233 x10*3/UL 140-440 [facility] MCHC 34.6 g/dL 31.0-38.0 [facility] ([facility]) Erythrocyte distribution width [Ratio] by Automated count 12.5 % 11.6-13.7 [facility] ([facility]) MPV 7.4 FL 7.8-11.0 [facility] ([facility]) Lymph % 25.1 % 10.0-58.5 [facility] ([facility]) Mid % 6.1 % 1.7-9.3 [facility] ([facility]) Lymph # 1.1 x10*3/UL 0.6-4.1 [facility] ([facility]) Neut % 68.8 % 37.0-92.0 [facility] ([facility]) Mid # 0.4 x10*3/UL 0.1-0.6 [facility] ([facility]) Neut # 3.1 x10*3/UL 2.0-7.8 [facility] ([facility]) Procedure Social History No Information Vital Signs ID Date Data Source UNK Name Value Range Interpretation Code Description Data Source(s) Systolic blood pressure 112 mm[Hg] 112 mm[facility]Hg] [facility] RT Arm Diastolic blood pressure 68 mm[Hg] 68 mm[Hg] [facility]) RT Arm Heart rate 80 /min 80 /min [facility] ([facility]) Body height 66.75 [in_i] 66.75 [in_i] [facility] ([facility]) 5'6.75" Body weight 182.00 [lb_av] 182.00 [lb_av] [facility] ([facility]) Body mass index (BMI) [Ratio] 28.7 kg/m2 28.7 k g/m2 [facility] ([facility]) Oxygen saturation in Arterial blood by Pulse oximetry --post exerci se 95 % 95 % [facility] ([facility]) RM Air Body mass index (BMI) [Ratio] 29.1 kg/m2 29.1 k g/m2 [facility] ([facility]) Diastolic blood pressure 90 mm[Hg] 90 mm[Hg] [facility] ([facility]) RT Arm Heart rate 76 /min 76 /min [facility] ([facility]) Body height 66.75 [in_i] 66.75 [in_i] [facility] ([facility]) 5'6.75" Body weight 184.38 [lb_av] 184.38 [lb_av] [facility] ([facility]) Systolic blood pressure 132 mm[Hg] 132 mm[Hg] [facility] RT Arm Systolic blood pressure 128 mm[Hg] 128 mm[Hg] M [facility]) LT Arm Diastolic blood pressure 86 mm[Hg] 86 mm[Hg] [facility] ([facility]) LT Arm Body weight 187.50 [lb_av] 187.50 [lb_av] [facility] ([facility]) Body mass index (BMI) [Ratio] 29.6 kg/m2 29.6 k g/m2 [facility] ([facility]) Heart rate 88 /min 88 /min [facility] Body height 66.75 [in_i] 66.75 [in_i] [facility] 5'6.75" Body height 67 [in_i] 67 [in_i] [facility] ([facility]) 5'7" Body temperature 96.8 [degF] 96.8 [degF] [facility] ([facility]) Body weight 180.00 [lb_av] 180.00 [lb_av] [facility] ([facility]) Body mass index (BMI) [Ratio] 28.2 kg/m2 28.2 k g/m2 [facility] ([facility] Heart rate 79 /min 79 /min [facility] ([facility]) Body height 66.75 [in_i] 66.75 [in_i] [facility] 5'6.75" Systolic blood pressure 170 mm[Hg] 170 mm[Hg] M [facility] ([facility]) RT Arm Diastolic blood pressure 90 mm[Hg] 90 mm[Hg] [facility] ([facility]) RT Arm Systolic blood pressure 140 mm[Hg] 140 mm[Hg] [facility] Diastolic blood pressure 88 mm[Hg] 88 mm[Hg] [facility] ([facility]) Body weight 184.00 [lb_av] 184.00 [lb_av] [facility] T ([facility]) Oxygen saturation in Arterial blood by Pulse oximetry --post exerci se 98 % 98 % [facility] ([facility]) RM Air Body mass index (BMI) [Ratio] 29.0 kg/m2 29.0 k g/m2 [facility] ([facility])
[2021-04-02] MEDS ORDERED: ROSU5TAB5 (16:27)
--- OUTSIDE RECORDS SUMMARY | 2021-04-02 17:10 | CCD ---
Author Author [facility] Organization [facility] Address Unknown Phone Unavailable Care Team Providers Care Extrusion Supervisor Name Role Phone Inés Greene MD Unavailable Unavailable Inés Greene [...] MD Unavailable Unavailable JcInés MD Unavailable Unavailable CjInés MD Unavailable Unavailable [...] Unavailable Unavailable Inés Greene MD Unavailable Unavailable Iéns Greene MD Unavailable Unavailable Inés Greene [...] Unavailable Inés Greene MD Unavailable Unavailable Inés Greeen MD Unavailable Unavailable JcInés MD Unavailable Unavailable [...] Renetta Boston MD Unavailable Unavailable Vaneenenaam, Renetta Botson MD Unavailable Unavailable Vaneenenaam, Renetta Boston MD [...] is protected by Article 27-F of the [facility] Public Health law. If you continue you may have access to information: Regarding HIV / AIDS; Provided by facilities licensed or operated by the [facility] Office of Mental Health; or Provided by the [facility] Office for People With Developmental Disabilities. If such information is present, then the following [facility] mandated warning applies: This information has been [...] law may result in a fine or longterm sentence or both. A general authorization for the release of medical or other information is NOT sufficient authorization for further disc losure. Family History Family Member Name Family Member Gender Family Member Status Date o f Status Description Data Source(s) Unknown Male Problem [facility] ([facility]) Unknown Female Problem [facility] ([facility]) Unknown Female Problem [facility] ([facility] Unknown Female Problem [facility] ([facility]) Unknown Female Problem [facility] ([facility]) Unknown Female Problem [facility] ([facility]) Encounters Encounter Providers Location Date Indications Data Source(s ) Outpatient Referrer: Danielle [email or web address] 09/2020 12:00:00 AM EDT - 02/04/2021 10:47:32 AM EDT [facility] Outpatient Attender: Danielle Hull 01:30:00 PM EDT [facility] ([facility] ) Outpatient Attender: Danielle Hull 10:30:00 AM EDT [facility] ([facility] ) Outpatient Attender: Danielle Hull 01:00:00 PM EST [facility] ([facility] ) Office Visit Attender: Renetta Reeder MD Physical Therap y 04/21/2020 08:30:00 AM EST [facility] ([facility]) Office Visit Attender: Renetta Reeder MD Physical Therap y 03/25/2020 09:30:00 AM EST [facility] ([facility]) Outpatient Attender: Danielle Hull 10:00:00 AM EDT [facility] ([facility] ) Immunizations Vaccine Date Status Description Data Source(s) COVID-19 VACCINE Pfizer 01/30/2021 12:00:00 AM EDT completed [facility] Vaccine Series Complete: YESThis Data wa s Submitted to [facility]. This CVX code allows reporting of a vacc ination when formulation is unknown (for example, when recording a Influenza vaccination when noted on a vaccination card) 12/30/2020 01:39:00 PM EDT completed MEDEN T ([facility]) Tdap 12/10/2020 11:43:00 AM EDT completed M EDENT ([facility]) COVID-19 VACCINE Pfizer 07/20/2020 12:00:00 AM EDT completed [facility]IS Vaccine Series Complete: YESThis Data wa s Submitted to [facility]. COVID-19 VACCINE Pfizer 06/29/2020 12:00:00 AM EST completed [facility] Vaccine Series Complete: NOThis Data was Submitted to [facility]. Medications Medication Brand Name Start Date Product Form Dose Route Admi nistrative Instructions Pharmacy Instructions Status Indications Reaction Description Data Source(s) Immunization Adminstration,1 Vaccine/Toxoid 12/10/2020 12:00 :00 AM EDT completed [facility] ([facility]) Medication administered onsite Kelp 12/10/2020 12:00:00 AM EDT active [facility] ([facility]) coenzyme Q10 100 MG Oral Capsule Co Q 10 12/10/2020 12:00:00 AM EDT ORAL active [facility] ([facility]) Rosuvastatin calcium 5 MG Oral Tablet Rosuvastatin Calcium 0 12/10/2020 12:00:00 AM EDT ORAL active [facility] ([facility]) Citalopram 20 MG Oral Tablet Citalopram Hydrobromide 12/10/2020 12:00:00 AM EDT ORAL active [facility] ( [facility]) gabapentin 100 MG Oral Capsule Gabapentin 12/10/2020 12:00:00 AM EDT ORAL completed [facility] ([facility]) Acetaminophen 325 MG / Hydrocodone Bitartrate 5 MG Ora l Tablet Hydrocodone-Acetaminophen 02/12/2020 12:00:00 AM EDT ORAL active [facility] ([facility]) Magnesium 02/07/2020 12:00:00 AM EDT active [facility] ([facility]) atorvastatin 20 MG Oral Tablet Atorvastatin Calcium 12/10/2019 1 2:00:00 AM EDT ORAL completed [facility] ([facility]) Insurance Providers Payer name Policy type / Coverage type Policy ID Covered alliance party ID Covered alliance party's relationship to pizano Policy P[place] Plan Information [facility] [id number] SP [id number] [facility] [id number] SP [id number] [facility] [id number] SP [id number] [employer] Compensation [id number] Self [id number] [employer] Workers Compensation [id number] Self [id number] [employer] Workers Compensation [id number] .[id number] Self [id number] [employer] Workers Compensation [id number] Self [employer] Workers Compensation [id number] Self [id number] [employer] Workers Compensation [id number] .840.1.278327.3.227.99.4595.7992.0 Self [id number] [employer] Workers Compensation [id number] 2.16.840.1.438859.3.227.99.991.414610.0 Self [id number] [employer] Workers Compensation [id number] 2.16.840.1.858914.3.227.99.991.958825.0 Self [id number] [employer] Workers Compensation [id number] 2.16.840.1.349613.3.227.99.991.742993.0 Self [id number] [employer] Workers Compensation [id number] 2.16.840.1.814827.3.227.99.991.208480.0 Self [id number] [facility] [employer] (NF) Workers Compensation 2.16.840.1.898888.3.227.99.991.042426.0 Self [employer] Workers Compensation [id number] Self [id number] [employer]) Workers Compensation [id number] Self [id number] [employer]) Workers Compensation [id number] Self [id number] [employer] Workers Compensation [id number] Self [id number] [employer] Workers Compensation [id number] 2.16.840.1.278368.3.227.99.991.201400.0 Self [id number] [employer] ([employer]) Workers Compensation [id number] 2.16.840.1.099844.3.227.99.991.145610.0 Self [id number] [employer]) Workers Compensation [id number] 2.16.840.1.206697.3.227.99.991.987082.0 Self [id number] [facility] [employer] (NF) Workers Compensation [id number] 2.16.840.1.259643.3.227.99.991.228966.0 Self [id number] [facility] [employer] (NF) Workers Compensation [id number] 2.16.840.1.331131.3.227.99.991.632489.0 Self [id number] [facility] [employer] (NF) Workers Compensation [id number] 2.16.840.1.366272.3.227.99.991.933608.0 Self [id number] [facility] [employer] (NF) Workers Compensation [id number] 2.16.840.1.112390.3.227.99.991.910682.0 Self [id number] [employer] (pr) Medigap Part B [id number] 2.16.840.1.813576.3.227.99 .991.183572.0 Self [id number] [employer] (pr) Medigap Part B [id number] Self [id number] [employer] (pr) Medigap Part B [id number] 2.16840.1.720045.3.227.99 .991.663099.0 Self [id number] [employer] (pr) Medigap Part B [id number] 2.16.840.1.417068.3.227.99 .991.355482.0 Self [id number] [employer] (pr) Medigap Part B [id number] 2.16.840.1.293768.3.227.99 .991.677697.0 Self [id number] [employer] (pr) Medigap Part B [id number] 2.16.840.1.276634.3.227.99 .991.261751.0 Self [id number] [employer] (pr) Medigap Part B [id number] 2.16.840.1.873558.3.227.99 .991.525039.0 Self [id number] [employer] (pr) Commercial [id number] Self [employer] (pr) Medigap Part B [id number] 2.16.840.1.312852.3.227.99 .991.719120.0 Self [id number] [employer] (pr) Medigap Part B [id number] 2.16.840.1.961916.3.227.99 .991.604271.0 Self [id number] [employer] (pr) Medigap Part B [id number] 2.16.840.1.213216.3.227.99 .991.910858.0 Self [id number] [employer] (pr) Medigap Part B [id number] 2.16.840.1.219217.3.227.99 .991.543665.0 Self [id number] [employer] (pr) Medigap Part B [id number] 2.16.840.1.174636.3.227.99 .991.731759.0 Self [id number] [employer] (pr) Medigap Part B [id number] Self [id number] [employer] (pr) Medigap Part B [id number] Self [id number] [employer] (pr) Medigap Part B [id number] Self [id number] [employer] Workers Compensation 2.16.840.1.861290.3.227.99.991.454030.0 Self [employer] Workers Compensation [id number] Self [id number] [employer]) Workers Compensation 2.16.840.1.214159.3.227.99.991.905126.0 Self [employer] Workers Compensation [id number] Self [id number] UMR U [id number] Self [id number] UMR [facility] [id number] SP [id number] UMR [id number] Jessie [id number] UMR [id number] xxxxxxxxx [id number] Umr (New [employer]) Commercial [id number] 2.0.1.731508.3.227.9 9.4595.7992.0 Self [id number] Umr (pr) Commercial [id number] Self [id number] UMR U [id number] Self [id number] [employer] COMP [id number] SP [id number] UMR O [id number] S [id number] UMR CO [id number] 18 [id number] Umr Commercial [id number] Self [id number] [facility] Part B [id number] 2.0.1.636362.3.227.99.4595.7992.0 Self 0 [id number] [employer] (Old) Medigap Part B [id number] 2.840.1.542829.3.227 .99.4595.7992.0 Self [id number] [facility] Med[facility] Part B [id number] 2.840.1.558415.3.227.99.4595.7992.0 Self 0 [id number] [employer] (Old) Medigap Part B [id number] 2.840.1.174328.3.227 .99.4595.7992.0 Self [id number] Umr/Uhc/[employer] Health Maintenance Organization (HMO) [id number] 2.16.840.1.883999.3.227.99.1767.212.0 Self [id number] [id number] [employer]mr/[employer] Health Maintenance Organization (HMO) [id number] 2.16.840.1.274393.3.227.99.1767.212.0 Self [id number] Umr/Uhc/[employer] Health Maintenance Organization (HMO) [id number] 2.16.840.1.710813.3.227.99.1767.212.0 Self [id number] [id number] Umr/Uhc/[employer] Health Maintenance Organization (HMO) [id number] 2.16.840.1.348129.3.227.99.1767.212.0 Self Y1 [id number] UMR O [id number] S [id number] UMR O [id number] S [id number] 300 [employer] Medigap Part B [id number] 2.16.840.1.098128.3.227.99.4595.7992.0 Self 0 [id number] [employer] (Old) Medigap Part B [id number] 2.16.840.1.432197.3.227 .99.4595.7992.0 Self [id number] UMR O [id number] S [id number] [employer] PPO O [id number] S [id number] [employer] Medigap Part B [id number] 2.16.840.1.137719.3.227.99.4595.7992.0 Self 0 [id number] [employer] Ppo Commercial [id number] 2.16.840.1.108939.3.227.99.4595.7992.0 Self [id number] [employer] COMP [id number] SP [id number] [facility]/[place] [employer] Medigap Part B [id number] 2.16.840.1.667170.3.227.99.4595.7992.0 Self 0 [id number] [employer] Ppo Commercial [id number] 2.16.840.1.652717.3.227.99.4595.7992.0 Self [id number] [employer] Commercial [id number] 2.16.840.1.634856.3.227.99.1767.212.0 S elf [id number] [employer] O [id number] S [id number] [employer] AD[employer] WORK COMP [id number] SP [id number] [facility] [employer] Medigap Part B [id number] Self [employer] Ppo Commercial [id number] Self [employer] [id number] SP [id number] [employer] Commercial 226 Self Problems, Conditions, and Diagnoses Code Display Name Description Problem Type Effective Dates Data Source(s) R06.00 Dyspnea, unspecified Dyspnea, unspecified Diagnosis 02/04/2021 07:10:16 AM EDT [facility] C50.312 Malignant neoplasm of lower-inner quadra nt of female breast Malignant neoplasm of lower-inner quadrant of female breast Problem 12/2019 12:00:00 AM EDT [facility] ([facility]) E66.3 Overweight Overweight Problem 02/07/2020 12:00:00 AM ED T [facility] ([facility]) E55.9 Vitamin D deficiency Vitamin D deficiency Problem 02/07/2020 12:00:00 AM EDT [facility] ([facility]) E78.00 Pure hypercholesterolemia Pure hypercholesterolemia Pr oblem 02/07/2020 12:00:00 AM EDT [facility] ([facility]) R03.0 Elevated blood-pressure reading without diagnosis of hypertension Elevated blood-pressure reading without diagnosis of hypertension Problem 02/07/2020 12:00:00 AM EDT [facility] ([facility]) Surgeries/Procedures Procedure Description Date Indications Data Source(s) OFFICE OUTPATIENT VISIT 25 MINUTES 01/26/2021 12:00:00 AM EDT [facility] ([facility]) Bone Mineral Density Test 12/24/2020 12:00:00 AM EDT [facility] ([facility]) Mammogram 12/24/2020 12:00:00 AM EDT M EDENT ([facility]) ECG ROUTINE ECG W/LEAST 12 LDS W/I&R 12/10/2020 12:00: 00 AM EDT [facility] ([facility]) Brief Emotional/Behav Assessment W/ Scoring Doc Per Standard Inst 12/10/2020 12:00:00 AM EDT [facility] ([facility] ) PERIODIC PREVENTIVE MED EST PATIENT 65YRS&> 12/10/2020 12:00:00 AM EDT [facility] ([facility]) Transplant Tendon Forearm/Wrist 03/13/2020 12:00:00 AM EST [facility] ([facility]) Arthroplasty Interposition IC/CM JTS 03/13/2020 12:00: 00 AM EST [facility] ([facility]) ECG ROUTINE ECG W/LEAST 12 LDS W/I&R 02/07/2020 12:00: 00 AM EDT [facility] ([facility]) Results ID Date Data Source [id number] 01/17/2021 09:28:00 AM EDT [facility] ([facility]) Name Value Range Interpretation Code Description Data Irma rce(s) Supporting Document(s) Triglycerides Level 84 mg/dL [facility] ([facility]) Cholesterol Level 192 mg/dL [facility] ([facility]) LDL Cholesterol 91 mg/dL [facility] ([facility]) HDL Cholesterol 84 mg/dL [facility] ([facility]) Non-HDL-C 108 mg/dL [facility] Cholesterol Risk Ratio 2.285 [facility] ([facility]) ID Date Data Source [id number] 01/17/2021 09:28:00 AM EDT [facility] ([facility]) Name Value Range Interpretation Code Description Data Irma rce(s) Supporting Document(s) Glucose, Fasting 86 mg/dL 70-100 [facility] ([facility]) Blood Urea Nitrogen 19 mg/dL 7-18 [facility] ([facility]) Glomerular Filtration Rate Laboratory [facility]) <content>Units are mL/min/1.73 m2</content>
<content></content>
<content>Chronic Kidney Disease Staging per NKF:</content>
<content></content>
<content>Stage I & II GFR >=60 Normal to Mildly Decreased</content>
<content>Stage III GFR 30-59 Moderately Decreased</content>
<content>Stage IV GFR 15-29 Severely Decreased</content>
<content>Stage V GFR <15 Very Little GFR Left</content>
<content>ESRD GFR <15 on METAPHYSICIAN</content>
<content></content> Creatinine For GFR 0.89 mg/dL 0.55-1.30 [facility] ([facility]) Sodium Level 141 meq/L 136-145 [facility] ([facility]) Potassium Serum 4.4 meq/L 3.5-5.1 [facility] ([facility]) Chloride Level 106 meq/L 98-107 [facility] ([facility]) Carbon Dioxide Level 29 meq/L 21-32 [facility] ([facility]) Anion Gap 6 meq/L 8-16 [facility] Calcium Level 8.7 mg/dL 8.8-10.2 [facility] ([facility]) Ast/Sgot 20 U/L 7-37 [facility]) Alt/SGPT 19 U/L 12-78 [facility] Alkaline Phosphatase 49 U/L 45-117 [facility] ([facility]) Bilirubin,Total 0.6 mg/dL 0.2-1.0 [facility] ([facility]) Total Protein 5.9 GM/DL 6.4-8.2 [facility] ([facility]) Albumin 3.3 GM/DL 3.2-5.2 [facility] Albumin/Globulin Ratio 1.3 1.2-2.2 [facility] ([facility]) ID Date Data Source [id number] 12/25/2020 11:34:00 AM EDT [facility] Name Value Range Interpretation Code Description Data Irma rce(s) Supporting Document(s) Hemoglobin.gastrointestinal [Presence] in Stool by Imm unologic method Laboratory test result [facility] ID Date Data Source [id number] 12/09/2020 07:51:00 AM EDT [facility] Name Value Range Interpretation Code Description Data Irma rce(s) Supporting Document(s) Calcidiol [Mass/volume] in Serum or Plasma 59.7 ng/mL 24.0-80.0 [facility] This test was performed using FastPack I P Vitamin D immunoassay kit. Values obtained with different assay methods should not be used interchangeably. ID Date Data Source [id number] 12/09/2020 07:50:00 AM EDT [facility] Name Value Range Interpretation Code Description Data Irma rce(s) Supporting Document(s) Cobalamin (Vitamin B12) [Mass/volume] in Serum or Plasma 1003 pg/mL 2 47-911 [facility] VITAMIN B12 NORMAL RANGE NORMAL 247 - 911 PG/ML INDETERMINATE 211 - 246 PG/ML DEFICIENT LESS THAN 211 PG/ML ID Date Data Source [id number] 12/09/2020 07:50:00 AM EDT [facility] Name Value Range Interpretation Code Description Data Irma rce(s) Supporting Document(s) Magnesium 2.3 mg/dL 1.8-2.4 [facility]) ID Date Data Source [id number] 12/09/2020 07:50:00 AM EDT [facility] Name Value Range Interpretation Code Description Data Irma rce(s) Supporting Document(s) Thyrotropin [Units/volume] in Serum or Plasma by Detec tion limit <= 0.05 mIU/L 1.34 uIU/mL 0.36-3.74 [facility] ([facility] ) ID Date Data Source [id number] 12/09/2020 07:50:00 AM EDT [facility] ([facility]) Name Value Range Interpretation Code Description Data Irma rce(s) Supporting Document(s) Cholesterol [Mass/volume] in Serum or Plasma 282 mg/dL 131-200 [facility] ([facility]) Triglyceride [Mass/volume] in Serum or Plasma 101 mg/dL 30-150 [facility] ([facility]) Cholesterol in HDL [Mass/volume] in Serum or Plasma 76 mg/dL 35-60 [facility] ([facility]) Cholesterol in LDL [Mass/volume] in Serum or Plasma by calcu lation 186 CALC 50-159 [facility] ([facility]) ID Date Data Source [id number] 12/09/2020 07:50:00 AM EDT [facility] ([facility]) Name Value Range Interpretation Code Description Data Irma rce(s) Supporting Document(s) Glucose [Mass/volume] in Serum or Plasma 89 mg/dL 74-99 [facility] ([facility]) 100-125 mg/dL PRE-DIABETES/FASTING >126 mg/dL DIABETES/FASTING Urea nitrogen [Mass/volume] in Serum or Plasma 20 mg/dL 7-18 [facility] ([facility]) Sodium [Moles/volume] in Serum or Plasma 142 meq/L 136-145 [facility] ([facility]) Creatinine 1.0 mg/dL 0.6-1.3 [facility] Chloride [Moles/volume] in Serum or Plasma 104 meq/L 98-107 [facility] ([facility]) Potassium [Moles/volume] in Serum or Plasma 4.1 meq/L 3.5-5.1 [facility] ([facility]) Carbon dioxide, total [Moles/volume] in Serum or Plasma 29 meq/L 21 -32 [facility] ([facility]) Calcium [Mass/volume] in Serum or Plasma 9.6 mg/dL 8.5-10.1 [facility] ([facility]) Glomerular filtration rate/1.73 sq M pre dicted among non-blacks [Volume Rate/Area] in Serum or Plasma by Creatinine-based formula (MDRD) 55 mL/min [facility] ([facility]) Glomerular filtration rate/1.73 sq M pre dicted among blacks [Volume Rate/Area] in Serum or Plasma by Creatinine-based formula (MDRD) Laboratory test result [facility] <content>CHRONIC KIDNEY DISEASE STAGING PER NKF</content>
<content></content>
<content>STAGE I & II GFR >= 60 NORMAL TO MILDLY DECREASED</content>
<content>STAGE III GFR 30-59 MODERATELY DECREASED</content>
<content>STAGE IV GFR 15-29 SEVERELY DECREASED</content>
<content>STAGE V GFR <15 VERY LITTLE GFR LEFT</content>
<content>ESRD GFR <15 ON METAPHYSICIAN</content>
<content></content> ID Date Data Source [id number] 12/09/2020 07:50:00 AM EDT [facility] ([facility]) Name Value Range Interpretation Code Description Data Irma rce(s) Supporting Document(s) Erythrocytes [#/volume] in Blood by Automated count 4.76 x10*6/UL 4.2 0-6.30 [facility] ([facility]) Hemoglobin [Mass/volume] in Blood 14.8 g/dL 12.0-18.0 [facility] ([facility]) Leukocytes [#/volume] in Blood by Automated count 4.2 x10*3/UL 4.1-10 .9 [facility] Hematocrit [Volume Fraction] of Blood by Automated count 43.7 % 3 7.0-51.0 [facility] ([facility]) MCV 91.8 fL 80.0-97.0 [facility] MCH 31.1 pg 26.0-32.0 [facility] ([facility]) Platelets [#/volume] in Blood by Automated count 240 x10*3/UL 140-440 [facility] MCHC 33.9 g/dL 31.0-38.0 [facility] Erythrocyte distribution width [Ratio] by Automated count 12.8 % 11.6-13.7 [facility] ([facility]) Lymph % 33.6 % 10.0-58.5 [facility] MPV 7.7 FL 7.8-11.0 [facility] Neut % 59.4 % 37.0-92.0 [facility]) Mid % 7.0 % 1.7-9.3 [facility] Lymph # 1.4 x10*3/UL 0.6-4.1 [facility] ([facility]) Neut # 2.5 x10*3/UL 2.0-7.8 [facility] ([facility]) Mid # 0.3 x10*3/UL 0.1-0.6 [facility] ([facility]) ID Date Data Source [id number] 04/23/2020 08:17:00 AM EST [facility] ([facility]) Name Value Range Interpretation Code Description Data Irma rce(s) Supporting Document(s) Cholesterol [Mass/volume] in Serum or Plasma 308 mg/dL 131-200 [facility] ([facility]) Triglyceride [Mass/volume] in Serum or Plasma 115 mg/dL 30-150 [facility] ([facility]) Cholesterol in HDL [Mass/volume] in Serum or Plasma 90 mg/dL 35-60 [facility] ([facility]) Cholesterol in LDL [Mass/volume] in Serum or Plasma by calcu lation 195 CALC 50-159 [facility] ([facility]) ID Date Data Source [id number] 04/23/2020 08:17:00 AM EST [facility] ([facility]) Name Value Range Interpretation Code Description Data Irma rce(s) Supporting Document(s) Glucose [Mass/volume] in Serum or Plasma 72 mg/dL 74-99 [facility] ([facility]) 100-125 mg/dL PRE-DIABETES/FASTING >126 mg/dL DIABETES/FASTING Urea nitrogen [Mass/volume] in Serum or Plasma 21 mg/dL 7-18 [facility] ([facility]) Creatinine 1.0 mg/dL 0.6-1.3 [facility] Potassium [Moles/volume] in Serum or Plasma 4.1 meq/L 3.5-5.1 [facility] ([facility]) Sodium [Moles/volume] in Serum or Plasma 140 meq/L 136-145 [facility] ([facility]) Calcium [Mass/volume] in Serum or Plasma 9.3 mg/dL 8.5-10.1 [facility] ([facility]) Carbon dioxide, total [Moles/volume] in Serum or Plasma 31 meq/L 21 -32 [facility] ([facility]) Chloride [Moles/volume] in Serum or Plasma 103 meq/L 98-107 [facility] ([facility]) Glomerular filtration rate/1.73 sq M pre dicted among non-blacks [Volume Rate/Area] in Serum or Plasma by Creatinine-based formula (MDRD) 56 mL/min [facility] ([facility]) Glomerular filtration rate/1.73 sq M pre dicted among blacks [Volume Rate/Area] in Serum or Plasma by Creatinine-based formula (MDRD) Laboratory test result [facility] ([facility]) <content>CHRONIC KIDNEY DISEASE STAGING PER NKF</content>
<content></content>
<content>STAGE I & II GFR >= 60 NORMAL TO MILDLY DECREASED</content>
<content>STAGE III GFR 30-59 MODERATELY DECREASED</content>
<content>STAGE IV GFR 15-29 SEVERELY DECREASED</content>
<content>STAGE V GFR <15 VERY LITTLE GFR LEFT</content>
<content>ESRD GFR <15 ON METAPHYSICIAN</content>
<content></content> ID Date Data Source [id number] 03/08/2020 12:00:00 PM EST [facility] Name Value Range Interpretation Code Description Data Irma rce(s) Supporting Document(s) SARS coronavirus 2 RNA [facility] This lab was ordered by [facility] and reported by [facility]. ID Date Data Source [id number] 02/07/2020 10:56:00 AM EDT [facility] ([facility]) Name Value Range Interpretation Code Description Data Irma rce(s) Supporting Document(s) Rheumatoid Factor Quant Laboratory test result [facility]) ID Date Data Source [id number] 02/07/2020 10:56:00 AM EDT [facility]) Name Value Range Interpretation Code Description Data Irma rce(s) Supporting Document(s) Antinuclear Antibodies Direct Laboratory test result [facility] ([facility]) Performed at: RN - [facility] [address] [id number] [place] [employer]: Shala Nam MD, Phone: [phone] ID Date Data Source [id number] 02/07/2020 10:56:00 AM EDT [facility] ([facility]) Name Value Range Interpretation Code Description Data Irma rce(s) Supporting Document(s) C reactive protein [Mass/volume] in Serum or Plasma by High sensitivity method Laboratory test result 0.00-0.30 [facility] ([facility]) ID Date Data Source [id number] 02/07/2020 10:54:00 AM EDT [facility]) Name Value Range Interpretation Code Description Data Irma rce(s) Supporting Document(s) Thyrotropin [Units/volume] in Serum or Plasma by Detec tion limit <= 0.05 mIU/L 1.15 uIU/mL 0.36-3.74 [facility] ([facility] ) Creatine kinase [Enzymatic activity/volume] in Serum or Plasma 100 U/L 26-192 [facility] ([facility]) ID Date Data Source [id number] 02/07/2020 10:54:00 AM EDT [facility] ([facility]) Name Value Range Interpretation Code Description Data Irma rce(s) Supporting Document(s) Triglyceride [Mass/volume] in Serum or Plasma 128 mg/dL 30-150 [facility] ([facility]) Cholesterol in HDL [Mass/volume] in Serum or Plasma 91 mg/dL 35-60 [facility] ([facility]) Cholesterol [Mass/volume] in Serum or Plasma 291 mg/dL 131-200 [facility] ([facility]) Cholesterol in LDL [Mass/volume] in Serum or Plasma by calcu lation 174 CALC 50-159 [facility] ([facility]) ID Date Data Source [id number] 02/07/2020 10:54:00 AM EDT [facility] ([facility]) Name Value Range Interpretation Code Description Data Irma rce(s) Supporting Document(s) Erythrocyte sedimentation rate by Westergren method 5 mm/hr 0-15 [facility] ([facility]) ID Date Data Source [id number] 02/07/2020 10:54:00 AM EDT [facility] ([facility]) Name Value Range Interpretation Code Description Data Irma rce(s) Supporting Document(s) Erythrocytes [#/volume] in Blood by Automated count 4.79 x10*6/UL 4.2 0-6.30 [facility] ([facility]) Leukocytes [#/volume] in Blood by Automated count 4.6 x10*3/UL 4.1-10 .9 [facility] ([facility]) Hemoglobin [Mass/volume] in Blood 15.1 g/dL 12.0-18.0 [facility] ([facility]) MCH 31.5 pg 26.0-32.0 [facility] ([facility]) MCV 91.0 fL 80.0-97.0 [facility] ([facility]) Hematocrit [Volume Fraction] of Blood by Automated count 43.6 % 3 7.0-51.0 [facility] ([facility]) Platelets [#/volume] in Blood by Automated count 233 x10*3/UL 140-440 [facility] ([facility]) MCHC 34.6 g/dL 31.0-38.0 [facility] ([facility]) Erythrocyte distribution width [Ratio] by Automated count 12.5 % 11.6-13.7 [facility] ([facility]) MPV 7.4 FL 7.8-11.0 [facility] Lymph % 25.1 % 10.0-58.5 [facility] ([facility]) Mid % 6.1 % 1.7-9.3 [facility] ([facility]) Lymph # 1.1 x10*3/UL 0.6-4.1 [facility] ([facility]) Neut % 68.8 % 37.0-92.0 [facility] ([facility]) Mid # 0.4 x10*3/UL 0.1-0.6 [facility] ([facility]) Neut # 3.1 x10*3/UL 2.0-7.8 [facility]) Procedure Social History No Information Vital Signs ID Date Data Source UNK Name Value Range Interpretation Code Description Data Source(s) Systolic blood pressure 112 mm[Hg] 112 mm[Hg] [facility] RT Arm Diastolic blood pressure 68 mm[Hg] 68 mm[Hg] [facility] ([facility]) RT Arm Heart rate 80 /min 80 /min [facility] ([facility]) Body height 66.75 [in_i] 66.75 [in_i] [facility] ([facility]) 5'6.75" Body weight 182.00 [lb_av] 182.00 [lb_av] [facility] T ([facility]) Body mass index (BMI) [Ratio] 28.7 kg/m2 28.7 k g/m2 [facility] ([facility]) Body mass index (BMI) [Ratio] 29.1 kg/m2 29.1 k g/m2 [facility] ([facility]) Systolic blood pressure 132 mm[Hg] 132 mm[Hg] [facility] RT Arm Oxygen saturation in Arterial blood by Pulse oximetry --post exerci se 95 % 95 % [facility] RM Air Diastolic blood pressure 90 mm[Hg] 90 mm[Hg] [facility] ([facility]) RT Arm Heart rate 76 /min 76 /min [facility]) Body height 66.75 [in_i] 66.75 [in_i] [facility] ([facility]) 5'6.75" Body weight 184.38 [lb_av] 184.38 [lb_av] [facility] Systolic blood pressure 128 mm[Hg] 128 mm[Hg] [facility]) LT Arm Diastolic blood pressure 86 mm[Hg] 86 mm[Hg] [facility] ([facility]) LT Arm Heart rate 88 /min 88 /min [facility]) Body height 66.75 [in_i] 66.75 [in_i] [facility] ([facility]) 5'6.75" Body weight 187.50 [lb_av] 187.50 [lb_av] [facility] ([facility]) Body mass index (BMI) [Ratio] 29.6 kg/m2 29.6 k g/m2 [facility] ([facility]) Body height 67 [in_i] 67 [in_i] [facility] ([facility]) 5'7" Body temperature 96.8 [degF] 96.8 [degF] [facility] ([facility]) Body weight 180.00 [lb_av] 180.00 [lb_av] [facility] ([facility]) Body mass index (BMI) [Ratio] 28.2 kg/m2 28.2 k g/m2 [facility] ([facility] Heart rate 79 /min 79 /min [facility] ([facility]) Body height 66.75 [in_i] 66.75 [in_i] [facility] ([facility]) 5'6.75" Systolic blood pressure 170 mm[Hg] 170 mm[Hg] [facility] RT Arm Diastolic blood pressure 90 mm[Hg] 90 mm[Hg] [facility] ([facility]) RT Arm Systolic blood pressure 140 mm[Hg] 140 mm[Hg] [facility] Diastolic blood pressure 88 mm[Hg] 88 mm[Hg] [facility] ([facility]) Body weight 184.00 [lb_av] 184.00 [lb_av] [facility] T ([facility]) Oxygen saturation in Arterial blood by Pulse oximetry --post exerci se 98 % 98 % [facility] ([facility]) RM Air Body mass index (BMI) [Ratio] 29.0 kg/m2 29.0 k g/m2 [facility] ([facility])
--- NOTE | 2021-04-02 17:11 | REP ---
INDICATION: Syncope/near-syncope. COMPARISON: 12/10/2020. TECHNIQUE: Single portable AP view of the chest was performed. FINDINGS: There is no acute infiltrate or pulmonary edema. Lungs are clear. The heart is not significantly enlarged. The mediastinal silhouette is unremarkable. The visualized osseous structures are intact. IMPRESSION: No acute pulmonary disease. <Electronically signed by Mars Lofton > 04/02/21 [id number]
--- NOTE | 2021-04-02 17:39 | REPVR ---
PROCEDURE INFORMATION: Exam: CT Head Without Contrast Exam date and time: 04/02/2021 5:09 PM Age: 65 years old Clinical indication: Syncope and collapse TECHNIQUE: Imaging protocol: Computed tomography of the head without contrast. Radiation optimization: All CT scans at this facility use at least one of these dose optimization techniques: automated exposure control; mA and/or kV adjustment per patient size (includes targeted exams where dose is matched to clinical indication); or iterative reconstruction. COMPARISON: MRI-Brain W/O FOLL BY WITH 06/11/2019 5:45 PM FINDINGS: Brain: No acute intracranial hemorrhage, cerebral edema, or midline shift. Cerebral ventricles: No hydrocephalus. Paranasal sinuses: There is no acute sinusitis. Mastoid air cells: Visualized mastoid air cells are well aerated. Orbital cavity: Unremarkable as visualized. Bones/joints: No acute fracture. Soft tissues: Unremarkable. IMPRESSION: No acute intracranial abnormality. Electronically signed by: Eriberto Hammond On 04/02/2021 17:39:20 PM
[2021-04-02 18:21] LABS: BASO % 0.4 % (0.0-1.0); EOS # 0.1 10^3/uL (0.0-0.5); EOS % 1.2 % (0.0-3.0); HEMATOCRIT 43.1 % (36.0-47.0); HEMOGLOBIN 14.1 g/dl (12.0-15.5); LYMPH # 2.2 10^3/uL (1.5-5.0); MEAN CORPUSCULAR HEMOGLOBIN 31.4 pg (27.0-33.0); MEAN CORPUSCULAR HGB CONC 32.7 g/dl (32.0-36.5); MONO # 0.6 10^3/uL (0.0-0.8); MONO % 8.1 % (2.0-8.0); NEUTROPHILS # 4.7 10^3/uL (1.5-8.5); PLATELET COUNT, AUTOMATED 233 10^3/uL (150-450); RED BLOOD COUNT 4.49 10^6/uL (4.00-5.40); WHITE BLOOD COUNT 7.6 10^3/uL (4.0-10.0)
[2021-04-02 18:39] LABS: RSV AMPLIFICATION NEGATIVE (NEGATIVE)
[2021-04-02 18:41] LABS: AMPHETAMINES LEVEL URINE NEGATIVE (NEGATIVE); BARBITURATES URINE NEGATIVE (NEGATIVE); BENZODIAZEPINES URINE NEGATIVE (NEGATIVE); CANNABINOIDS URINE NEGATIVE (NEGATIVE); COCAINE METABOLITE URINE NEGATIVE (NEGATIVE); METHADONE URINE NEGATIVE (NEGATIVE); OPIATES URINE NEGATIVE (NEGATIVE); PHENCYCLIDINE URINE NEGATIVE (NEGATIVE)
[2021-04-02 18:59] LABS: BLOOD UREA NITROGEN 19 MG/DL (7-18); CALCIUM LEVEL 9.1 MG/DL (8.8-10.2); CARBON DIOXIDE LEVEL 32 MEQ/L (21-32); CHLORIDE LEVEL 106 MEQ/L (98-107); CREATININE FOR GFR 0.95 MG/DL (0.55-1.30); ETHYL ALCOHOL (ETHANOL) < 0.003 % (0.000-0.010); GLOMERULAR FILTRATION RATE > 60.0 (>45); GLUCOSE, FASTING 97 MG/DL (70-100); MAGNESIUM LEVEL 2.4 MG/DL (1.8-2.4); SODIUM LEVEL 143 MEQ/L (136-145)
[2021-04-02] MEDS ORDERED: ISOVUE-370 76% 100ML VIAL As Ordered ONE (19:20)
--- NOTE | 2021-04-02 20:44 | REPVR ---
PROCEDURE INFORMATION: Exam: CTA Chest With Contrast Exam date and time: 04/02/2021 7:32 PM Age: 65 years old Clinical indication: Pain; Chest pressure; Additional info: Chest pain/syncope TECHNIQUE: Imaging protocol: Computed tomographic angiography of the chest with contrast. 3D rendering (Not supervised by radiologist): MIP and/or 3D reconstructed images were created by the technologist. Radiation optimization: All CT scans at this facility use at least one of these dose optimization techniques: automated exposure control; mA and/or kV adjustment per patient size (includes targeted exams where dose is matched to clinical indication); or iterative reconstruction. Contrast material: ISOVUE 370; Contrast volume: 75 ml; Contrast route: INTRAVENOUS (IV); COMPARISON: CR PORTABLE CHEST X-RAY 04/02/2021 5:01 PM FINDINGS: Pulmonary arteries: Normal. No pulmonary emboli. Aorta: Unremarkable. No aortic aneurysm. No aortic dissection. Lungs: Mild interstitial scarring in the lingula. Lungs are otherwise clear. No airspace infiltrates or masses. Pleural spaces: No pneumothorax. No pleural effusion. Heart: Unremarkable. No cardiomegaly. No pericardial effusion. Lymph nodes: Unremarkable. No enlarged lymph nodes. Bones/joints: Unremarkable. No acute fracture. Soft tissues: Unremarkable. IMPRESSION: No acute findings. No pulmonary embolism. Electronically signed by: Rubin Drake On 04/02/2021 20:44:32 PM
[2021-04-02] MEDS ORDERED: DOCUSATE SODIUM 100MG CAPSULE PO SCH (21:00)
[2021-04-02] MEDS ORDERED: ACETAMINOPHEN TAB 650MG DOSE (2X325MG) PO PRN (22:45)
--- OUTSIDE RECORDS SUMMARY | 2021-04-02 23:03 | CCD ---
Author Author [facility] Organization [facility] Address Unknown Phone Unavailable Care Team Providers Care Device Repair Technician Name Role Phone Inés Greene MD Unavailable [...] MD Unavailable Unavailable JcInés MD Unavailable Unavailable JcInsé MD Unavailable Unavailable JcInés MD Unavailable Unavailable [...] Renetta Boston MD Unavailable Unavailable Vaneenenaam, Renetta oBston MD Unavailable Unavailable Vaneenenaam, Renetta Boston MD [...] is protected by Article 27-F of the [facility] Public Health law. If you continue you may have access to information: Regarding HIV / AIDS; Provided by facilities licensed or operated by the [facility] Office of Mental Health; or Provided by the [facility] Office for People With Developmental Disabilities. If such information is present, then the following [facility] mandated warning applies: This information has been [...] law may result in a fine or alf sentence or both. A general authorization for the release of medical or other information is NOT sufficient authorization for further disc losure. Family History Family Member Name Family Member Gender Family Member Status Date o f Status Description Data Source(s) Unknown Male Problem [facility] ([facility]) Unknown Female Problem [facility] ([facility]) Unknown Female Problem [facility] ([facility]) Unknown Female Problem [facility] ([facility]) Unknown Female Problem [facility] ([facility]) Unknown Female Problem [facility] ([facility]) Encounters Encounter Providers Location Date Indications Data Source(s ) Outpatient Referrer: Danielle [email or web address] 09/2020 12:00:00 AM EDT - 02/04/2021 10:47:[address] [facility] Outpatient Attender: Danielle Hull 01:30:00 PM EDT [facility] ([facility] ) Outpatient Attender: Danielle Hull 10:30:00 AM EDT [facility] ([facility] ) Outpatient Attender: Danielle Hull 01:00:00 PM EST [facility] ([facility] ) Office Visit Attender: Renetta Reeder MD Physical Therap y 04/21/2020 08:30:00 AM EST [facility] ([facility]) Office Visit Attender: Renetta Reeder MD Physical Therap y 03/25/2020 09:30:00 AM EST [facility] ([facility]) Outpatient Attender: Danielle Hull 10:00:00 AM EDT [facility] ([facility] ) Immunizations Vaccine Date Status Description Data Source(s) COVID-19 VACCINE Pfizer 01/30/2021 12:00:00 AM EDT completed [facility] Vaccine Series Complete: YESThis Data wa s Submitted to [facility]. This CVX code allows reporting of a vacc ination when formulation is unknown (for example, when recording a Influenza vaccination when noted on a vaccination card) 12/30/2020 01:39:00 PM EDT completed MEDEN T ([facility]) Tdap 12/10/2020 11:43:00 AM EDT completed M EDENT ([facility]) COVID-19 VACCINE Pfizer 07/20/2020 12:00:00 AM EDT completed [facility] Vaccine Series Complete: YESThis Data wa s Submitted to [facility]. COVID-19 VACCINE Pfizer 06/29/2020 12:00:00 AM EST completed [facility] Vaccine Series Complete: NOThis Data was Submitted to [facility]. Medications Medication Brand Name Start Date Product Form Dose Route Admi nistrative Instructions Pharmacy Instructions Status Indications Reaction Description Data Source(s) Immunization Adminstration,1 Vaccine/Toxoid 12/10/2020 12:00 :00 AM EDT completed [facility] ([facility]) Medication administered onsite Kelp 12/10/2020 12:00:00 AM EDT active [facility] ([facility]) coenzyme Q10 100 MG Oral Capsule Co Q 10 12/10/2020 12:00:00 AM EDT ORAL active MED[facility] ([facility]) Rosuvastatin calcium 5 MG Oral Tablet Rosuvastatin Calcium 0 12/10/2020 12:00:00 AM EDT ORAL active [facility] ([facility]) Citalopram 20 MG Oral Tablet Citalopram Hydrobromide 12/10/2020 12:00:00 AM EDT ORAL active [facility] ( [facility]) gabapentin 100 MG Oral Capsule Gabapentin 12/10/2020 12:00:00 AM EDT ORAL completed [facility] ([facility]) Acetaminophen 325 MG / Hydrocodone Bitartrate 5 MG Ora l Tablet Hydrocodone-Acetaminophen 02/12/2020 12:00:00 AM EDT ORAL active MED[facility] ([facility]) Magnesium 02/07/2020 12:00:00 AM EDT active MED[facility] ([facility]) atorvastatin 20 MG Oral Tablet Atorvastatin Calcium 12/10/2019 1 2:00:00 AM EDT ORAL completed [facility] ([facility]) Insurance Providers Payer name Policy type / Coverage type Policy ID Covered green party ID Covered green party's relationship to pizano Policy Pizano Plan Information [facility] [id number] SP [id number] [facility] [id number] SP [id number] [facility] [id number] SP [id number] [employer] Workers Compensation [id number] Self [id number] [employer] Workers Compensation [id number] Self [id number] [employer] Workers Compensation [id number] .[id number] Self [id number] [employer] Workers Compensation [id number] Self Alexei [employer] Administ[employer] Workers Compensation [id number] Self 1 [id number] [employer] Workers Compensation [id number] .840.1.398865.3.227.99.4595.7992.0 Self [id number] [employer] Workers Compensation [id number] 2.16.840.1.133523.3.227.99.991.976252.0 Self [id number] [employer] Workers Compensation [id number] 2.16.840.1.466912.3.227.99.991.344007.0 Self [id number] [employer]) Workers Compensation [id number] 2.16.840.1.291066.3.227.99.991.005650.0 Self [id number] [employer] (NF) Workers Compensation [id number] 2.16.840.1.704993.3.227.99.991.976170.0 Self [id number] [facility] [employer] (NF) Workers Compensation 2.16.840.1.211465.3.227.99.991.051502.0 Self [employer] Workers Compensation [id number] Self [id number] [employer]) Workers Compensation [id number] Self [id number] [employer]) Workers Compensation [id number] Self [id number] [employer]) Workers Compensation [id number] Self [id number] [employer]NF) Workers Compensation [id number] 2.16.840.1.156090.3.227.99.991.214887.0 Self [id number] [employer]NF) Workers Compensation [id number] 2.16.840.1.348440.3.227.99.991.560584.0 Self [id number] [employer] (NF) Workers Compensation [id number] 2.16.840.1.354584.3.227.99.991.534979.0 Self [id number] [facility] [employer] (NF) Workers Compensation [id number] 2.16.840.1.134286.3.227.99.991.297213.0 Self [id number] [facility] [employer] (NF) Workers Compensation [id number] 2.16.840.1.716164.3.227.99.991.671515.0 Self [id number] [facility] [employer] (NF) Workers Compensation [id number] 2.16.840.1.737709.3.227.99.991.483589.0 Self [id number] [facility] [employer] (NF) Workers Compensation [id number] 2.16.840.1.373303.3.227.99.991.052494.0 Self [id number] [employer] (pr) Medigap Part B [id number] 2.16.840.1.609629.3.227.99 .991.522646.0 Self [id number] [employer] (pr) Medigap Part B [id number] Self [id number] [employer] (pr) Medigap Part B [id number] 2.16840.1.028053.3.227.99 .991.578173.0 Self [id number] [employer] (pr) Medigap Part B [id number] 2.16.840.1.215331.3.227.99 .991.353663.0 Self [id number] [employer] (pr) Medigap Part B [id number] 2.16.840.1.071760.3.227.99 .991.883799.0 Self [id number] [employer] (pr) Medigap Part B [id number] 2.16.840.1.740369.3.227.99 .991.273469.0 Self [id number] [employer] (pr) Medigap Part B [id number] 2.16.840.1.763480.3.227.99 .991.852115.0 Self [id number] [employer] (pr) Commercial [id number] Self [employer] (pr) Medigap Part B [id number] 2.16.840.1.977324.3.227.99 .991.980468.0 Self [id number] [employer] (pr) Medigap Part B [id number] 2.16.840.1.458306.3.227.99 .991.988385.0 Self [id number] [employer] (pr) Medigap Part B [id number] 2.16.840.1.492967.3.227.99 .991.779845.0 Self [id number] [employer] (pr) Medigap Part B [id number] 2.16.840.1.485980.3.227.99 .991.379068.0 Self [id number] [employer] (pr) Medigap Part B [id number] 2.16.840.1.720236.3.227.99 .991.641754.0 Self [id number] [employer] (pr) Medigap Part B [id number] Self [id number] [employer] (pr) Medigap Part B [id number] Self [id number] [employer] (pr) Medigap Part B [id number] Self [id number] [employer] (WC) Workers Compensation 2.16.840.1.932199.3.227.99.991.122693.0 Self [employer] (WC) Workers Compensation [id number] Self [id number] [employer] (WC) Workers Compensation 2.16.840.1.897749.3.227.99.991.082990.0 Self [employer] (WC) Workers Compensation [id number] Self [id number] UMR U [id number] Self [id number] UMR [facility] [id number] SP [id number] UMR [id number] Jessie [id number] UMR [id number] xxxxxxxxx [id number] Umr (New [employer]) Commercial [id number] 2.0.1.437734.3.227.9 9.4595.7992.0 Self [id number] Umr (pr) Commercial [id number] Self [id number] UMR U [id number] Self [id number] [employer] CLAIM ADMIN WORK COMP [id number] SP [id number] UMR O [id number] S [id number] UMR CO [id number] 18 [id number] Umr Commercial [id number] Self [id number] [facility] Part B [id number] 2.0.1.053988.3.227.99.4595.7992.0 Self 0 [id number] [employer] (Old) Medigap Part B [id number] 2.840.1.126301.3.227 .99.4595.7992.0 Self [id number] [facility] Medigap Part B [id number] 2.840.1.699635.3.227.99.4595.7992.0 Self 0 [id number] [employer]/Umr (Old) Medigap Part B [id number] 2.840.1.589511.3.227 .99.4595.7992.0 Self [id number] Umr/Uhc/[employer] Maintenance [employer] (HMO) [id number] 2.16.840.1.226486.3.227.99.1767.212.0 Self [id number] [id number] Umr/[employer] Health Maintenance Organization (HMO) [id number] 2.16.840.1.117244.3.227.99.1767.212.0 Self [id number] Umr/Uhc[employer] Health Maintenance Organization (HMO) [id number] 2.16.840.1.563990.3.227.99.1767.212.0 Self [id number] [id number] Umr/Uhc/[employer] Maintenance Organization (HMO) [id number] 2.16.840.1.914163.3.227.99.1767.212.0 Self Y1 [id number] UMR O [id number] S [id number] UMR O [id number] S [id number] [employer] Medigap Part B [id number] 2.16.840.1.803186.3.227.99.4595.7992.0 Self 0 [id number] [employer] (Old) Medigap Part B [id number] 2.16.840.1.011072.3.227 .99.4595.7992.0 Self [id number] UMR O [id number] S [id number] [employer] PPO O [id number] S [id number] [employer] Medigap Part B [id number] 2.16.840.1.024160.3.227.99.4595.7992.0 Self 0 [id number] [employer] Ppo Commercial [id number] 2.16.840.1.492148.3.227.99.4595.7992.0 Self [id number] A[employer]I CLAIM ADMIN WORK COMP [id number] SP [id number] [facility] [employer] Medigap Part B [id number] 2.16.840.1.190283.3.227.99.4595.7992.0 Self 0 [id number] [employer] Ppo Commercial [id number] 2.16.840.1.580716.3.227.99.4595.7992.0 Self [id number] [employer] Commercial [id number] 2.16.840.1.432792.3.227.99.1767.212.0 S elf [id number] [employer] O [id number] S [id number] ALEXEI CLAIM ADMIN WORK COMP [id number] SP [id number] [facility] [employer] Medigap Part B [id number] Self [employer] Ppo Commercial [id number] Self [employer] [id number] SP [id number] [employer] Commercial 226 Self Problems, Conditions, and Diagnoses Code Display Name Description Problem Type Effective Dates Data Source(s) R06.00 Dyspnea, unspecified Dyspnea, unspecified Diagnosis 02/04/2021 07:10:[address] [facility] C50.312 Malignant neoplasm of lower-inner quadra nt of female breast Malignant neoplasm of lower-inner quadrant of female breast Problem 12/2019 12:00:00 AM EDT MED[facility] ([facility]) E66.3 Overweight Overweight Problem 02/07/2020 12:00:00 AM ED T [facility] ([facility]) E55.9 Vitamin D deficiency Vitamin D deficiency Problem 02/07/2020 12:00:00 AM EDT [facility] ([facility]) E78.00 Pure hypercholesterolemia Pure hypercholesterolemia Pr oblem 02/07/2020 12:00:00 AM EDT [facility] ([facility]) R03.0 Elevated blood-pressure reading without diagnosis of hypertension Elevated blood-pressure reading without diagnosis of hypertension Problem 02/07/2020 12:00:00 AM EDT [facility] ([facility]) Surgeries/Procedures Procedure Description Date Indications Data Source(s) OFFICE OUTPATIENT VISIT 25 MINUTES 01/26/2021 12:00:00 AM EDT [facility] ([facility]) Bone Mineral Density Test 12/24/2020 12:00:00 AM EDT [facility] ([facility]) Mammogram 12/24/2020 12:00:00 AM EDT M EDENT ([facility]) ECG ROUTINE ECG W/LEAST 12 LDS W/I&R 12/10/2020 12:00: 00 AM EDT [facility] ([facility]) Brief Emotional/Behav Assessment W/ Scoring Doc Per Standard Inst 12/10/2020 12:00:00 AM EDT MED[facility] ([facility] ) PERIODIC PREVENTIVE MED EST PATIENT 65YRS&> 12/10/2020 12:00:00 AM EDT [facility] ([facility]) Transplant Tendon Forearm/Wrist 03/13/2020 12:00:00 AM EST [facility] ([facility]) Arthroplasty Interposition IC/CM JTS 03/13/2020 12:00: 00 AM EST [facility] ([facility]) ECG ROUTINE ECG W/LEAST 12 LDS W/I&R 02/07/2020 12:00: 00 AM EDT [facility] ([facility]) Results ID Date Data Source [id number] 04/02/2021 09:44:00 PM EST MED[facility] ([facility]) Name Value Range Interpretation Code Description Data Irma rce(s) Supporting Document(s) Troponin I.cardiac [Mass/volume] in Serum or Plasma Laboratory test result [facility] ([facility]) Laboratory test finding (navigational concept) 0.01 ng/mL 0.00-0.08 [facility] ([facility]) ID Date Data Source [id number] 04/02/2021 06:24:00 PM EST [facility] ([facility]) Name Value Range Interpretation Code Description Data Irma rce(s) Supporting Document(s) Laboratory test finding (navigational concept) 0.01 ng/mL 0.00-0.08 [facility] ([facility]) Troponin I.cardiac [Mass/volume] in Serum or Plasma Laboratory test result [facility] ([facility]) ID Date Data Source [id number] 04/02/2021 05:50:00 PM EST [facility] ([facility]) Name Value Range Interpretation Code Description Data Irma rce(s) Supporting Document(s) Magnesium [Moles/volume] in Serum or Plasma 2.4 mg/dL 1.8-2.4 [facility] ([facility]) Ethanol [Mass/volume] in Serum or Plasma Laboratory test result 0.000 -0.010 [facility] Thyrotropin [Units/volume] in Serum or Plasma by Detec tion limit <= 0.05 mIU/L 1.450 uIU/ML 0.358-3.740 [facility] ) Thyroxine (T4) free [Mass/volume] in Serum or Plasma 1.10 ng/dL 0.76- 1.46 [facility]) ID Date Data Source [id number] 04/02/2021 05:50:00 PM EST [facility] ([facility]) Name Value Range Interpretation Code Description Data Irma rce(s) Supporting Document(s) Glucose, Fasting 97 mg/dL 70-100 [facility] Blood Urea Nitrogen 19 mg/dL 7-18 [facility] ([facility]) Glomerular Filtration Rate Laboratory test result [facility]) <content>Units are mL/min/1.73 m2</content>
<content></content>
<content>Chronic Kidney Disease Staging per NKF:</content>
<content></content>
<content>Stage I & II GFR >=60 Normal to Mildly Decreased</content>
<content>Stage III GFR 30- 59 Moderately Decreased</content>
<content>Stage IV GFR 15-29 Severely Decreased</content>
<content>Stage V GFR <15 Very Little GFR Left</content>
<content>ESRD GFR <15 on AREA DIRECTOR</content>
<content></content> Creatinine For GFR 0.95 mg/dL 0.55-1.30 [facility] Sodium Level 143 meq/L 136-145 [facility] ([facility]) Chloride Level 106 meq/L 98-107 [facility] ([facility] Potassium Serum 4.0 meq/L 3.5-5.1 [facility] ([facility]) Carbon Dioxide Level 32 meq/L 21-32 [facility] Anion Gap 5 meq/L 8-16 [facility] Calcium Level 9.1 mg/dL 8.8-10.2 [facility] ([facility]) ID Date Data Source [id number] 04/02/2021 05:50:00 PM EST [facility] ([facility]) Name Value Range Interpretation Code Description Data Irma rce(s) Supporting Document(s) Amphetamines Level Urine Laboratory test result [facility] ([facility]) Barbiturates Urine Laboratory test result [facility] ([facility]) Benzodiazepines Urine Laboratory test result [facility] ([facility]) Cannabinoids Urine Laboratory test result [facility] ([facility]) Methadone Urine Laboratory test result [facility] Cocaine Metabolite Urine Laboratory test result [facility] ([facility]) Opiates Urine Laboratory test result [facility] Phencyclidine Urine Laboratory test result [facility] ([facility]) ALL PRESUMPTIVE POSITIVE FINDINGS AR E UNCONFIRMED THRESHOLD IN NG/ML AMPHETAMINES/METHAMPHET 1000 BARBITURATES 200 BENZODIAZEPINES 200 CANNABINOIDS (THC) 50 COCAINE METABOLITE 300 METHADONE 300 OPIATES 300 PHENCYCLIDINE 25 RESULTS ARE FOR MEDICAL PURPOSES ONLY. ALL URINE SPECIMENS WILL BE SAVED FOR 3 DAYS. IF CONFIRMATION OF A PRESUMPTIVE POSITIVE SCREEN RESULT IS DESIRED, CALL CHEMISTRY ([phone]) AND REQUEST URINE TO BE SENT TO REFERENCE LAB. FOR A LIST OF CLOSELY RELATED COMPOUNDS PLEASE CALL THE LAB. ID Date Data Source [id number] 04/02/2021 05:50:00 PM EST [facility] ([facility]) Name Value Range Interpretation Code Description Data Irma rce(s) Supporting Document(s) Influenza A Amplification Laboratory test result [facility] Negative results do not preclude influen za or RSV virus infection and should not be used as the sole basis for treatment or other patient management decisions. Influenza B Amplification Laboratory test result [facility] ([facility]) Negative results do not preclude influen za or RSV virus infection and should not be used as the sole basis for treatment or other patient management decisions. RSV Amplification Laboratory test result [facility] ([facility]) Negative results do not preclude influen za or RSV virus infection and should not be used as the sole basis for treatment or other patient management decisions. Laboratory test finding (navigational concept) Laboratory test result [facility] ([facility]) A false negative result may occur if a s pecimen is improperly collected, transported or handled. False negative results may also occur if inadequate numbers of organisms are present in the specimen. As with any molecular test, mutations within the target regions of Xpert Xpress SARS-CoV-2 could affect primer and/or probe binding resulting in failure to detect the presence of virus. This test cannot rule out diseases caused by other bacterial or viral pathogens. ASSAY INFORMATION: Real time RT-PCR test. DISCLAIMER: Testing was performed using the [employer] SARS-CoV-2 test. This test was developed and its performance characteristics determined by [employer]. This test has not been FDA cleared or approved. This test has been authorized by FDA under an Emergency Use Authorization (EUA). This test is only authorized for the duration of time the declaration that circumstances exist justifying the authorization of the emergency use of in vitro diagnostic tests for detection of SARS-CoV-2 virus and/or diagnosis of COVID-19 infection under section 564(b)(1) of the Act, 21 U.S.C. 360bbb-3(b)(1), unless the authorization is terminated or revoked sooner. ID Date Data Source [id number] 04/02/2021 05:50:00 PM EST [facility] ([facility] Name Value Range Interpretation Code Description Data Irma rce(s) Supporting Document(s) White Blood Count 7.6 10 4.0-10.0 [facility] ([facility]) Red Blood Count 4.49 10 4.00-5.40 [facility]) Hemoglobin 14.1 g/dL 12.0-15.5 [facility] ([facility]) Hematocrit 43.1 % 36.0-47.0 [facility] ([facility]) Mean Corpuscular Volume 96.0 fl 80.0-96.0 [facility] ([facility]) Mean Corpuscular Hemoglobin 31.4 pg 27.0-33.0 ME DENT ([facility]) Mean Corpuscular HGB Conc 32.7 g/dL 32.0-36.5 MEDE NT ([facility]) Red Cell Distribution Width 11.9 % 11.5-14.5 ME [facility] ([facility]) Platelet Count, Automated 233 10 150-450 MED[facility] NT ([facility]) Lymph % 29.0 % 24.0-44.0 [facility] Neutrophils % 61.0 % 36.0-66.0 [facility] ([facility]) [place] % 8.1 % 2.0-8.0 [facility] Baso % 0.4 % 0.0-1.0 [facility] Eos % 1.2 % 0.0-3.0 [facility] Nucleated Red Blood Cell % 0.0 % 0-0 MED [facility] ([facility]) Immature Granulocyte % 0.3 % 0-3.0 [facility] ([facility]) Neutrophils # 4.7 10 1.5-8.5 [facility] ([facility]) [place] # 0.6 10 0.0-0.8 [facility] Lymph # 2.2 10 1.5-5.0 [facility] Eos # 0.1 10 0.0-0.5 [facility] Baso # 0.0 10 0.0-0.2 [facility] ID Date Data Source [id number] 01/17/2021 09:28:00 AM EDT [facility] ([facility]) Name Value Range Interpretation Code Description Data Irma rce(s) Supporting Document(s) Triglycerides Level 84 mg/dL [facility] ([facility]) Cholesterol Level 192 mg/dL [facility] ([facility]) LDL Cholesterol 91 mg/dL [facility] ([facility]) HDL Cholesterol 84 mg/dL [facility] ([facility]) Non-HDL-C 108 mg/dL [facility] ([facility]) Cholesterol Risk Ratio 2.285 [facility] ([facility]) ID Date Data Source [id number] 01/17/2021 09:28:00 AM EDT [facility] ([facility]) Name Value Range Interpretation Code Description Data Irma rce(s) Supporting Document(s) Blood Urea Nitrogen 19 mg/dL 7-18 [facility] ([facility]) Glucose, Fasting 86 mg/dL 70-100 [facility] ([facility]) Sodium Level 141 meq/L 136-145 [facility] ([facility]) Glomerular Filtration Rate Laboratory test result [facility] ([facility]) <content>Units are mL/min/1.73 m2</content>
<content></content>
<content>Chronic Kidney Disease Staging per NKF:</content>
<content></content>
<content>Stage I & II GFR >=60 Normal to Mildly Decreased</content>
<content>Stage III GFR 30- 59 Moderately Decreased</content>
<content>Stage IV GFR 15-29 Severely Decreased</content>
<content>Stage V GFR <15 Very Little GFR Left</content>
<content>ESRD GFR <15 on AREA DIRECTOR</content>
<content></content> Creatinine For GFR 0.89 mg/dL 0.55-1.30 [facility] ([facility]) Chloride Level 106 meq/L 98-107 [facility] ([facility]) Potassium Serum 4.4 meq/L 3.5-5.1 [facility] ([facility]) Carbon Dioxide Level 29 meq/L 21-32 [facility] ([facility]) Anion Gap 6 meq/L 8-16 [facility] ([facility] Calcium Level 8.7 mg/dL 8.8-10.2 [facility] ([facility]) Ast/Sgot 20 U/L 7-37 [facility] ([facility]) Alt/SGPT 19 U/L 12-78 [facility] ([facility]) Alkaline Phosphatase 49 U/L 45-117 [facility] ([facility]) Bilirubin,Total 0.6 mg/dL 0.2-1.0 [facility] ([facility]) Total Protein 5.9 GM/DL 6.4-8.2 [facility] Albumin 3.3 GM/DL 3.2-5.2 [facility] Albumin/Globulin Ratio 1.3 1.2-2.2 [facility]) ID Date Data Source [id number] 12/25/2020 11:34:00 AM EDT [facility]) Name Value Range Interpretation Code Description Data Irma rce(s) Supporting Document(s) Hemoglobin.gastrointestinal [Presence] in Stool by Imm unologic method Laboratory test result [facility] ID Date Data Source [id number] 12/09/2020 07:51:00 AM EDT [facility] Name Value Range Interpretation Code Description Data Irma rce(s) Supporting Document(s) Calcidiol [Mass/volume] in Serum or Plasma 59.7 ng/mL 24.0-80.0 [facility] This test was performed using [employer] I P Vitamin D immunoassay kit. Values obtained with different assay methods should not be used interchangeably. ID Date Data Source [id number] [facility] Name Value Range Interpretation Code Description Data Irma rce(s) Supporting Document(s) Thyrotropin [Units/volume] in Serum or Plasma by Detec tion limit <= 0.05 mIU/L 1.34 uIU/mL 0.36-3.74 [facility] ID Date Data Source [id number] 12/09/2020 07:50:00 AM EDT [facility] ([facility] Name Value Range Interpretation Code Description Data Irma rce(s) Supporting Document(s) Cholesterol [Mass/volume] in Serum or Plasma 282 mg/dL 131-200 [facility] ([facility]) Cholesterol in HDL [Mass/volume] in Serum or Plasma 76 mg/dL 35-60 [facility] ([facility]) Triglyceride [Mass/volume] in Serum or Plasma 101 mg/dL 30-150 [facility] ([facility]) Cholesterol in LDL [Mass/volume] in Serum or Plasma by calcu lation 186 CALC 50-159 [facility] ([facility]) ID Date Data Source [id number] 12/09/2020 07:50:00 AM EDT [facility] ([facility]) Name Value Range Interpretation Code Description Data Irma rce(s) Supporting Document(s) Glucose [Mass/volume] in Serum or Plasma 89 mg/dL 74-99 [facility] ([facility]) 100-125 mg/dL PRE-DIABETES/FASTING >126 mg/dL DIABETES/FASTING Urea nitrogen [Mass/volume] in Serum or Plasma 20 mg/dL 7-18 [facility] ([facility]) Creatinine 1.0 mg/dL 0.6-1.3 [facility] ([facility]) Potassium [Moles/volume] in Serum or Plasma 4.1 meq/L 3.5-5.1 [facility] ([facility]) Sodium [Moles/volume] in Serum or Plasma 142 meq/L 136-145 [facility] ([facility]) Chloride [Moles/volume] in Serum or Plasma 104 meq/L 98-107 [facility] ([facility]) Carbon dioxide, total [Moles/volume] in Serum or Plasma 29 meq/L 21 -32 [facility] ([facility]) Glomerular filtration rate/1.73 sq M pre dicted among blacks [Volume Rate/Area] in Serum or Plasma by Creatinine-based formula (MDRD) Laboratory test result [facility] <content>CHRONIC KIDNEY DISEASE STAGING PER NKF</content>
<content></content>
<content>STAGE I & II GFR >= 60 NORMAL TO MILDLY DECREASED</content>
<content>STAGE III GFR 30-59 MODERATELY DECREASED</content>
<content>STAGE IV GFR 15-29 SEVERELY DECREASED</content>
<content>STAGE V GFR <15 VERY LITTLE GFR LEFT</content>
<content>ESRD GFR <15 ON AREA DIRECTOR</content>
<content></content> Calcium [Mass/volume] in Serum or Plasma 9.6 mg/dL 8.5-10.1 [facility] ([facility] Glomerular filtration rate/1.73 sq M pre dicted among non-blacks [Volume Rate/Area] in Serum or Plasma by Creatinine-based formula (MDRD) 55 mL/min [facility] ID Date Data Source [id number] 12/09/2020 07:50:00 AM EDT [facility] ([facility] Name Value Range Interpretation Code Description Data Irma rce(s) Supporting Document(s) Erythrocytes [#/volume] in Blood by Automated count 4.76 x10*6/UL 4.2 0-6.30 [facility] ([facility] Leukocytes [#/volume] in Blood by Automated count 4.2 x10*3/UL 4.1-10 .9 [facility] ([facility] Hematocrit [Volume Fraction] of Blood by Automated count 43.7 % 3 7.0-51.0 [facility] ([facility] Hemoglobin [Mass/volume] in Blood 14.8 g/dL 12.0-18.0 [facility] ([facility]) MCV 91.8 fL 80.0-97.0 [facility] ([facility]) MCHC 33.9 g/dL 31.0-38.0 [facility] ([facility]) MCH 31.1 pg 26.0-32.0 [facility] ([facility]) Erythrocyte distribution width [Ratio] by Automated count 12.8 % 11.6-13.7 [facility] ([facility]) Lymph % 33.6 % 10.0-58.5 [facility] ([facility]) Platelets [#/volume] in Blood by Automated count 240 x10*3/UL 140-440 [facility] ([facility] MPV 7.7 FL 7.8-11.0 [facility] Neut % 59.4 % 37.0-92.0 [facility] ([facility]) Mid % 7.0 % 1.7-9.3 [facility] ([facility]) Mid # 0.3 x10*3/UL 0.1-0.6 [facility] ([facility]) Lymph # 1.4 x10*3/UL 0.6-4.1 [facility] ([facility]) Neut # 2.5 x10*3/UL 2.0-7.8 [facility] ([facility]) ID Date Data Source [id number] 12/09/2020 07:50:00 AM EDT [facility] ([facility]) Name Value Range Interpretation Code Description Data Irma rce(s) Supporting Document(s) Cobalamin (Vitamin B12) [Mass/volume] in Serum or Plasma 1003 pg/mL 2 47-911 [facility] ([facility]) VITAMIN B12 NORMAL RANGE NORMAL 247 - 911 PG/ML INDETERMINATE 211 - 246 PG/ML DEFICIENT LESS THAN 211 PG/ML ID Date Data Source [id number] 12/09/2020 07:50:00 AM EDT [facility] ([facility]) Name Value Range Interpretation Code Description Data Irma rce(s) Supporting Document(s) Magnesium 2.3 mg/dL 1.8-2.4 [facility] ([facility]) ID Date Data Source [id number] 04/23/2020 08:17:00 AM EST [facility] ([facility]) Name Value Range Interpretation Code Description Data Irma rce(s) Supporting Document(s) Cholesterol [Mass/volume] in Serum or Plasma 308 mg/dL 131-200 [facility] ([facility]) Triglyceride [Mass/volume] in Serum or Plasma 115 mg/dL 30-150 [facility] ([facility]) Cholesterol in HDL [Mass/volume] in Serum or Plasma 90 mg/dL 35-60 [facility] ([facility]) Cholesterol in LDL [Mass/volume] in Serum or Plasma by calcu lation 195 CALC 50-159 [facility] ([facility]) ID Date Data Source [id number] 04/23/2020 08:17:00 AM EST [facility] ([facility]) Name Value Range Interpretation Code Description Data Irma rce(s) Supporting Document(s) Glucose [Mass/volume] in Serum or Plasma 72 mg/dL 74-99 [facility] ([facility]) 100-125 mg/dL PRE-DIABETES/FASTING >126 mg/dL DIABETES/FASTING Urea nitrogen [Mass/volume] in Serum or Plasma 21 mg/dL 7-18 [facility] ([facility]) Creatinine 1.0 mg/dL 0.6-1.3 [facility] ([facility]) Potassium [Moles/volume] in Serum or Plasma 4.1 meq/L 3.5-5.1 [facility] ([facility]) Sodium [Moles/volume] in Serum or Plasma 140 meq/L 136-145 [facility] ([facility]) Calcium [Mass/volume] in Serum or Plasma 9.3 mg/dL 8.5-10.1 [facility] ([facility]) Carbon dioxide, total [Moles/volume] in Serum or Plasma 31 meq/L 21 -32 [facility] ([facility]) Chloride [Moles/volume] in Serum or Plasma 103 meq/L 98-107 [facility] ([facility]) Glomerular filtration rate/1.73 sq M pre dicted among non-blacks [Volume Rate/Area] in Serum or Plasma by Creatinine-based formula (MDRD) 56 mL/min [facility] Glomerular filtration rate/1.73 sq M pre dicted among blacks [Volume Rate/Area] in Serum or Plasma by Creatinine-based formula (MDRD) Laboratory test result [facility] ([facility] <content>CHRONIC KIDNEY DISEASE STAGING PER NKF</content>
<content></content>
<content>STAGE I & II GFR >= 60 NORMAL TO MILDLY DECREASED</content>
<content>STAGE III GFR 30-59 MODERATELY DECREASED</content>
<content>STAGE IV GFR 15-29 SEVERELY DECREASED</content>
<content>STAGE V GFR <15 VERY LITTLE GFR LEFT</content>
<content>ESRD GFR <15 ON AREA DIRECTOR</content>
<content></content> ID Date Data Source [id number] 03/08/2020 12:00:00 PM EST [facility] Name Value Range Interpretation Code Description Data Irma rce(s) Supporting Document(s) SARS coronavirus 2 RNA [facility] This lab was ordered by [facility] and reported by [facility]. ID Date Data Source [id number] 02/07/2020 10:56:00 AM EDT [facility] ([facility]) Name Value Range Interpretation Code Description Data Irma rce(s) Supporting Document(s) Rheumatoid Factor Quant Laboratory test [facility] ID Date Data Source [id number] 02/07/2020 10:56:00 AM EDT [facility] ([facility]) Name Value Range Interpretation Code Description Data Irma rce(s) Supporting Document(s) Antinuclear Antibodies Direct Laboratory test result [facility] ([facility]) Performed at: [facility] [place] [id number] [employer] Agent: Shala Nam MD, Phone: [phone] ID Date Data Source [id number] 02/07/2020 10:56:00 AM EDT [facility] ([facility]) Name Value Range Interpretation Code Description Data Irma rce(s) Supporting Document(s) C reactive protein [Mass/volume] in Serum or Plasma by High sensitivity method Laboratory test result 0.00-0.30 [facility] ID Date Data Source [id number] 02/07/2020 10:54:00 AM EDT [facility] ([facility]) Name Value Range Interpretation Code Description Data Irma rce(s) Supporting Document(s) Thyrotropin [Units/volume] in Serum or Plasma by Detec tion limit <= 0.05 mIU/L 1.15 uIU/mL 0.36-3.74 [facility] Creatine kinase [Enzymatic activity/volume] in Serum or Plasma 100 U/L 26-192 [facility] ([facility]) ID Date Data Source [id number] 02/07/2020 10:54:00 AM EDT [facility] ([facility]) Name Value Range Interpretation Code Description Data Irma rce(s) Supporting Document(s) Triglyceride [Mass/volume] in Serum or Plasma 128 mg/dL 30-150 [facility] ([facility]) Cholesterol in HDL [Mass/volume] in Serum or Plasma 91 mg/dL 35-60 [facility] ([facility]) Cholesterol [Mass/volume] in Serum or Plasma 291 mg/dL 131-200 [facility] ([facility]) Cholesterol in LDL [Mass/volume] in Serum or Plasma by calcu lation 174 CALC 50-159 [facility] ([facility] ID Date Data Source [id number] 02/07/2020 10:54:00 AM EDT [facility] ([facility]) Name Value Range Interpretation Code Description Data Irma rce(s) Supporting Document(s) Erythrocyte sedimentation rate by Westergren method 5 mm/hr 0-15 [facility] ([facility] ID Date Data Source [id number] 02/07/2020 10:54:00 AM EDT [facility] ([facility]) Name Value Range Interpretation Code Description Data Irma rce(s) Supporting Document(s) Erythrocytes [#/volume] in Blood by Automated count 4.79 x10*6/UL 4.2 0-6.30 [facility] ([facility] Leukocytes [#/volume] in Blood by Automated count 4.6 x10*3/UL 4.1-10 .9 [facility] ([facility]) Hemoglobin [Mass/volume] in Blood 15.1 g/dL 12.0-18.0 [facility] ([facility]) MCH 31.5 pg 26.0-32.0 [facility] ([facility]) MCV 91.0 fL 80.0-97.0 [facility] ([facility]) Hematocrit [Volume Fraction] of Blood by Automated count 43.6 % 3 7.0-51.0 [facility] ([facility] Platelets [#/volume] in Blood by Automated count 233 x10*3/UL 140-440 [facility] ([facility] MCHC 34.6 g/dL 31.0-38.0 [facility] ([facility]) Erythrocyte distribution width [Ratio] by Automated count 12.5 % 11.6-13.7 [facility] ([facility]) MPV 7.4 FL 7.8-11.0 [facility]) Lymph % 25.1 % 10.0-58.5 [facility]) Mid % 6.1 % 1.7-9.3 [facility]) Lymph # 1.1 x10*3/UL 0.6-4.1 [facility] ([facility]) Neut % 68.8 % 37.0-92.0 [facility] Mid # 0.4 x10*3/UL 0.1-0.6 [facility] ([facility]) Neut # 3.1 x10*3/UL 2.0-7.8 [facility] ([facility]) Procedure Social History No Information Vital Signs ID Date Data Source UNK Name Value Range Interpretation Code Description Data Source(s) Systolic blood pressure 112 mm[Hg] 112 mm[Hg] [facility] RT Arm Diastolic blood pressure 68 mm[Hg] 68 mm[Hg] [facility] ([facility]) RT Arm Heart rate 80 /min 80 /min [facility] ([facility]) Body height 66.75 [in_i] 66.75 [in_i] [facility] 5'6.75" Body weight 182.00 [lb_av] 182.00 [lb_av] [facility] ([facility]) Body mass index (BMI) [Ratio] 28.7 kg/m2 28.7 k g/m2 [facility] ([facility]) Oxygen saturation in Arterial blood by Pulse oximetry --post exerci se 95 % 95 % [facility] ([facility]) RM Air Body mass index (BMI) [Ratio] 29.1 kg/m2 29.1 k g/m2 [facility] ([facility]) Body weight 184.38 [lb_av] 184.38 [lb_av] [facility] T ([facility]) Systolic blood pressure 132 mm[Hg] 132 mm[Hg] M [facility] ([facility]) RT Arm Diastolic blood pressure 90 mm[Hg] 90 mm[Hg] [facility] ([facility]) RT Arm Heart rate 76 /min 76 /min [facility] ([facility]) Body height 66.75 [in_i] 66.75 [in_i] [facility] ([facility]) 5'6.75" Body weight 187.50 [lb_av] 187.50 [lb_av] [facility] T ([facility]) Heart rate 88 /min 88 /min [facility] ([facility]) Body height 66.75 [in_i] 66.75 [in_i] [facility] ([facility]) 5'6.75" Systolic blood pressure 128 mm[Hg] 128 mm[Hg] M [facility] ([facility]) LT Arm Diastolic blood pressure 86 mm[Hg] 86 mm[Hg] [facility] ([facility]) LT Arm Body mass index (BMI) [Ratio] 29.6 kg/m2 29.6 k g/m2 [facility] ([facility]) Body height 67 [in_i] 67 [in_i] [facility] ([facility]) 5'7" Body temperature 96.8 [degF] 96.8 [degF] [facility] ([facility]) Body weight 180.00 [lb_av] 180.00 [lb_av] [facility] T ([facility]) Body mass index (BMI) [Ratio] 28.2 kg/m2 28.2 k g/m2 [facility] ([facility] Heart rate 79 /min 79 /min [facility] ([facility]) Body height 66.75 [in_i] 66.75 [in_i] [facility] ([facility]) 5'6.75" Systolic blood pressure 170 mm[Hg] 170 mm[Hg] M [facility] ([facility]) RT Arm Diastolic blood pressure 90 mm[Hg] 90 mm[Hg] [facility] ([facility]) RT Arm Systolic blood pressure 140 mm[Hg] 140 mm[Hg] M [facility] ([facility]) Diastolic blood pressure 88 mm[Hg] 88 mm[Hg] [facility] ([facility]) Body weight 184.00 [lb_av] 184.00 [lb_av] [facility] ([facility]) Oxygen saturation in Arterial blood by Pulse oximetry --post exerci se 98 % 98 % [facility] ([facility]) RM Air Body mass index (BMI) [Ratio] 29.0 kg/m2 29.0 k g/m2 [facility] ([facility])
--- NOTE | 2021-04-02 23:19 | HPEPDOC ---
[facility] Medical History & Physical Date of Admission Apr 02, 2021 Date of Service: Apr 02, 2021 Primary Care Physician: Danielle Garcia Attending Physician: LUCILLE WINN MD History and Physical CHIEF COMPLAINT: Syncopal event HISTORY OF PRESENT ILLNESS: Patient is a 65-year-old female with a history of syncopal episodes in the past who presents following a syncopal episode at work. 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 She went to the nurses office and lay down at which point she states she passed out once or twice for a few seconds. She states this has been happening intermittently for the last couple of years. She had a stress test in November where she apparently passed out after 4 minutes, but is unsure if they found anything of significance. She also has an event monitor in place however the event monitor itself was not charged at the time. She was brought to the emergency department following her syncopal event with unremarkable CBC, BMP, magnesium, thyroid studies, troponins, unchanged EKG, negative head CT, negative chest angiogram, negative chest x-ray. The ED physician spoke with Dr. Holt her cashier greeter who recommended admission for 24 hours of observation on telemetry. 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 Admits to occasional alcohol use Denies marijuana, heroin, cocaine, PCP, or other illicit drug use. 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 REVIEW OF SYSTEMS: Constitutional: Denies fevers, chills, night sweats, or recent unexpected weight change HEENT: Denies headaches, head trauma, no visual changes or eye pain, denies nosebleeds or difficulty swallowing. Cardiovascular: Denies chest pain, palpitations, or orthopnea. Respiratory: Denies cough, wheezing, or shortness of breath GI: Denies nausea, vomiting, abdominal pain, diarrhea, or constipation : Denies pain with urination or frequency Musculoskeletal: Denies joint pain or swelling Neuro/psych: Denies muscle weakness or sensory loss Skin: Denies skin rashes HOME MEDICATIONS: Please see below. PHYSICAL EXAMINATION: VITAL SIGNS: See below GENERAL APPEARANCE: Well-appearing female standing up on my entering the room comfortable and in no acute distress HEENT: NC, AT, EOMI, no scleral icterus, moist mucous membranes, no pharyngeal erythema. CARDIOVASCULAR: RRR, normal S1-S2. No murmurs, gallops, rubs. LUNGS: CTAB with full breath sounds, no wheezes, crackles, or rhonchi. ABDOMEN: Soft, nontender, nondistended, bowel sounds present. No hepatosplenomegaly. No masses or ecchymosis. No CVA tenderness. EXTREMITIES: No swelling or edema NEUROLOGICAL: No focal or sensory deficits. CN II-XII grossly intact. PSYCHIATRIC: Anxious mood and affect LABORATORY DATA: See below. IMAGIN04/02/2021 chest x-ray: "IMPRESSION: No acute pulmonary disease." 04/02/[address]: "IMPRESSION: No acute intracranial abnormality." 04/02/2021 CT angiogram chest: "IMPRESSION: No acute findings. No pulmonary embolism." MICROBIOLOGY: Please see below. Assessment/Plan: #. Syncope 06/03 vasovagal vs orthostatic hypotension vs arrhythmia vs panic attack Suspect vasovagal given that the symptoms typically come on when she is standing up, the ophthalmic medical technician also administered her stress test in November and feels she may have had a panic attack at that time rather than a true cardiac event CT head, CTA chest negative, EKG unchanged from prior, trops negative. Echo performed in ED at bedside results pending. Will obtain orthostats and monitor on telemetry overnight. At time of examination patient is VERY frustrated that she needs to be admitted, we discussed the reason for the admission and she was ultimately amenable, but again frustrated with wait times and the lack of answers. #. L-sided breast cancer -Continue anastrazole #. Depression -Continue citalopram DVT prophylaxis: teds/seqs Disposition:Observation, anticipate DC after 24 hours of telemetry Vital Signs Vital Signs Date Time Temp Pulse Resp B/P (MAP) Pulse Ox O2 Delivery O2 Flow Rate FiO2 04/02/21 22:31 143/76 (98) 04/02/21 22:30 85 17 98 Room Air 04/02/21 19:54 97.9 Laboratory Data Labs 24H Laboratory Tests 2 04/02/21 17:50: Immature Granulocyte % (Auto) 0.3, Neutrophils (%) (Auto) 61.0, Lymphocytes (%) (Auto) 29.0, Monocytes (%) (Auto) 8.1H, Eosinophils (%) (Auto) 1.2, Basophils (%) (Auto) 0.4, Neutrophils # (Auto) 4.7, Lymphocytes # (Auto) 2.2, Monocytes # (Auto) 0.6, Eosinophils # (Auto) 0.1, Basophils # (Auto) 0.0, Nucleated Red Blood Cells % (auto) 0.0, Anion Gap 5L, Glomerular Filtration Rate > 60.0, Calcium Level 9.1, Magnesium Level 2.4, Thyroid Stimulating Hormone (TSH) 1.450, Free Thyroxine 1.10, Urine Opiates Screen NEGATIVE, Urine Methadone Screen NEGATIVE, Urine Barbiturates Screen NEGATIVE, Urine Phencyclidine Screen NEGATIVE, Urine Amphetamines Screen NEGATIVE, Urine Benzodiazepines Screen NEGATIVE, Urine Cocaine Metabolite Screen NEGATIVE, Urine Cannabinoids Screen NEGATIVE, Ethyl Alcohol Level < 0.003, Coronavirus (COVID-19)(PCR) NEGATIVE, Influenza Type A (RT-PCR) NEGATIVE, Influenza Type B (RT-PCR) NEGATIVE, Respiratory Syncytial Virus (PCR) NEGATIVE 04/02/21 18:24: POC Troponin I (Misc) 0.01 04/02/21 21:44: POC Troponin I (Misc) 0.01 CBC/BMP Laboratory Tests 04/02/21 17:50 Home Medications Scheduled Anastrozole (Anastrozole) 1 Mg Tablet, 1 MG PO DAILY for breast cancer adjuvant therapy Take 1 mg po daily for at least 5 years Calcium Carbonate/Vitamin D3 (Calcium 600+D Softgel) 1 Each Capsule, 1 CAP PO DAILY Cholecalciferol (Vitamin D3) (Vitamin D3) 125 Mcg Capsule, 125 MCG PO DAILY Citalopram Hydrobromide (Citalopram HBr) 10 Mg Tab, 20 MG PO QHS Iodine (Kelp) 150 Mcg Tablet, 150 MCG PO DAILY Multivitamins (Thera M Plus Tablet) 1 Each Tablet, 1 TAB PO DAILY Rhodes-3/Dha/Epa/Fish Oil (Fish Oil 1,000 mg Softgel) 1 Each Capsule, 2,000 MG PO DAILY Rosuvastatin Calcium (Rosuvastatin Calcium) 5 Mg Tablet, 5 MG PO DAILY Vitamin E Acetate (Vitamin E) 1,000 Unit Capsule, 1,000 UNIT PO DAILY Allergies Coded Allergies: Sulfa (Sulfonamide Antibiotics) (Verified Allergy, Intermediate, hives, 04/13/19) GME ATTESTATION GME ATTESTATION My faculty preceptor for this patient encounter was physically present during the encounter and was fully available. All aspects of the patient interview, examination, medical decision making process, and medical care plan development were reviewed and approved by the faculty preceptor. The faculty preceptor is aware and concurs with the plan as stated in the body of this note and will attest to such by his/her cosignature. ATTENDING NOTE ILayton, have independently examined this patient and performed my own physical exam, as well as reviewed the documentation and addend when necessary. I have discussed in detail with the resident / student the findings and plan of treatment as documented by the resident / student. I agree with their findings and treatment plan except for any changes as outlined below. FLAVIO DELUNA DO Apr 02, 2021 23:19 LUCILLE WINN MD Apr 05, 2021 04:56
[2021-04-02] MEDS ORDERED: ROSU5TAB5 PO (23:20)
[2021-04-02] MEDS ORDERED: VITMTA PO (23:20)
[2021-04-02] MEDS ORDERED: D-50CAP PO (23:20)
[2021-04-02] MEDS ORDERED: HOME MED LIST COMPLETE! XX SCH (23:25)
[2021-04-02] MEDS ORDERED: CALCIUM CARBONATE 500 MG CHEW U/D PO PRN (23:35)
[2021-04-02] MEDS: CitaloPRAM (CeleXA) 10 MG TABLET PO SCH (23:35)
[2021-04-02] MEDS ORDERED: RAMELTEON 8 MG TAB (ROZEREM) PO PRN (23:40)
[2021-04-03] MEDS: CitaloPRAM (CeleXA) 10 MG TABLET PO SCH (00:37)
--- NOTE | 2021-04-03 01:06 | ECGEPIP ---
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
[2021-04-03] MEDS ORDERED: DOCUSATE SODIUM 100MG CAPSULE PO PRN (03:00)
[2021-04-03 07:40] LABS: HEMATOCRIT 41.1 % (36.0-47.0); HEMOGLOBIN 13.6 g/dl (12.0-15.5); MEAN CORPUSCULAR HEMOGLOBIN 31.9 pg (27.0-33.0); MEAN CORPUSCULAR HGB CONC 33.1 g/dl (32.0-36.5); MEAN CORPUSCULAR VOLUME 96.5 fl (80.0-96.0); PLATELET COUNT, AUTOMATED 212 10^3/uL (150-450); RED BLOOD COUNT 4.26 10^6/uL (4.00-5.40); WHITE BLOOD COUNT 4.7 10^3/uL (4.0-10.0)
[2021-04-03 08:03] LABS: BLOOD UREA NITROGEN 15 MG/DL (7-18); CALCIUM LEVEL 8.4 MG/DL (8.8-10.2); CARBON DIOXIDE LEVEL 27 MEQ/L (21-32); CHLORIDE LEVEL 110 MEQ/L (98-107); CREATININE FOR GFR 0.78 MG/DL (0.55-1.30); GLOMERULAR FILTRATION RATE > 60.0 (>45); GLUCOSE, FASTING 90 MG/DL (70-100); POTASSIUM SERUM 4.3 MEQ/L (3.5-5.1); SODIUM LEVEL 142 MEQ/L (136-145)
--- NOTE | 2021-04-03 08:06 | ECGEPIP ---
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
[2021-04-03] MEDS ORDERED: VITAMIN D (CHOLECALCIFEROL) 400 INTERNATIONAL UNITS TAB PO SCH (09:00)
[2021-04-03] MEDS ORDERED: ENTER DRUG NAME HERE (PATIENT'S OWN MED) PO SCH (09:00)
[2021-04-03] MEDS ORDERED: ANASTRAZOLE 1 MG PO SCH (09:00)
[2021-04-03] MEDS ORDERED: OMEGA-3 1000MG CAPSULE PO SCH (09:00)
[2021-04-03] MEDS ORDERED: MULTIVITAMINS/MINERALS THERAP 1 TAB PO SCH (09:00)
[2021-04-03] MEDS ORDERED: ROSUVASTATIN 10 MG TAB (CRESTOR) PO SCH (09:00)
--- NOTE | 2021-04-03 11:06 | IPNPDOC ---
Date Seen The patient was seen on 04/03/21. Progress Note SUBJECTIVE: No events overnight. Called [employer] Heart event monitoring system to see if any events were recorded over the past 36 hours, they have no recorded events. No recorded events overnight on telemetry. Echocardiogram done in the ER 04/02/21, will call Dr. Holt to discuss. Denies lightheadedness, chest pain, SOB, palpitations. OBJECTIVE: PHYSICAL EXAMINATION: VITAL SIGNS: See below GENERAL APPEARANCE: NAD, resting in bed, AAOx 3 HEENT: NC, AT, EOMI, no scleral icterus, moist mucous membranes, no pharyngeal erythema CARDIOVASCULAR: RRR, normal S1-S2. No murmurs, gallops, rubs. LUNGS: CTAB with full breath sounds, no wheezes, crackles, or rhonchi. ABDOMEN: Soft, nontender, nondistended, bowel sounds present. No hepatosplenomegaly. No masses or ecchymosis. No CVA tenderness. EXTREMITIES: No swelling or edema NEUROLOGICAL: No focal or sensory deficits. CN II-XII grossly intact. PSYCHIATRIC: mood and affect appropriate LABORATORY DATA: See below. IMAGIN04/02/2021 chest x-ray: No acute pulmonary disease." 04/02/[address]: No acute intracranial abnormality." 04/02/2021 CT angiogram chest: No acute findings. No pulmonary embolism." MICROBIOLOGY: Please see below. Assessment/Plan: Syncope 2/2 vasovagal 2/2 orthostatic hypotension vs. ? panic attack vs. other c ardiac cause -+ orthostatics, patient drinks plenty of water daily, no precipitating dizziness/room spinning around her -Echo pending, neg tele overnight, neg [employer] Heart event monitor (called comp any, spoke with them and no recorded events on their end either) Suspect vasovagal given that the symptoms typically come on when she is standing up. The histologist technologist who did her echocardiogram was also the one who administered her stress test in November and feels she may have had a panic attack at that time rather than a true cardiac event CT head, CTA chest negative, EKG unchanged from prior, trops negative. -C/w tele, f/u echocardiogram results. -Recommend increase salt intake for now, compression stockings -Discussed the case with on-call neurologist Dr. Emmanuel, highly suspicious of vasovagal syncope 2/2 to orthostatic hypotension. Agrees with plan above for now. L-sided breast cancer -Continue anastrazole Depression -Continue citalopram DVT prophylaxis -TEDS/seqs Disposition: Observation status. Anticipate DC within 24-48 hours after admission. VS, I&O, 24H, Fishbone Vital Signs/I&O Vital Signs Date Time Temp Pulse Resp B/P (MAP) Pulse Ox O2 Delivery O2 Flow Rate FiO2 04/03/21 08:09 76 132/79 (96) 79 162/73 (102) 04/03/21 06:31 97.7 17 97 Room Air Laboratory Data 24H LABS Laboratory Tests 2 04/02/21 17:50: Immature Granulocyte % (Auto) 0.3, Neutrophils (%) (Auto) 61.0, Lymphocytes (%) (Auto) 29.0, Monocytes (%) (Auto) 8.1H, Eosinophils (%) (Auto) 1.2, Basophils (%) (Auto) 0.4, Neutrophils # (Auto) 4.7, Lymphocytes # (Auto) 2.2, Monocytes # (Auto) 0.6, Eosinophils # (Auto) 0.1, Basophils # (Auto) 0.0, Nucleated Red Blood Cells % (auto) 0.0, Anion Gap 5L, Glomerular Filtration Rate > 60.0, Calcium Level 9.1, Magnesium Level 2.4, Thyroid Stimulating Hormone (TSH) 1.450, Free Thyroxine 1.10, Urine Opiates Screen NEGATIVE, Urine Methadone Screen NEGATIVE, Urine Barbiturates Screen NEGATIVE, Urine Phencyclidine Screen NEGATIVE, Urine Amphetamines Screen NEGATIVE, Urine Benzodiazepines Screen NEGATIVE, Urine Cocaine Metabolite Screen NEGATIVE, Urine Cannabinoids Screen NEGATIVE, Ethyl Alcohol Level < 0.003, Coronavirus (COVID-19)(PCR) NEGATIVE, Influenza Type A (RT-PCR) NEGATIVE, Influenza Type B (RT-PCR) NEGATIVE, Respiratory Syncytial Virus (PCR) NEGATIVE 04/02/21 18:24: POC Troponin I (Misc) 0.01 04/02/21 21:44: POC Troponin I (Misc) 0.01 04/03/21 06:48: Nucleated Red Blood Cells % (auto) 0.0, Anion Gap 5L, Glomerular Filtration Rate > 60.0, Calcium Level 8.4L CBC/BMP Laboratory Tests 04/02/21 17:50 04/03/21 06:48 Senait Dailey MD Apr 03, 2021 11:06
--- NOTE | 2021-04-03 16:34 | ECHO ---
ECHOCARDIOGRAM DATE OF PROCEDURE: 04/02/2021 Age: 65 Gender: Height: 67 inches Weight: 175 pounds. PATIENT LOCATION: Emergency department (ED). REFERRING PHYSICIAN: Dr. Carlin. INDICATION: Syncope. 2D MEASUREMENTS: IVS 1.0 cm LV 4.0 cm LVPW 0.8 cm Aortic root 3.1 cm LA 3.6 cm IVC 1.95 cm DOPPLER MEASUREMENTS: Peak velocity across the aortic valves 1.2 m/s Peak velocity across LVOT 1.2 m/s Mitral E 0.67, mitral A 0.71 with a ratio of 0.95 Tricuspid valve velocity 2.4 m/s 2D COMMENTS: 1. Normal left ventricular size, wall thickness, and normal global left ventricular systolic function with a hyperdynamic left ventricle. The estimated left ventricular systolic ejection fraction is 65%-70%. 2. Normal left atrium. Normal right atrium and right ventricle. 3. The atrial septum appeared to be normal without evidence of defect or shunt. 4. Normal aortic root. 5. Trace pericardial effusion noted. No evidence of cardiac tamponade. 6. The aortic valve, mitral valve, tricuspid valve, and pulmonic valve appeared to be normal. The proximal pulmonary artery branches were not well visualized. 7. The inferior vena cava was mildly enlarged. Central venous pressure mildly elevated. DOPPLER: It detected trace mitral regurgitation and mild tricuspid regurgitation. The calculated pulmonary artery systolic pressure varies between 30-40 mmHg. Abnormal relaxation pattern was noted across the mitral valve leaflets as well as the mitral valve annulus, consistent with features of grade 1 left ventricular diastolic dysfunction. IMPRESSION: 1. Normal global left ventricular systolic function. There were some features of grade 1 left ventricular diastolic dysfunction manifested by abnormal relaxation. 2. Trace mitral regurgitation. 3. Mild tricuspid regurgitation with mild pulmonary hypertension. 4. There may be findings of elevated central venous pressure. The inferior vena cava was mildly enlarged.
[2021-04-03 17:58] VITALS: BP 130/80
--- NOTE | 2021-04-03 18:39 | DS.PDOC ---
Discharge Summary General Date of Admission Apr 02, 2021 at 15:55 Date of Discharge 04/03/21 Attending Physician: Senait Dailey MD Discharge Summary PROCEDURES PERFORMED DURING STAY: None ADMITTING DIAGNOSES: Syncope 2/2 vasovagal 2/2 orthostatic hypotension L-sided breast cancer Depression DISCHARGE DIAGNOSES: Syncope 2/2 vasovagal 2/2 orthostatic hypotension L-sided breast cancer Depression COMPLICATIONS/CHIEF COMPLAINT: Syncope. HISTORY OF PRESENT ILLNESS: Patient is a 65-year-old female with a history of syncopal episodes in the past who presents following a syncopal episode at work. 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 She went to the nurses office and lay down at which point she states she passed out once or twice for a few seconds. She states this has been happening intermittently for the last couple of years. She had a stress test in November where she apparently passed out after 4 minutes, but is unsure if they found anything of significance. She also has an event monitor in place however the event monitor itself was not charged at the time. HOSPITAL COURSE: She was brought to the emergency department following her syncopal event with unremarkable CBC, BMP, magnesium, thyroid studies, troponins, unchanged EKG, negative head CT, negative chest angiogram, negative chest x-ray. The ED physician spoke with Dr. Holt her slip cover cutter who recommended admission for 24 hours of observation on telemetry. The following issues were addressed/treated during her hospital stay: Syncope 2/2 vasovagal 2/2 orthostatic hypotension -+ orthostatics, patient drinks plenty of water daily, no precipitating dizziness/room spinning around her -Echo preliminary reading when reviewed with Dr. Holt: preserved EF, no concerning abnormalities -Neg tele overnight, neg [employer] Heart event monitor (called company, spoke with them and no recorded events on their end either) -Suspect vasovagal given that the symptoms typically come on when she is standing up. -CT head, CTA chest negative, EKG unchanged from prior, trops negative. -Recommend increase salt intake for now, compression stockings -Discussed the case with on-call neurologist Dr. Emmanuel, highly suspicious of vasovagal syncope 2/2 to orthostatic hypotension as well. Agrees with plan above for now. -To f/u with PCP as o/p L-sided breast cancer -Continue anastrazole Depression -Continue citalopram DISCHARGE MEDICATIONS: Please see below. ALLERGIES: Please see below. PHYSICAL EXAMINATION ON DISCHARGE: VITAL SIGNS: See below GENERAL APPEARANCE: NAD, resting in bed, AAOx 3 HEENT: NC, AT, EOMI, no scleral icterus, moist mucous membranes, no pharyngeal erythema CARDIOVASCULAR: RRR, normal S1-S2. No murmurs, gallops, rubs. LUNGS: CTAB with full breath sounds, no wheezes, crackles, or rhonchi. ABDOMEN: Soft, nontender, nondistended, bowel sounds present. No hepatosplenomegaly. No masses or ecchymosis. No CVA tenderness. EXTREMITIES: No swelling or edema NEUROLOGICAL: No focal or sensory deficits. CN II-XII grossly intact. PSYCHIATRIC: mood and affect appropriate LABORATORY DATA: Please see below. IMAGIN04/02/2021 chest x-ray: No acute pulmonary disease." 04/02/[address]: No acute intracranial abnormality." 04/02/2021 CT angiogram chest: No acute findings. No pulmonary embolism." PROGNOSIS: good ACTIVITY: As tolerated DIET: regular diet DISPOSITION: 01 Home, Self-Care. DISCHARGE INSTRUCTIONS / ITEMS TO FOLLOWUP ON ON OUTPATIENT: 1. Follow up with Dr. Cira Garcia on 04/07/21 at 11 AM. Her office was called and asked to follow-up on the official results of the echocardiogram. Preliminary results reviewed with Dr. Holt briefly prior to discharge. 2. There were no noted concerning episodes on event monitor when the physician called to check the company's records. 3. Case was discussed with Dr. Emmanuel, neurology. Signs and symptoms of work-up along with findings of orthostatic hypotension (fluctuations in your blood pressure with laying down and sitting up) are suggestive of vasovagal episode. Suggestions are to increase salt intake, hydrate adequately during the day and continue to wear compression stockings in bilateral lower extremities. DISCHARGE CONDITION:Stable TIME SPENT ON DISCHARGE: 35 minutes. Vital Signs/I&Os Vital Signs Date Time Temp Pulse Resp B/P (MAP) Pulse Ox O2 Delivery O2 Flow Rate FiO2 04/03/21 17:58 130/80 (97) 04/03/21 15:16 62 96 04/03/21 06:31 97.7 17 Room Air Laboratory Data Labs 24H Laboratory Tests 2 04/02/21 21:44: POC Troponin I (Misc) 0.01 04/03/21 06:48: Nucleated Red Blood Cells % (auto) 0.0, Anion Gap 5L, Glomerular Filtration Rate > 60.0, Calcium Level 8.4L CBC/BMP Laboratory Tests 04/03/21 06:48 Discharge Medications Scheduled Anastrozole (Anastrozole) 1 Mg Tablet, 1 MG PO DAILY for breast cancer adjuvant therapy Take 1 mg po daily for at least 5 years Calcium Carbonate/Vitamin D3 (Calcium 600+D Softgel) 1 Each Capsule, 1 CAP PO DAILY, (Reported) Cholecalciferol (Vitamin D3) (Vitamin D3) 125 Mcg Capsule, 125 MCG PO DAILY, (Reported) Citalopram Hydrobromide (Citalopram HBr) 10 Mg Tab, 20 MG PO QHS, (Reported) Iodine (Kelp) 150 Mcg Tablet, 150 MCG PO DAILY, (Reported) Multivitamins (Thera M Plus Tablet) 1 Each Tablet, 1 TAB PO DAILY, (Reported) Adell-3/Dha/Epa/Fish Oil (Fish Oil 1,000 mg Softgel) 1 Each Capsule, 2,000 MG PO DAILY, (Reported) Rosuvastatin Calcium (Rosuvastatin Calcium) 5 Mg Tablet, 5 MG PO DAILY, (Reported) Vitamin E Acetate (Vitamin E) 1,000 Unit Capsule, 1,000 UNIT PO DAILY, (Reported) Allergies Coded Allergies: Sulfa (Sulfonamide Antibiotics) (Verified Allergy, Intermediate, hives, 04/13/19) Senait Dailey MD Apr 03, 2021 18:38
== END 2021-04-03 17:51 | disposition home or self-care (01) ==
LOC: M ED 15:54 → M ED INP 15:55
PROVIDERS: ADMIT Family Medicine; ATTEND Family Medicine
DX: I95.1 Orthostatic hypotension (principal); C50.912 Malignant neoplasm of unspecified site of left female breast; F32.9 Major depressive disorder, single episode, unspecified; Z79.811 Long term (current) use of aromatase inhibitors; Z79.899 Other long term (current) drug therapy; Z88.2 Allergy status to sulfonamides
CPT/HCPCS: 36415; 70450; 71045; 71275; 80048; 80307; 82077; 83735; 84439; 84443; 84484; 85025; 85027; 87631; 93005; 93041; 93306; 94760; 97161; 97530; 99285; Q9967

== ENCOUNTER → 2021-05-13 | Outpatient (CLI) | payer OTHER ==
[~2021-05-13] MED LIST changes: -CITA10TA5 PO; +CITA10TA7 PO; +D-50CAP PO; +ROSU5TAB5; +ROSU5TAB5 PO; +VITMTA PO
[2021-05-13 11:01] LABS: BASO % 0.4 % (0.0-1.0); EOS # 0.2 10^3/uL (0.0-0.5); EOS % 4.4 % (0.0-3.0); HEMATOCRIT 44.8 % (36.0-47.0); HEMOGLOBIN 14.6 g/dl (12.0-15.5); LYMPH # 1.4 10^3/uL (1.5-5.0); LYMPH % 27.3 % (24.0-44.0); MEAN CORPUSCULAR HEMOGLOBIN 31.5 pg (27.0-33.0); MEAN CORPUSCULAR HGB CONC 32.6 g/dl (32.0-36.5); MEAN CORPUSCULAR VOLUME 96.8 fl (80.0-96.0); MONO # 0.6 10^3/uL (0.0-0.8); MONO % 11.2 % (2.0-8.0); NEUTROPHILS # 2.8 10^3/uL (1.5-8.5); NEUTROPHILS % 56.5 % (36.0-66.0); PLATELET COUNT, AUTOMATED 223 10^3/uL (150-450); RED BLOOD COUNT 4.63 10^6/uL (4.00-5.40)
[2021-05-13 12:01] LABS: ALBUMIN 3.3 GM/DL (3.2-5.2); ALT/SGPT 20 U/L (12-78); BILIRUBIN,TOTAL 0.6 MG/DL (0.2-1.0); BLOOD UREA NITROGEN 18 MG/DL (7-18); CALCIUM LEVEL 8.9 MG/DL (8.8-10.2); CARBON DIOXIDE LEVEL 29 MEQ/L (21-32); CHLORIDE LEVEL 105 MEQ/L (98-107); CHOLESTEROL LEVEL 204 MG/DL (<200); CHOLESTEROL RISK RATIO 2.372 (<5); CREATININE FOR GFR 0.85 MG/DL (0.55-1.30); GLOMERULAR FILTRATION RATE > 60.0 (>45); GLUCOSE, FASTING 91 MG/DL (70-100); HDL CHOLESTEROL 86 MG/DL (>40); LDL CHOLESTEROL 99 MG/DL (<100); NON-HDL-C 118 MG/DL; POTASSIUM SERUM 4.5 MEQ/L (3.5-5.1); SODIUM LEVEL 140 MEQ/L (136-145); TOTAL PROTEIN 6.3 GM/DL (6.4-8.2); TRIGLYCERIDES LEVEL 95 MG/DL (<150)
== END ==
LOC: M PLALAB 07:03
PROVIDERS: ATTEND Internal Medicine
DX: Z00.00 Encounter for general adult medical examination without abnormal findings (principal); I12.9 Hypertensive chronic kidney disease with stage 1 through stage 4 chronic kidney disease, or unspecified chronic kidney disease; E78.00 Pure hypercholesterolemia, unspecified

== ENCOUNTER → 2021-07-03 | Outpatient (CLI) | payer OTHER | LOC: M SLEEP 20:00 | PROVIDERS: ATTEND Physician Assistant | DX: G47.33 Obstructive sleep apnea (adult) (pediatric) (principal); G47.61 Periodic limb movement disorder ==

== ENCOUNTER → 2021-07-27 | Outpatient (CLI) | payer MEDICARE, OTHER ==
[2021-07-27 12:54] LABS: TOTAL PROTEIN 6.3 GM/DL (6.4-8.2)
[2021-07-27 13:01] LABS: VITAMIN B12 LEVEL 592 PG/ML
[2021-07-27 13:02] LABS: FOLATE > 24.0 NG/ML
[2021-07-27 13:25] LABS: HEMOGLOBIN A1c 5.4 %
[2021-07-28 10:08] LABS: ALBUMIN 4.11 GM/DL (3.29-5.55); ALBUMIN % 65.2 % (55.8-66.1); ALPHA-1-GLOBULIN % 4.3 % (2.9-4.9); ALPHA-1-GLOBULINS 0.27 GM/DL (0.17-0.41); ALPHA-2-GLOBULINS 0.69 GM/DL (0.42-0.99); ALPHA-2-GLOBULINS % 10.9 % (7.1-11.8); BETA-1-GLOBULINS 0.35 GM/DL (0.28-0.60); BETA-1-GLOBULINS % 4.6 % (4.7-7.2); BETA-2-GLOBULINS 0.23 GM/DL (0.19-0.55); BETA-2-GLOBULINS % 3.6 % (3.2-6.5); GAMMA GLOBULIN % 10.4 % (11.1-18.8); GAMMA GLOBULINS 0.66 GM/DL (0.65-1.58)
== END ==
LOC: M WUC 09:23
PROVIDERS: ATTEND Psychiatry & Neurology Neurology
DX: E11.40 Type 2 diabetes mellitus with diabetic neuropathy, unspecified (principal); E53.9 Vitamin B deficiency, unspecified; E51.9 Thiamine deficiency, unspecified

== ENCOUNTER → 2021-12-07 | Outpatient (CLI) | payer MEDICARE, OTHER ==
[~2021-12-07] MED LIST changes: +ELIQ5TAB; +METO1TAB32
[2021-12-07 14:06] LABS: BASO % 0.5 % (0.0-1.0); EOS # 0.1 10^3/uL (0.0-0.5); EOS % 2.4 % (0.0-3.0); HEMATOCRIT 44.5 % (36.0-47.0); HEMOGLOBIN 14.6 g/dl (12.0-15.5); LYMPH # 1.4 10^3/uL (1.5-5.0); LYMPH % 32.5 % (24.0-44.0); MEAN CORPUSCULAR HEMOGLOBIN 31.3 pg (27.0-33.0); MEAN CORPUSCULAR HGB CONC 32.8 g/dl (32.0-36.5); MEAN CORPUSCULAR VOLUME 95.3 fl (80.0-96.0); MONO # 0.4 10^3/uL (0.0-0.8); MONO % 9.4 % (2.0-8.0); NEUTROPHILS # 2.3 10^3/uL (1.5-8.5); PLATELET COUNT, AUTOMATED 232 10^3/uL (150-450); RED BLOOD COUNT 4.67 10^6/uL (4.00-5.40); WHITE BLOOD COUNT 4.2 10^3/uL (4.0-10.0)
[2021-12-07 14:10] LABS: APPEARANCE, URINE CLOUDY (CLEAR); BACTERIA, URINE AUTO NEGATIVE (NEGATIVE); BILIRUBIN, URINE AUTO NEGATIVE (NEGATIVE); BLOOD, URINE BLOOD NEGATIVE (NEGATIVE); COLOR, URINE RED (YELLOW); GLUCOSE, URINE (UA) AUTO NEGATIVE (NEGATIVE); KETONE, URINE AUTO NEGATIVE (NEGATIVE); LEUKOCYTE ESTERASE, URINE AUTO NEGATIVE (NEGATIVE); NITRITE, URINE AUTO NEGATIVE (NEGATIVE); PROTEIN, URINE AUTO NEGATIVE (NEGATIVE); RBC, URINE AUTO 0 /HPF (0-3); SPECIFIC GRAVITY URINE AUTO 1.014 (1.002-1.035); SQUAMOUS EPITHELIAL CELL UR AU 0 /HPF (0-6); UROBILINOGEN, URINE AUTO 0.2 mg/dL (0.0-2.0); WBC, URINE AUTO 0 /HPF (0-3)
[2021-12-07 16:40] LABS: ALBUMIN 3.5 GM/DL (3.2-5.2); ALT/SGPT 18 U/L (12-78); BILIRUBIN,TOTAL 0.6 MG/DL (0.2-1.0); BLOOD UREA NITROGEN 16 MG/DL (7-18); CALCIUM LEVEL 9.5 MG/DL (8.8-10.2); CARBON DIOXIDE LEVEL 27 MEQ/L (21-32); CHLORIDE LEVEL 108 MEQ/L (98-107); CHOLESTEROL LEVEL 219 MG/DL (<200); CHOLESTEROL RISK RATIO 2.638 (<5); CREATININE FOR GFR 0.83 MG/DL (0.55-1.30); GLOMERULAR FILTRATION RATE > 60.0 (>45); GLUCOSE, FASTING 94 MG/DL (70-100); HDL CHOLESTEROL 83 MG/DL (>40); LDL CHOLESTEROL 112 MG/DL (<100); MAGNESIUM LEVEL 2.4 MG/DL (1.8-2.4); NON-HDL-C 136 MG/DL; POTASSIUM SERUM 4.5 MEQ/L (3.5-5.1); SODIUM LEVEL 143 MEQ/L (136-145); TOTAL PROTEIN 6.1 GM/DL (6.4-8.2); TRIGLYCERIDES LEVEL 119 MG/DL (<150)
== END ==
LOC: M PLALAB 08:15
PROVIDERS: ATTEND Internal Medicine
DX: I10 Essential (primary) hypertension (principal); E78.00 Pure hypercholesterolemia, unspecified

== ENCOUNTER → 2021-12-28 | Outpatient (CLI) | payer MEDICARE, OTHER | LOC: M WHC 09:53 | PROVIDERS: ATTEND Internal Medicine | DX: Z12.31 Encounter for screening mammogram for malignant neoplasm of breast (principal); Z85.3 Personal history of malignant neoplasm of breast ==

== ENCOUNTER → 2022-04-09 | Outpatient (CLI) | payer MEDICARE, OTHER ==
[2022-04-09 13:18] LABS: BASO % 0.4 % (0.0-1.0); EOS # 0.1 10^3/uL (0.0-0.5); EOS % 2.5 % (0.0-3.0); HEMOGLOBIN 14.4 g/dl (12.0-15.5); LYMPH # 1.7 10^3/uL (1.5-5.0); LYMPH % 31.7 % (24.0-44.0); MEAN CORPUSCULAR HGB CONC 32.7 g/dl (32.0-36.5); MEAN CORPUSCULAR VOLUME 97.8 fl (80.0-96.0); MONO # 0.5 10^3/uL (0.0-0.8); MONO % 9.8 % (2.0-8.0); NEUTROPHILS # 2.9 10^3/uL (1.5-8.5); NEUTROPHILS % 55.4 % (36.0-66.0); PLATELET COUNT, AUTOMATED 232 10^3/uL (150-450); WHITE BLOOD COUNT 5.2 10^3/uL (4.0-10.0)
[2022-04-09 13:55] LABS: THYROID STIMULATING HORMONE 0.92 uIU/ML (0.55-4.78)
[2022-04-13 14:00] LABS: ALBUMIN 3.3 G/DL (3.2-5.2); BILIRUBIN,TOTAL 0.5 MG/DL (0.3-1.2); CALCIUM LEVEL 9.6 MG/DL (8.3-10.6); CHOLESTEROL RISK RATIO 2.77 (<5); CREATININE FOR GFR 1.02 MG/DL (0.55-1.30); GLOMERULAR FILTRATION RATE 57.5 (>45); HDL CHOLESTEROL 77.7 MG/DL (>40); LDL CHOLESTEROL 113.5 MG/DL (<100); POTASSIUM SERUM 4.9 MMOL/L (3.5-5.1); TOTAL PROTEIN 5.9 G/DL (5.7-8.2)
== END ==
LOC: M PLALAB 11:09
PROVIDERS: ATTEND Internal Medicine
DX: F32.89 Other specified depressive episodes (principal); C50.312 Malignant neoplasm of lower-inner quadrant of left female breast; F34.1 Dysthymic disorder; R55 Syncope and collapse

== ENCOUNTER → 2022-07-02 | Outpatient (CLI) | payer MEDICARE, OTHER | LOC: M RAD 15:07 | PROVIDERS: ATTEND Nurse Practitioner | DX: M54.2 Cervicalgia (principal); C50.919 Malignant neoplasm of unspecified site of unspecified female breast; K11.6 Mucocele of salivary gland ==

== ENCOUNTER → 2022-08-09 | Outpatient (CLI) | payer MEDICARE, OTHER ==
[~2022-08-09] MED LIST changes: +E-Z-GAS II EFFERVESCENT PACKET (SODIUM BICARB./CITRIC ACID/SIMETHICONE) As Ordered ONE; +E-Z-HD 98% w/w 340GM SUSP BTL As Ordered ONE; +E-Z-PAQUE 96% w/w SUSP 176GM BTL As Ordered ONE; +ISOVUE-370 76% 100ML VIAL As Ordered ONE
== END ==
LOC: M RAD 07:10
PROVIDERS: ATTEND Otolaryngology
DX: R13.10 Dysphagia, unspecified (principal); D37.030 Neoplasm of uncertain behavior of the parotid salivary glands; J34.1 Cyst and mucocele of nose and nasal sinus
CPT/HCPCS: 70491; 74220; Q9967

== ENCOUNTER → 2022-08-17 | Outpatient (CLI) | payer MEDICARE, OTHER ==
[~2022-08-17] MED LIST changes: -E-Z-GAS II EFFERVESCENT PACKET (SODIUM BICARB./CITRIC ACID/SIMETHICONE) As Ordered ONE; -E-Z-HD 98% w/w 340GM SUSP BTL As Ordered ONE; -E-Z-PAQUE 96% w/w SUSP 176GM BTL As Ordered ONE; -ISOVUE-370 76% 100ML VIAL As Ordered ONE
[2022-08-17 11:07] LABS: BASO % 0.5 % (0.0-1.0); BLOOD UREA NITROGEN 17 MG/DL (9-23); CALCIUM LEVEL 9.3 MG/DL (8.3-10.6); CARBON DIOXIDE LEVEL 31 MMOL/L (20-31); CHLORIDE LEVEL 107 MMOL/L (98-107); CHOLESTEROL LEVEL 183 MG/DL (<200); CHOLESTEROL RISK RATIO 2.47 (<5); EOS # 0.1 10^3/uL (0.0-0.5); EOS % 2.7 % (0.0-3.0); GLOMERULAR FILTRATION RATE > 60.0 (>45); GLUCOSE, FASTING 118 MG/DL (74-106); HDL CHOLESTEROL 73.9 MG/DL (>40); HEMATOCRIT 43.1 % (36.0-47.0); HEMOGLOBIN 14.1 g/dl (12.0-15.5); LDL CHOLESTEROL 89.9 MG/DL (<100); LYMPH # 1.7 10^3/uL (1.5-5.0); LYMPH % 41.2 % (24.0-44.0); MEAN CORPUSCULAR HEMOGLOBIN 31.6 pg (27.0-33.0); MEAN CORPUSCULAR HGB CONC 32.7 g/dl (32.0-36.5); MEAN CORPUSCULAR VOLUME 96.6 fl (80.0-96.0); MONO # 0.4 10^3/uL (0.0-0.8); MONO % 10.7 % (2.0-8.0); NEUTROPHILS # 1.9 10^3/uL (1.5-8.5); NEUTROPHILS % 44.7 % (36.0-66.0); NON-HDL-C 109.1 MG/DL; PLATELET COUNT, AUTOMATED 233 10^3/uL (150-450); POTASSIUM SERUM 4.7 MMOL/L (3.5-5.1); RED BLOOD COUNT 4.46 10^6/uL (4.00-5.40); SODIUM LEVEL 142 MMOL/L (136-145); TRIGLYCERIDES LEVEL 96 MG/DL (<150); WHITE BLOOD COUNT 4.1 10^3/uL (4.0-10.0)
[2022-08-18 17:30] LABS: HEMOGLOBIN A1c 5.4 % (4.0-6.0)
== END ==
LOC: M PLALAB 07:39
PROVIDERS: ATTEND Internal Medicine
DX: E78.00 Pure hypercholesterolemia, unspecified (principal); I10 Essential (primary) hypertension; I48.91 Unspecified atrial fibrillation

== ENCOUNTER → 2022-09-13 | Outpatient (CLI) | payer MEDICARE, OTHER ==
[~2022-09-13] MED LIST changes: +LIDOCAINE 1% MDV 20ML VIAL As Ordered ONE
[2022-09-13 10:35] VITALS: BP 183/89
== END ==
LOC: M IRPRO 10:19
PROVIDERS: ATTEND Otolaryngology
DX: D37.030 Neoplasm of uncertain behavior of the parotid salivary glands (principal)

== ENCOUNTER 2022-09-15 15:50 | Observation (INO) | payer MEDICARE, OTHER ==
[~2022-09-15 15:50] MED LIST changes: -ELIQ5TAB; +ELIQ5TAB PO; -LIDOCAINE 1% MDV 20ML VIAL As Ordered ONE; -METO1TAB32; +METO1TAB32 PO
[2022-09-15 16:38] LABS: BASO % 0.2 % (0.0-1.0); EOS # 0.1 10^3/uL (0.0-0.5); EOS % 0.9 % (0.0-3.0); HEMATOCRIT 46.5 % (36.0-47.0); HEMOGLOBIN 15.7 g/dl (12.0-15.5); LYMPH # 2.2 10^3/uL (1.5-5.0); LYMPH % 39.4 % (24.0-44.0); MEAN CORPUSCULAR HEMOGLOBIN 31.5 pg (27.0-33.0); MEAN CORPUSCULAR HGB CONC 33.8 g/dl (32.0-36.5); MEAN CORPUSCULAR VOLUME 93.4 fl (80.0-96.0); MONO # 0.5 10^3/uL (0.0-0.8); MONO % 8.6 % (2.0-8.0); NEUTROPHILS # 2.9 10^3/uL (1.5-8.5); NEUTROPHILS % 50.7 % (36.0-66.0); PLATELET COUNT, AUTOMATED 245 10^3/uL (150-450); RED BLOOD COUNT 4.98 10^6/uL (4.00-5.40); WHITE BLOOD COUNT 5.6 10^3/uL (4.0-10.0)
[2022-09-15 16:45] LABS: RSV AMPLIFICATION NEGATIVE (NEGATIVE)
[2022-09-15 16:53] LABS: INR 0.91; PROTHROMBIN TIME 12.4 SECONDS (12.5-14.5)
[2022-09-15 16:54] LABS: PARTIAL THROMBOPLASTIN TIME 30.1 SECONDS (24.8-34.2)
[2022-09-15 17:01] LABS: LIPASE 62 U/L (12-53)
[2022-09-15 17:03] LABS: ALBUMIN 3.6 G/DL (3.2-5.2); ALKALINE PHOSPHATASE 66 U/L (46-116); ALT/SGPT 19 U/L (7.0-40); AST/SGOT 21 U/L (<34); BILIRUBIN,DIRECT < 0.1 MG/DL (<0.4); BILIRUBIN,TOTAL 0.3 MG/DL (0.3-1.2); BLOOD UREA NITROGEN 23 MG/DL (9-23); CALCIUM LEVEL 8.9 MG/DL (8.3-10.6); CARBON DIOXIDE LEVEL 24 MMOL/L (20-31); CHLORIDE LEVEL 107 MMOL/L (98-107); CPK CREATINE PHOSPHOKINASE 93 U/L (34-145); CREATININE FOR GFR 1.05 MG/DL (0.55-1.30); GLOMERULAR FILTRATION RATE 55.7 (>45); GLUCOSE, FASTING 173 MG/DL (74-106); POTASSIUM SERUM 3.9 MMOL/L (3.5-5.1); SODIUM LEVEL 142 MMOL/L (136-145); TOTAL PROTEIN 6.2 G/DL (5.7-8.2)
[2022-09-15 17:04] LABS: CK-MB VALUE MASS < 1.0 NG/ML (<3.6); MB/CK RELATIVE INDEX 1.07 (< OR =4)
[2022-09-15 17:07] LABS: FREE T4 1.07 NG/DL (0.89-1.76); THYROID STIMULATING HORMONE 0.958 uIU/ML (0.55-4.78)
[2022-09-15 18:35] LABS: CK-MB VALUE MASS < 1.0 NG/ML (<3.6)
[2022-09-15 18:36] LABS: CPK CREATINE PHOSPHOKINASE 78 U/L (34-145); MB/CK RELATIVE INDEX 1.28 (< OR =4)
[2022-09-15] MEDS ORDERED: HOME MED LIST COMPLETE! XX SCH (20:10)
[2022-09-15] MEDS ORDERED: INSULIN LISPRO (NovoLOG) PER UNIT SC SCH (21:00)
[2022-09-15] MEDS ORDERED: ACETAMINOPHEN TAB 650MG DOSE (2X325MG) PO PRN (21:40)
[2022-09-15] MEDS ORDERED: GLUCOSE 4GM CHEW TABLET PO PRN (21:40)
[2022-09-15] MEDS ORDERED: HYDROMORPHONE HCL 0.5 MG/ 0.5 ML SYRINGE IV PRN (21:40)
[2022-09-15] MEDS ORDERED: GLUCAGON INJ 1MG VIAL SC PRN (21:40)
[2022-09-15] MEDS ORDERED: DEXTROSE 50% 50ML SYRINGE IV PRN (21:40)
[2022-09-16 06:05] LABS: BLOOD UREA NITROGEN 17 MG/DL (9-23); CALCIUM LEVEL 8.8 MG/DL (8.3-10.6); CARBON DIOXIDE LEVEL 26 MMOL/L (20-31); CHLORIDE LEVEL 109 MMOL/L (98-107); CREATININE FOR GFR 0.85 MG/DL (0.55-1.30); GLOMERULAR FILTRATION RATE > 60.0 (>45); GLUCOSE, FASTING 89 MG/DL (74-106); POTASSIUM SERUM 4.1 MMOL/L (3.5-5.1); SODIUM LEVEL 143 MMOL/L (136-145)
[2022-09-16 06:12] LABS: HEMOGLOBIN A1c 5.2 % (4.0-6.0)
[2022-09-16] MEDS: INSULIN LISPRO (NovoLOG) PER UNIT SC SCH ×2 (07:30→12:19)
[2022-09-16] MEDS ORDERED: ROSUVASTATIN 10 MG TAB (CRESTOR) PO SCH (09:00)
[2022-09-16] MEDS ORDERED: APIXABAN 5 MG TAB (ELIQUIS) PO SCH (09:00)
[2022-09-16] MEDS ORDERED: METOPROLOL SUCC *XL* 12.5MG PER 1/2 TAB (TopROL *XL*) PO SCH (09:00)
[2022-09-16 09:18] VITALS: BP 129/60
[2022-09-16] MEDS ORDERED: PILL CUTTER 1 EACH XX PRN (10:45)
[2022-09-16 11:30] LABS: CK-MB VALUE MASS < 1.0 NG/ML (<3.6)
[2022-09-16 11:31] LABS: CPK CREATINE PHOSPHOKINASE 71 U/L (34-145)
[2022-09-16 12:30] VITALS: BP 132/98
== END 2022-09-16 12:48 | disposition home or self-care (01) ==
LOC: M ED 15:50 → M ED INP 15:51
PROVIDERS: ADMIT Internal Medicine; ATTEND Internal Medicine
DX: R55 Syncope and collapse (principal); R07.89 Other chest pain; I10 Essential (primary) hypertension; E78.5 Hyperlipidemia, unspecified; I48.91 Unspecified atrial fibrillation; Z79.01 Long term (current) use of anticoagulants; Z79.899 Other long term (current) drug therapy; Z88.2 Allergy status to sulfonamides; Z91.010 Allergy to peanuts
CPT/HCPCS: 36415; 70450; 71045; 80048; 80076; 81001; 82550; 82553; 83036; 83690; 83880; 84439; 84443; 84484; 85025; 85610; 85730; 87631; 93005; 93041; 93306; 94760; 99285; G0378

== ENCOUNTER → 2022-10-04 | Outpatient (CLI) | payer MEDICARE, OTHER ==
[~2022-10-04] MED LIST changes: +DULO1CAP4
[2022-10-04 10:51] LABS: C REACTIVE PROTEIN QUANTITATIV 0.6 MG/DL (<1.0)
[2022-10-04 10:52] LABS: RHEUMATOID FACTOR QUANT 7.2 IU/ML (<14)
[2022-10-05 20:07] LABS: ANTINUCLEAR ANTIBODIES DIRECT Negative (Negative); CYCLIC CITRULLINATED PEPTIDE 5 units (0-19)
== END ==
LOC: M PLALAB 08:30
PROVIDERS: ATTEND Internal Medicine
DX: M25.50 Pain in unspecified joint (principal); M19.90 Unspecified osteoarthritis, unspecified site

== ENCOUNTER → 2022-11-08 | Outpatient (CLI) | payer MEDICARE, OTHER | LOC: M PLARAD 11:11 | PROVIDERS: ATTEND Internal Medicine Hematology & Oncology | DX: C50.312 Malignant neoplasm of lower-inner quadrant of left female breast (principal) | CPT/HCPCS: 78815; A9552 ==

== ENCOUNTER → 2022-12-08 | Outpatient (REF) | payer MEDICARE, OTHER | LOC: M SFHCDERM 14:10 | PROVIDERS: ATTEND Physician Assistant | DX: C44.321 Squamous cell carcinoma of skin of nose (principal) ==

== ENCOUNTER → 2022-12-13 | Outpatient (CLI) | payer MEDICARE, OTHER ==
[2022-12-13 10:50] LABS: AMORPHOUS SEDIMENT MODERATE (NEGATIVE); APPEARANCE, URINE CLOUDY (CLEAR); BACTERIA, URINE AUTO NEGATIVE (NEGATIVE); BILIRUBIN, URINE AUTO NEGATIVE (NEGATIVE); BLOOD, URINE BLOOD NEGATIVE (NEGATIVE); COLOR, URINE YELLOW (YELLOW); GLUCOSE, URINE (UA) AUTO NEGATIVE (NEGATIVE); KETONE, URINE AUTO NEGATIVE (NEGATIVE); LEUKOCYTE ESTERASE, URINE AUTO NEGATIVE (NEGATIVE); NITRITE, URINE AUTO NEGATIVE (NEGATIVE); PROTEIN, URINE AUTO NEGATIVE (NEGATIVE); RBC, URINE AUTO 0 /HPF (0-3); SPECIFIC GRAVITY URINE AUTO 1.015 (1.002-1.035); SQUAMOUS EPITHELIAL CELL UR AU 1 /HPF (0-6); UROBILINOGEN, URINE AUTO 0.2 mg/dL (0.0-2.0); WBC, URINE AUTO 0 /HPF (0-3)
[2022-12-13 11:14] LABS: BASO % 0.2 % (0.0-1.0); EOS # 0.1 10^3/uL (0.0-0.5); EOS % 2.4 % (0.0-3.0); HEMATOCRIT 44.6 % (36.0-47.0); HEMOGLOBIN 14.5 g/dl (12.0-15.5); LYMPH # 1.5 10^3/uL (1.5-5.0); LYMPH % 35.2 % (24.0-44.0); MEAN CORPUSCULAR HGB CONC 32.5 g/dl (32.0-36.5); MEAN CORPUSCULAR VOLUME 95.3 fl (80.0-96.0); MONO # 0.4 10^3/uL (0.0-0.8); MONO % 9.2 % (2.0-8.0); NEUTROPHILS # 2.2 10^3/uL (1.5-8.5); NEUTROPHILS % 52.8 % (36.0-66.0); PLATELET COUNT, AUTOMATED 232 10^3/uL (150-450); RED BLOOD COUNT 4.68 10^6/uL (4.00-5.40); WHITE BLOOD COUNT 4.1 10^3/uL (4.0-10.0)
[2022-12-13 11:38] LABS: ALBUMIN 3.5 G/DL (3.2-5.2); ALKALINE PHOSPHATASE 57 U/L (46-116); ALT/SGPT 21 U/L (7.0-40); AST/SGOT 24 U/L (<34); BILIRUBIN,TOTAL 0.8 MG/DL (0.3-1.2); BLOOD UREA NITROGEN 17 MG/DL (9-23); CALCIUM LEVEL 9.4 MG/DL (8.3-10.6); CARBON DIOXIDE LEVEL 30 MMOL/L (20-31); CHLORIDE LEVEL 105 MMOL/L (98-107); CHOLESTEROL LEVEL 289 MG/DL (<200); CHOLESTEROL RISK RATIO 3.68 (<5); GLOMERULAR FILTRATION RATE > 60.0 (>45); GLUCOSE, FASTING 85 MG/DL (74-106); HDL CHOLESTEROL 78.4 MG/DL (>40); LDL CHOLESTEROL 182.2 MG/DL (<100); NON-HDL-C 210.6 MG/DL; POTASSIUM SERUM 4.4 MMOL/L (3.5-5.1); SODIUM LEVEL 140 MMOL/L (136-145); THYROID STIMULATING HORMONE 2.019 uIU/ML (0.55-4.78); TOTAL PROTEIN 6.3 G/DL (5.7-8.2); TRIGLYCERIDES LEVEL 142 MG/DL (<150)
[2022-12-13 11:43] LABS: CPK CREATINE PHOSPHOKINASE 93 U/L (34-145)
== END ==
LOC: M PLALAB 08:08
PROVIDERS: ATTEND Internal Medicine
DX: F41.1 Generalized anxiety disorder (principal); I10 Essential (primary) hypertension; I48.0 Paroxysmal atrial fibrillation; E78.00 Pure hypercholesterolemia, unspecified

== ENCOUNTER → 2022-12-29 | Outpatient (CLI) | payer MEDICARE, OTHER | LOC: M WHC 08:03 | PROVIDERS: ATTEND Internal Medicine | DX: Z12.31 Encounter for screening mammogram for malignant neoplasm of breast (principal); M19.90 Unspecified osteoarthritis, unspecified site; M85.88 Other specified disorders of bone density and structure, other site; Z85.3 Personal history of malignant neoplasm of breast | CPT/HCPCS: 77066; 77080; G0279 ==

== ENCOUNTER → 2023-01-05 | Outpatient (CLI) | payer MEDICARE, OTHER ==
[~2023-01-05] MED LIST changes: +ATOR1TAB19; +CALC500C16 PO; +DULO1CAP5; +EQL50TAB2 PO; +NOXI1TAB PO
== END ==
LOC: M ONCR 12:43
PROVIDERS: ATTEND General Practice
DX: C44.321 Squamous cell carcinoma of skin of nose (principal); C50.911 Malignant neoplasm of unspecified site of right female breast; Z71.2 Person consulting for explanation of examination or test findings; Z79.01 Long term (current) use of anticoagulants; Z79.811 Long term (current) use of aromatase inhibitors; Z79.899 Other long term (current) drug therapy; Z88.1 Allergy status to other antibiotic agents; Z88.2 Allergy status to sulfonamides; Z91.018 Allergy to other foods

== ENCOUNTER → 2023-03-01 | Outpatient (RCR) | payer MEDICARE, OTHER | LOC: M ONCR 01-31 08:00 | PROVIDERS: ATTEND General Practice | DX: Z51.0 Encounter for antineoplastic radiation therapy (principal); C44.321 Squamous cell carcinoma of skin of nose ==

== ENCOUNTER 2023-03-04 07:52 | Outpatient (RCR) | payer MEDICARE, OTHER | END 2023-03-31 | LOC: M ONCR 07:52 | PROVIDERS: ATTEND General Practice | DX: Z51.0 Encounter for antineoplastic radiation therapy (principal); C44.321 Squamous cell carcinoma of skin of nose ==

== ENCOUNTER → 2023-03-16 | Outpatient (CLI) | payer MEDICARE, OTHER ==
[2023-03-16 14:53] LABS: ALBUMIN 3.5 G/DL (3.2-5.2); ALKALINE PHOSPHATASE 53 U/L (46-116); ALT/SGPT 18 U/L (7.0-40); AST/SGOT 18 U/L (<34); BILIRUBIN,TOTAL 0.8 MG/DL (0.3-1.2); BLOOD UREA NITROGEN 20 MG/DL (9-23); CALCIUM LEVEL 9.2 MG/DL (8.3-10.6); CARBON DIOXIDE LEVEL 29 MMOL/L (20-31); CHLORIDE LEVEL 105 MMOL/L (98-107); CHOLESTEROL LEVEL 271 MG/DL (<200); CHOLESTEROL RISK RATIO 3.68 (<5); CREATININE FOR GFR 0.84 MG/DL (0.55-1.30); GLOMERULAR FILTRATION RATE > 60.0 (>45); GLUCOSE, FASTING 85 MG/DL (74-106); HDL CHOLESTEROL 73.6 MG/DL (>40); LDL CHOLESTEROL 175.8 MG/DL (<100); NON-HDL-C 197.4 MG/DL; SODIUM LEVEL 142 MMOL/L (136-145); TRIGLYCERIDES LEVEL 108 MG/DL (<150)
== END ==
LOC: M PLALAB 08:48
PROVIDERS: ATTEND Nurse Practitioner Family
DX: E78.5 Hyperlipidemia, unspecified (principal)

== ENCOUNTER → 2023-03-16 | Outpatient (CLI) | payer MEDICARE, OTHER ==
[2023-03-16 14:54] LABS: BLOOD UREA NITROGEN 20 MG/DL (9-23); CALCIUM LEVEL 9.2 MG/DL (8.3-10.6); CARBON DIOXIDE LEVEL 29 MMOL/L (20-31); CHLORIDE LEVEL 107 MMOL/L (98-107); CHOLESTEROL LEVEL 272 MG/DL (<200); CHOLESTEROL RISK RATIO 3.69 (<5); CREATININE FOR GFR 0.83 MG/DL (0.55-1.30); GLOMERULAR FILTRATION RATE > 60.0 (>45); GLUCOSE, FASTING 84 MG/DL (74-106); HDL CHOLESTEROL 73.7 MG/DL (>40); LDL CHOLESTEROL 176.1 MG/DL (<100); NON-HDL-C 198.3 MG/DL; POTASSIUM SERUM 4.1 MMOL/L (3.5-5.1); SODIUM LEVEL 142 MMOL/L (136-145); TRIGLYCERIDES LEVEL 111 MG/DL (<150)
== END ==
LOC: M PLALAB 08:42
PROVIDERS: ATTEND Internal Medicine
DX: E78.00 Pure hypercholesterolemia, unspecified (principal); I10 Essential (primary) hypertension; Z79.01 Long term (current) use of anticoagulants; M85.89 Other specified disorders of bone density and structure, multiple sites

== ENCOUNTER → 2023-04-07 | Outpatient (CLI) | payer MEDICARE, OTHER | LOC: M ONCR 08:26 | PROVIDERS: ATTEND General Practice | DX: Z08 Encounter for follow-up examination after completed treatment for malignant neoplasm (principal); Z85.828 Personal history of other malignant neoplasm of skin; Z92.3 Personal history of irradiation ==

== ENCOUNTER → 2023-06-07 | Outpatient (CLI) | payer MEDICARE, OTHER ==
[~2023-06-07] MED LIST changes: -ATOR1TAB19; +ATOR1TAB19 PO
== END ==
LOC: M ONCR 08:51
PROVIDERS: ATTEND General Practice
DX: L98.8 Other specified disorders of the skin and subcutaneous tissue (principal); Z85.828 Personal history of other malignant neoplasm of skin; Z92.3 Personal history of irradiation

== ENCOUNTER → 2023-06-16 | Outpatient (CLI) | payer MEDICARE, OTHER ==
[2023-06-16 15:29] LABS: CHOLESTEROL RISK RATIO 2.39 (<5); HDL CHOLESTEROL 82.4 MG/DL (>40); LDL CHOLESTEROL 89.8 MG/DL (<100); NON-HDL-C 114.6 MG/DL
== END ==
LOC: M PLALAB 11:03
PROVIDERS: ATTEND Nurse Practitioner Family
DX: E78.49 Other hyperlipidemia (principal)

== ENCOUNTER → 2023-08-12 | Outpatient (CLI) | payer MEDICARE, OTHER ==
[~2023-08-12] MED LIST changes: +COQ1200C3 PO; +EXEM25TA PO
[2023-08-12 18:41] LABS: BASO % 0.3 % (0.0-1.0); EOS # 0.2 10^3/uL (0.0-0.5); EOS % 2.6 % (0.0-3.0); HEMATOCRIT 44.8 % (36.0-47.0); HEMOGLOBIN 14.6 g/dl (12.0-15.5); LYMPH # 2.1 10^3/uL (1.5-5.0); LYMPH % 30.3 % (24.0-44.0); MEAN CORPUSCULAR HEMOGLOBIN 31.9 pg (27.0-33.0); MEAN CORPUSCULAR HGB CONC 32.6 g/dl (32.0-36.5); MONO # 0.6 10^3/uL (0.0-0.8); MONO % 8.6 % (2.0-8.0); NEUTROPHILS % 58.1 % (36.0-66.0); PLATELET COUNT, AUTOMATED 221 10^3/uL (150-450); RED BLOOD COUNT 4.57 10^6/uL (4.00-5.40); WHITE BLOOD COUNT 6.8 10^3/uL (4.0-10.0)
[2023-08-12 19:02] LABS: ALBUMIN 3.7 G/DL (3.2-5.2); ALKALINE PHOSPHATASE 49 U/L (46-116); ALT/SGPT 19 U/L (7.0-40); AST/SGOT 19 U/L (<34); BILIRUBIN,TOTAL 0.2 MG/DL (0.3-1.2); BLOOD UREA NITROGEN 21 MG/DL (9-23); CALCIUM LEVEL 9.4 MG/DL (8.3-10.6); CARBON DIOXIDE LEVEL 30 MMOL/L (20-31); CHLORIDE LEVEL 107 MMOL/L (98-107); CREATININE FOR GFR 0.86 MG/DL (0.55-1.30); GLOMERULAR FILTRATION RATE > 60.0 (>45); GLUCOSE, FASTING 88 MG/DL (74-106); POTASSIUM SERUM 4.4 MMOL/L (3.5-5.1); SODIUM LEVEL 142 MMOL/L (136-145); TOTAL PROTEIN 6.1 G/DL (5.7-8.2)
== END ==
LOC: M PLAIMG 15:51
PROVIDERS: ATTEND Nurse Practitioner
DX: C50.919 Malignant neoplasm of unspecified site of unspecified female breast (principal)

== ENCOUNTER → 2023-10-03 | Outpatient (CLI) | payer MEDICARE, OTHER ==
[~2023-10-03] MED LIST changes: +ROSU5TAB40; +ROSU5TAB40 PO; -ROSU5TAB5; -ROSU5TAB5 PO
[2023-10-03 13:27] LABS: C REACTIVE PROTEIN QUANTITATIV < 0.40 MG/DL (<1.0)
== END ==
LOC: M PLALAB 10:31
PROVIDERS: ATTEND Internal Medicine
DX: R53.83 Other fatigue (principal); M79.10 Myalgia, unspecified site

== ENCOUNTER → 2023-11-25 | Outpatient (CLI) | payer MEDICARE, OTHER ==
[2023-11-25 12:05] LABS: BASO % 0.4 % (0.0-1.0); EOS # 0.2 10^3/uL (0.0-0.5); EOS % 3.3 % (0.0-3.0); HEMATOCRIT 44.9 % (36.0-47.0); HEMOGLOBIN 14.5 g/dl (12.0-15.5); LYMPH % 37.9 % (24.0-44.0); MEAN CORPUSCULAR HEMOGLOBIN 31.5 pg (27.0-33.0); MEAN CORPUSCULAR HGB CONC 32.3 g/dl (32.0-36.5); MEAN CORPUSCULAR VOLUME 97.6 fl (80.0-96.0); MONO # 0.5 10^3/uL (0.0-0.8); MONO % 10.3 % (2.0-8.0); NEUTROPHILS # 2.5 10^3/uL (1.5-8.5); NEUTROPHILS % 47.9 % (36.0-66.0); PLATELET COUNT, AUTOMATED 209 10^3/uL (150-450); WHITE BLOOD COUNT 5.1 10^3/uL (4.0-10.0)
[2023-11-25 12:32] LABS: ALBUMIN 3.5 G/DL (3.2-5.2); ALKALINE PHOSPHATASE 46 U/L (46-116); ALT/SGPT 19 U/L (7.0-40); APPEARANCE, URINE CLEAR (CLEAR); AST/SGOT 16 U/L (<34); BACTERIA, URINE AUTO NEGATIVE (NEGATIVE); BILIRUBIN, URINE AUTO NEGATIVE (NEGATIVE); BILIRUBIN,TOTAL 0.6 MG/DL (0.3-1.2); BLOOD UREA NITROGEN 22 MG/DL (9-23); BLOOD, URINE BLOOD NEGATIVE (NEGATIVE); CALCIUM LEVEL 9.4 MG/DL (8.3-10.6); CARBON DIOXIDE LEVEL 31 MMOL/L (20-31); CHLORIDE LEVEL 107 MMOL/L (98-107); CHOLESTEROL LEVEL 190 MG/DL (<200); CHOLESTEROL RISK RATIO 2.65 (<5); COLOR, URINE YELLOW (YELLOW); CREATININE FOR GFR 0.91 MG/DL (0.55-1.30); GLOMERULAR FILTRATION RATE > 60.0 (>45); GLUCOSE, FASTING 93 MG/DL (74-106); GLUCOSE, URINE (UA) AUTO NEGATIVE (NEGATIVE); HDL CHOLESTEROL 71.6 MG/DL (>40); KETONE, URINE AUTO NEGATIVE (NEGATIVE); LDL CHOLESTEROL 97.8 MG/DL (<100); LEUKOCYTE ESTERASE, URINE AUTO NEGATIVE (NEGATIVE); NITRITE, URINE AUTO NEGATIVE (NEGATIVE); NON-HDL-C 118.4 MG/DL; POTASSIUM SERUM 4.4 MMOL/L (3.5-5.1); PROTEIN, URINE AUTO NEGATIVE (NEGATIVE); RBC, URINE AUTO 1 /HPF (0-3); SODIUM LEVEL 142 MMOL/L (136-145); SPECIFIC GRAVITY URINE AUTO 1.012 (1.002-1.035); SQUAMOUS EPITHELIAL CELL UR AU 0 /HPF (0-6); TOTAL PROTEIN 5.8 G/DL (5.7-8.2); TRIGLYCERIDES LEVEL 103 MG/DL (<150); UROBILINOGEN, URINE AUTO 0.2 mg/dL (0.0-2.0); WBC, URINE AUTO 3 /HPF (0-3)
[2023-11-25 12:37] LABS: THYROID STIMULATING HORMONE 1.609 uIU/ML (0.55-4.78)
== END ==
LOC: M PLALAB 07:46
PROVIDERS: ATTEND Internal Medicine
DX: I10 Essential (primary) hypertension (principal); E78.00 Pure hypercholesterolemia, unspecified; F41.1 Generalized anxiety disorder

== ENCOUNTER → 2024-01-03 | Outpatient (CLI) | payer MEDICARE, OTHER | LOC: M WHC 12:27 | PROVIDERS: ATTEND Nurse Practitioner | DX: Z12.31 Encounter for screening mammogram for malignant neoplasm of breast (principal); Z85.3 Personal history of malignant neoplasm of breast | CPT/HCPCS: 77066; G0279 ==

== ENCOUNTER → 2024-06-14 | Outpatient (CLI) | payer MEDICARE, OTHER ==
[~2024-06-14] MED LIST changes: -ROSU5TAB40; -ROSU5TAB40 PO; +ROSU5TAB49; +ROSU5TAB49 PO
[2024-06-14 11:16] LABS: BASO % 0.4 % (0.0-1.0); EOS # 0.1 10^3/uL (0.0-0.5); EOS % 2.8 % (0.0-3.0); HEMATOCRIT 45.6 % (36.0-47.0); HEMOGLOBIN 15.1 g/dl (12.0-15.5); LYMPH # 1.9 10^3/uL (1.5-5.0); LYMPH % 38.7 % (24.0-44.0); MEAN CORPUSCULAR HEMOGLOBIN 32.2 pg (27.0-33.0); MEAN CORPUSCULAR HGB CONC 33.1 g/dl (32.0-36.5); MEAN CORPUSCULAR VOLUME 97.2 fl (80.0-96.0); MONO # 0.5 10^3/uL (0.0-0.8); MONO % 10.7 % (2.0-8.0); NEUTROPHILS # 2.3 10^3/uL (1.5-8.5); PLATELET COUNT, AUTOMATED 261 10^3/uL (150-450); RED BLOOD COUNT 4.69 10^6/uL (4.00-5.40); WHITE BLOOD COUNT 4.9 10^3/uL (4.0-10.0)
[2024-06-14 11:18] LABS: ALBUMIN 3.4 G/DL (3.2-5.2); ALKALINE PHOSPHATASE 53 U/L (35-104); ALT/SGPT 21 U/L (7.0-40); AST/SGOT 20 U/L (<34); BILIRUBIN,TOTAL 0.6 MG/DL (0.3-1.2); BLOOD UREA NITROGEN 21 MG/DL (9-23); CALCIUM LEVEL 9.1 MG/DL (8.3-10.6); CARBON DIOXIDE LEVEL 31 MMOL/L (20-31); CHLORIDE LEVEL 105 MMOL/L (98-107); CHOLESTEROL LEVEL 201 MG/DL (<200); CHOLESTEROL RISK RATIO 2.56 (<5); GLOMERULAR FILTRATION RATE > 60.0 (>45); GLUCOSE, FASTING 91 MG/DL (74-106); HDL CHOLESTEROL 78.3 MG/DL (>40); LDL CHOLESTEROL 102.3 MG/DL (<100); NON-HDL-C 122.7 MG/DL; POTASSIUM SERUM 4.6 MMOL/L (3.5-5.1); SODIUM LEVEL 145 MMOL/L (136-145); TOTAL PROTEIN 6.2 G/DL (5.7-8.2); TRIGLYCERIDES LEVEL 102 MG/DL (<150)
[2024-06-14 11:19] LABS: THYROID STIMULATING HORMONE 2.147 uIU/ML (0.55-4.78)
[2024-06-14 11:25] LABS: CPK CREATINE PHOSPHOKINASE 112 U/L (34-145)
== END ==
LOC: M PLALAB 07:15
PROVIDERS: ATTEND Internal Medicine
DX: E78.00 Pure hypercholesterolemia, unspecified (principal); F41.1 Generalized anxiety disorder

== ENCOUNTER → 2024-12-13 | Outpatient (CLI) | payer MEDICARE, OTHER ==
[~2024-12-13] MED LIST changes: -EQL50TAB2 PO; +VITA1TAB82 PO
[2024-12-13 14:13] LABS: BASO # 0.0 10^3/uL (0.0-0.2); BASO % 0.5 % (0.0-1.0); EOS # 0.1 10^3/uL (0.0-0.5); EOS % 2.3 % (0.0-3.0); LYMPH # 1.5 10^3/uL (1.5-5.0); LYMPH % 27.1 % (24.0-44.0); MONO # 0.5 10^3/uL (0.0-0.8); MONO % 9.2 % (2.0-8.0); NEUTROPHILS # 3.4 10^3/uL (1.5-8.5); NEUTROPHILS % 60.7 % (36.0-66.0); PLATELET COUNT, AUTOMATED 243 10^3/uL (150-450)
[2024-12-13 14:16] LABS: ALT/SGPT 23.0 U/L (7.0-40); AST/SGOT 27.0 U/L (<34); CALCIUM LEVEL 9.1 MG/DL (8.3-10.6); CARBON DIOXIDE LEVEL 29.0 MMOL/L (20-31); CHLORIDE LEVEL 104.0 MMOL/L (98-107); CHOLESTEROL LEVEL 204.0 MG/DL (<200); CHOLESTEROL RISK RATIO 2.75 (<5); CREATININE FOR GFR 0.88 MG/DL (0.55-1.30); GLOMERULAR FILTRATION RATE 70.7 (>39); LDL CHOLESTEROL 109.5 MG/DL (<100); MAGNESIUM LEVEL 2.2 MG/DL (1.8-2.4); NON-HDL-C 129.9 MG/DL; POTASSIUM SERUM 4.5 MMOL/L (3.5-5.1); SODIUM LEVEL 142.0 MMOL/L (136-145); TRIGLYCERIDES LEVEL 102.0 MG/DL (<150)
[2024-12-13 14:17] LABS: CPK CREATINE PHOSPHOKINASE 84.0 U/L (34-145); VITAMIN B12 LEVEL 1089.0 PG/ML (211-911)
[2024-12-13 15:36] LABS: APPEARANCE, URINE HAZY (CLEAR); BACTERIA, URINE AUTO NEGATIVE (NEGATIVE); BILIRUBIN, URINE AUTO NEGATIVE (NEGATIVE); BLOOD, URINE BLOOD NEGATIVE (NEGATIVE); CALCIUM OXALATE CRYSTALS SMALL; GLUCOSE, URINE (UA) AUTO NEGATIVE (NEGATIVE); KETONE, URINE AUTO NEGATIVE (NEGATIVE); LEUKOCYTE ESTERASE, URINE AUTO NEGATIVE (NEGATIVE); MUCUS, URINE SMALL (NEGATIVE); NITRITE, URINE AUTO NEGATIVE (NEGATIVE); PROTEIN, URINE AUTO NEGATIVE (NEGATIVE); RBC, URINE AUTO 0 /HPF (0-3); SPECIFIC GRAVITY URINE AUTO 1.020 (1.002-1.035); SQUAMOUS EPITHELIAL CELL UR AU 0 /HPF (0-6); UROBILINOGEN, URINE AUTO 0.2 mg/dL (0.0-2.0); WBC, URINE AUTO 1 /HPF (0-3)
== END ==
LOC: M PLALAB 09:53
PROVIDERS: ATTEND Internal Medicine
DX: Z00.00 Encounter for general adult medical examination without abnormal findings (principal); I10 Essential (primary) hypertension; F41.1 Generalized anxiety disorder; E78.00 Pure hypercholesterolemia, unspecified

== ENCOUNTER → 2025-01-01 | Outpatient (CLI) | payer MEDICARE, OTHER | LOC: M WHC 11:06 | PROVIDERS: ATTEND Internal Medicine | DX: Z13.820 Encounter for screening for osteoporosis (principal); M85.89 Other specified disorders of bone density and structure, multiple sites ==

== ENCOUNTER → 2025-01-03 | Outpatient (CLI) | payer MEDICARE, OTHER | LOC: M WHC 11:46 | PROVIDERS: ATTEND Internal Medicine | DX: Z12.31 Encounter for screening mammogram for malignant neoplasm of breast (principal) ==

== ENCOUNTER → 2025-01-28 | Outpatient (CLI) | payer MEDICARE, OTHER ==
[2025-01-28 18:48] LABS: C REACTIVE PROTEIN QUANTITATIV < 0.50 MG/DL (<1.0); MAGNESIUM LEVEL 2.2 MG/DL (1.8-2.4)
[2025-01-28 18:49] LABS: RHEUMATOID FACTOR QUANT 9.6 IU/ML (<14)
[2025-01-28 18:54] LABS: CPK CREATINE PHOSPHOKINASE 93 U/L (34-145)
== END ==
LOC: M PLALAB 14:10
PROVIDERS: ATTEND Internal Medicine
DX: M19.90 Unspecified osteoarthritis, unspecified site (principal); M79.10 Myalgia, unspecified site; I27.20 Pulmonary hypertension, unspecified; I10 Essential (primary) hypertension; R53.83 Other fatigue

== ENCOUNTER → 2025-04-01 | Outpatient (CLI) | payer MEDICARE, OTHER ==
[2025-04-01 10:21] LABS: PLATELET COUNT, AUTOMATED 221 10^3/uL (150-450)
[2025-04-01 10:30] LABS: ALT/SGPT 16.0 U/L (7.0-40); AST/SGOT 22.0 U/L (<34); CALCIUM LEVEL 8.7 MG/DL (8.3-10.6); CARBON DIOXIDE LEVEL 29.0 MMOL/L (20-31); CHLORIDE LEVEL 106.0 MMOL/L (98-107); CHOLESTEROL LEVEL 214.0 MG/DL (<200); CHOLESTEROL RISK RATIO 3.09 (<5); CREATININE FOR GFR 0.91 MG/DL (0.55-1.30); GLOMERULAR FILTRATION RATE 67.9 (>39); LDL CHOLESTEROL 122.0 MG/DL (<100); MAGNESIUM LEVEL 2.0 MG/DL (1.8-2.4); NON-HDL-C 144.8 MG/DL; POTASSIUM SERUM 4.7 MMOL/L (3.5-5.1); SODIUM LEVEL 145.0 MMOL/L (136-145); TRIGLYCERIDES LEVEL 114.0 MG/DL (<150)
[2025-04-01 10:31] LABS: CPK CREATINE PHOSPHOKINASE 70.0 U/L (34-145)
== END ==
LOC: M PLALAB 08:05
PROVIDERS: ATTEND Internal Medicine
DX: I12.9 Hypertensive chronic kidney disease with stage 1 through stage 4 chronic kidney disease, or unspecified chronic kidney disease (principal); E78.00 Pure hypercholesterolemia, unspecified; F41.1 Generalized anxiety disorder; N18.31 Chronic kidney disease, stage 3a

== ENCOUNTER → 2025-04-18 | Outpatient (CLI) | payer MEDICARE, OTHER | LOC: M RAD 12:52 | PROVIDERS: ATTEND Internal Medicine | DX: I70.201 Unspecified atherosclerosis of native arteries of extremities, right leg (principal) ==